=== PATIENT | male | born 1950 | race Caucasian/White ===

== ENCOUNTER 2020-02-23 14:30 | Inpatient (IN) | payer MEDICARE, MEDICAID ==
[~2020-02-23] VITALS: Ht 170.2 cm; Wt 64.9 kg
[2020-02-23] MEDS ORDERED: thiamine 100mg tablet PO ONE (15:25)
[2020-02-23] MEDS ORDERED: folic acid 1mg tablet PO ONE (15:25)
[2020-02-23] MEDS ORDERED: normal saline 1000ML IV soln IVB ONE ×2 (15:25→16:50)
[2020-02-23 15:40] LABS: BASOPHILS % (AUTO) 0.3 % (0-1); EOSINOPHILS % (AUTO) 0.1 % (0-6); HEMATOCRIT 30.7 % (42.0-52.0); HEMOGLOBIN 10.4 g/dl (14.0-17.9); LYMPHOCYTES # (AUTO) 0.4 X10'3 (1.1-4.8); LYMPHOCYTES % (AUTO) 5.2 % (21-51); MEAN CORPUSCULAR HGB CONC 33.9 g/dL (33.0-36.5); MEAN CORPUSCULAR VOLUME 103.4 FL (78-98); MEAN PLATELET VOLUME 7.1 FL (7.4-10.4); MONOCYTES # (AUTO) 1.2 X10'3 (0-0.9); MONOCYTES % (AUTO) 15.9 % (2-12); NEUTROPHILS # (AUTO) 5.9 X10'3 (1.8-7.7); NEUTROPHILS % (AUTO) 78.5 % (42-75); PLATELET COUNT 319 X10'3 (140-440); RED BLOOD COUNT 2.97 X10'6 (4.70-6.10); RED CELL DISTRIBUTION WIDTH 14.1 % (11.5-14.5); WHITE BLOOD COUNT 7.5 X10'3 (4.5-11.0)
[2020-02-23 15:53] LABS: PARTIAL THROMBOPLASTIN TIME 26 SECONDS (22-32)
[2020-02-23 16:00] LABS: ALANINE AMINOTRANSFERASE 47 U/L (12-78); ALBUMIN 3.4 G/DL (3.4-5.0); ALBUMIN/GLOBULIN RATIO 0.9 (1.1-1.5); ALKALINE PHOSPHATASE 72 IU/L (46-116); ANION GAP 18 (8-16); ASPARTATE AMINO TRANSFERASE 75 U/L (10-37); BILIRUBIN,TOTAL 1.1 MG/DL (0.1-1.0); BLOOD UREA NITROGEN 66 MG/DL (7-18); BUN/CREATININE RATIO 24.1 (5.4-32.0); CALCIUM 8.9 MG/DL (8.5-10.1); CHLORIDE 92 MMOL/L (99-107); CREATININE 2.74 MG/DL (0.60-1.10); GLUCOSE 89 MG/DL (70-104); MAGNESIUM 1.5 MG/DL (1.5-2.4); SODIUM 132 MMOL/L (135-145); TOTAL CARBON DIOXIDE 22.4 MMOL/L (24-32); TOTAL PROTEIN 7.1 G/DL (6.4-8.2); eGFR 23 ML/MIN
[2020-02-23 16:03] LABS: POTASSIUM 2.9 MMOL/L (3.5-5.1)
[2020-02-23 16:03] LABS: CLARITY,URINE CLEAR (Clear); COLOR,URINE YELLOW (Yellow); GLUCOSE, URINE NEGATIVE (Neg); KETONES,URINE 15 mg/dl (Neg); LEUKOCYTE ESTERASE ,URINE NEGATIVE (Neg); NITRITES, URINE NEGATIVE (Neg); OCCULT BLOOD,URINE TRACE-INTACT (Neg); PROTEIN,URINE TRACE mg/dl (Neg); UROBILINOGEN,URINE 0.2 E.U/dL (0.2-1.0)
[2020-02-23] MEDS ORDERED: Potassium Cl inj 20 MEQ, magnesium sulf injection 2 GM, folic acid inj. 1 MG, thiamine ... IV ONE ×6 (16:07)
[2020-02-23 16:09] LABS: ETHANOL < 0.010 GM/DL (0.0-0.010); NUCLEATED RED BLOOD CELLS 1 /100WBC (0-0); TOTAL CELLS COUNTED 100
[2020-02-23 16:10] LABS: PLATELET ESTIMATE NORMAL
[2020-02-23 16:11] LABS: UA COLLECTION TYPE URINAL
[2020-02-23 16:15] LABS: BACTERIA,URINE NONE SEEN /HPF (Neg); RBC,URINE NONE SEEN /HPF (0-2); WBC,URINE 0-4 /HPF (0-4)
[2020-02-23 16:16] LABS: HYALINE CASTS 0-3 /LPF (NEGATIVE); MUCUS STRANDS FEW /LPF (Neg); SQUAMOUS EPITHELIAL CELL,UR FEW /LPF (FEW)
[2020-02-23] MEDS ORDERED: Potassium Cl inj 20 MEQ, magnesium sulf injection 2 GM, thiamine inj. 100 MG, MVI, adul... IV ONE ×5 (16:20)
[2020-02-23] MEDS ORDERED: folic acid 1mg/0.2ml inj IV ONE (16:20)
[2020-02-23 16:27] LABS: LIPASE 1614 U/L (73-393)
[2020-02-23] MEDS ORDERED: LEVO137T2 PO (16:52)
[2020-02-23] MEDS ORDERED: ENAL20TA PO (16:52)
[2020-02-23] MEDS ORDERED: HCTZ25T PO (16:52)
[2020-02-23] MEDS ORDERED: ALLO100T25 PO (16:52)
[2020-02-23] MEDS ORDERED: dicyclomine 10 MG capsule PO PRN (16:55)
[2020-02-23] MEDS ORDERED: acetaminophen 325mg tablet PO PRN ×2 (16:55)
[2020-02-23] MEDS ORDERED: dextrose 50%-water 50ml dispensing syringe IV PRN (16:55)
[2020-02-23] MEDS ORDERED: ondansetron/PF 4mg/2ml inj IV PRN (16:55)
[2020-02-23] MEDS ORDERED: HYDROcodone/acetaminophen 10/325mg tab PO PRN (16:55)
[2020-02-23] MEDS ORDERED: haloperidol lactate 5mg/ml inj IM PRN (16:55)
[2020-02-23] MEDS ORDERED: magnesium hydroxide 30ml (MOM) UD suspension PO PRN (16:55)
[2020-02-23] MEDS ORDERED: loperamide 2mg capsule PO PRN ×2 (16:55)
[2020-02-23] MEDS ORDERED: HYDROcodone/acetaminophen 5mg/325mg tablet PO PRN (16:55)
[2020-02-23] MEDS ORDERED: haloperidol 5mg tablet PO PRN (16:55)
[2020-02-23] MEDS ORDERED: morphine 2 MG/ML inj. syringe IV PRN ×2 (16:55)
[2020-02-23] MEDS ORDERED: LORazepam 2 mg/ml vial IV PRN (16:55)
[2020-02-23] MEDS ORDERED: thiamine 100mg/ml 2ml inj. IV ONE (16:55)
[2020-02-23] MEDS ORDERED: mag hydrox/Alum hydrox/simeth 30ml oral suspension PO PRN (16:55)
[2020-02-23] MEDS ORDERED: metoclopramide 5 mg/ml inj IV PRN (16:55)
--- NOTE | 2020-02-23 18:41 | NUR ---
received report from Liban DISA RN, nurse just received report themself so not much known, pt appears alert, pt needs K replacement ordered, pt is ETOH but last drink unknown, pancreatitis, VS stable, pt on RA, awaiting arrival to unit.
--- NOTE | 2020-02-23 18:51 | NUR ---
NOTIFIED PAGER ID: [phone] MESSAGE: Romeo Anne, [id number]- pt K is 2.9, Mg 1.5, no replacement orders in, may you add K replacement. thank you
--- NOTE | 2020-02-23 18:55 | NUR ---
pt arrived to unit with all belongings, tele monitor attached, pt oriented to room, pt transferred from rranchita to bed, VS stable.
[2020-02-23 19:17] VITALS: BP 117/78
[2020-02-23] MEDS ORDERED: potassium CL 10mEq/100ml bag 100 ML IV PRN (19:50)
[2020-02-23] MEDS ORDERED: magnesium Cl slow-release 64mg tablet PO PRN (19:50)
[2020-02-23] MEDS ORDERED: magnesium 4gm in 100ml NS 100 ML IV PRN (19:50)
[2020-02-23] MEDS: potassium Cl 20 mEq SR tablet PO PRN (21:57)
[2020-02-23] MEDS: normal saline 1000ml 1,000 ML IV SCH (21:58)
[2020-02-23 22:00] VITALS: BP 126/83
[2020-02-24 02:00] VITALS: BP 119/86
[2020-02-24 04:33] LABS: BASOPHILS % (AUTO) 0.4 % (0-1); EOSINOPHILS # (AUTO) 0.1 X10'3 (0-0.9); EOSINOPHILS % (AUTO) 1.5 % (0-6); HEMATOCRIT 30.5 % (42.0-52.0); HEMOGLOBIN 10.5 g/dl (14.0-17.9); LYMPHOCYTES # (AUTO) 0.7 X10'3 (1.1-4.8); LYMPHOCYTES % (AUTO) 12.3 % (21-51); MEAN CORPUSCULAR HEMOGLOBIN 35.5 PG (27.0-31.0); MEAN CORPUSCULAR HGB CONC 34.3 g/dL (33.0-36.5); MEAN CORPUSCULAR VOLUME 103.6 FL (78-98); MEAN PLATELET VOLUME 6.8 FL (7.4-10.4); MONOCYTES # (AUTO) 0.9 X10'3 (0-0.9); MONOCYTES % (AUTO) 16.3 % (2-12); NEUTROPHILS # (AUTO) 3.8 X10'3 (1.8-7.7); NEUTROPHILS % (AUTO) 69.5 % (42-75); PLATELET COUNT 296 X10'3 (140-440); RED BLOOD COUNT 2.95 X10'6 (4.70-6.10); RED CELL DISTRIBUTION WIDTH 14.2 % (11.5-14.5); WHITE BLOOD COUNT 5.5 X10'3 (4.5-11.0)
--- NOTE | 2020-02-24 04:33 | NUR ---
pt refused to answer DART questions, states "i have had enough". have attempted many times throughout the night, hopefully pt will be more receptive during the day.
[2020-02-24 04:50] LABS: ALBUMIN 3.1 G/DL (3.4-5.0); ANION GAP 14 (8-16); BLOOD UREA NITROGEN 55 MG/DL (7-18); BUN/CREATININE RATIO 26.6 (5.4-32.0); CALCIUM 8.3 MG/DL (8.5-10.1); CHLORIDE 99 MMOL/L (99-107); CREATININE 2.07 MG/DL (0.60-1.10); GLUCOSE 82 MG/DL (70-104); POTASSIUM 3.2 MMOL/L (3.5-5.1); SODIUM 135 MMOL/L (135-145); TOTAL CARBON DIOXIDE 21.7 MMOL/L (24-32); eGFR 32 ML/MIN
[2020-02-24 06:00] VITALS: BP 122/81
--- NOTE | 2020-02-24 06:00 | NUR ---
Patient in room PCU 3023. I have received report from Travis RN and had the opportunity to ask questions and assume patient care.
--- NOTE | 2020-02-24 06:42 | NUR ---
Problems reprioritized. Patient report given, questions answered & plan of care reviewed with Chloe EVANS.
[2020-02-24] MEDS: K and/or MAG REPLACEMENT MC SCH ×2 (08:00→20:00)
[2020-02-24] MEDS ORDERED: enoxaparin 40mg/0.4ml syringe SQ SCH (08:00)
[2020-02-24] MEDS: folic acid 1mg tablet PO SCH (09:11)
[2020-02-24] MEDS: thiamine 100mg tablet PO SCH (09:11)
[2020-02-24] MEDS: potassium Cl 20 mEq SR tablet PO PRN ×2 (09:12→14:40)
[2020-02-24] MEDS: enoxaparin 40mg/0.4ml syringe SUBCUT SCH (09:12)
[2020-02-24] MEDS: multivitamins, therapeutics tablet PO SCH (09:12)
[2020-02-24] MEDS: normal saline 1000ml 1,000 ML IV SCH ×3 (09:17→22:52)
[2020-02-24 11:00] VITALS: BP 100/63
[2020-02-24 11:13] LABS: LIPASE 1505 U/L (73-393)
[2020-02-24 15:00] VITALS: BP 81/54
--- NOTE | 2020-02-24 18:15 | NUR ---
Problems reprioritized. Patient report given, questions answered & plan of care reviewed with Travis RN.
--- NOTE | 2020-02-24 18:30 | NUR ---
Patient in room PCU 3023. I have received report from Chloe EVANS and had the opportunity to ask questions and assume patient care.
[2020-02-24 19:00] VITALS: BP 111/80
[2020-02-24] MEDS: allopurinol 100mg tablet PO SCH (19:56)
[2020-02-24 23:00] VITALS: BP 135/86
[2020-02-25] MEDS: potassium Cl 20 mEq SR tablet PO PRN (00:38)
[2020-02-25 03:00] VITALS: BP 146/102
--- NOTE | 2020-02-25 03:58 | NUR ---
pt REFUSING CARE pt refuses to allow staff to clean his bottom of fecal matter and urine. pt yelling at staff "leave me the fuck alone". pt has excoriated/macerated back side from elimination waste. pt also threw soiled chucks at staff earlier in shift. offered a rectal tube to prevent further skin break down but this was refused. pt states "let me sit it in i dont care, my skin is fine", attempted to educate pt on importance of keeping clean (elimination waste) from contact with skin. pt repeated previous statement by yelling "leave me the fuck alone". will attempt to clean pt again at a later time.
[2020-02-25 05:52] LABS: BASOPHILS % (AUTO) 0.5 % (0-1); EOSINOPHILS # (AUTO) 0.1 X10'3 (0-0.9); EOSINOPHILS % (AUTO) 1.8 % (0-6); HEMATOCRIT 26.2 % (42.0-52.0); LYMPHOCYTES # (AUTO) 0.5 X10'3 (1.1-4.8); LYMPHOCYTES % (AUTO) 11.1 % (21-51); MEAN CORPUSCULAR HEMOGLOBIN 35.2 PG (27.0-31.0); MEAN CORPUSCULAR HGB CONC 34.3 g/dL (33.0-36.5); MEAN CORPUSCULAR VOLUME 102.5 FL (78-98); MEAN PLATELET VOLUME 6.8 FL (7.4-10.4); MONOCYTES # (AUTO) 0.6 X10'3 (0-0.9); MONOCYTES % (AUTO) 15.6 % (2-12); NEUTROPHILS # (AUTO) 2.9 X10'3 (1.8-7.7); PLATELET COUNT 280 X10'3 (140-440); RED BLOOD COUNT 2.56 X10'6 (4.70-6.10); RED CELL DISTRIBUTION WIDTH 13.9 % (11.5-14.5); WHITE BLOOD COUNT 4.1 X10'3 (4.5-11.0)
[2020-02-25 05:53] LABS: ALBUMIN 2.6 G/DL (3.4-5.0); ANION GAP 10 (8-16); BLOOD UREA NITROGEN 33 MG/DL (7-18); CALCIUM 8.1 MG/DL (8.5-10.1); CHLORIDE 102 MMOL/L (99-107); CREATININE 1.27 MG/DL (0.60-1.10); GLUCOSE 104 MG/DL (70-104); MAGNESIUM 1.4 MG/DL (1.5-2.4); POTASSIUM 3.6 MMOL/L (3.5-5.1); SODIUM 134 MMOL/L (135-145); TOTAL CARBON DIOXIDE 22.4 MMOL/L (24-32); eGFR 56 ML/MIN
--- NOTE | 2020-02-25 06:20 | NUR ---
Patient in room PCU 3023. I have received report from Travis RN and had the opportunity to ask questions and assume patient care.
--- NOTE | 2020-02-25 06:22 | NUR ---
Problems reprioritized. Patient report given, questions answered & plan of care reviewed with Chloe EVANS.
[2020-02-25] MEDS: enoxaparin 40mg/0.4ml syringe SUBCUT SCH (07:13)
[2020-02-25 07:18] LABS: ALANINE AMINOTRANSFERASE 29 U/L (12-78); ALBUMIN/GLOBULIN RATIO 0.9 (1.1-1.5); ALKALINE PHOSPHATASE 50 IU/L (46-116); ASPARTATE AMINO TRANSFERASE 39 U/L (10-37); BILIRUBIN,DIRECT 0.2 MG/DL (0-0.3); BILIRUBIN,TOTAL 0.5 MG/DL (0.1-1.0); LIPASE 962 U/L (73-393); TOTAL PROTEIN 5.4 G/DL (6.4-8.2)
[2020-02-25] MEDS: levoTHYROXINE 25mcg tablet PO SCH (07:30)
[2020-02-25] MEDS: levoTHYROXINE 112mcg tablet PO SCH (07:30)
--- NOTE | 2020-02-25 07:45 | NUR ---
Upon checking on the patient, I found he pulled his IV out and took his Tele monitor off. I educated him on the importance of these things, and he is not agreeable to. I am notifying Dr. Newell. Patient is uncompliant and refusing care at this time. Will continue to encourage complying with care.
[2020-02-25] MEDS: K and/or MAG REPLACEMENT MC SCH ×2 (08:00→20:00)
[2020-02-25] MEDS: allopurinol 100mg tablet PO SCH ×2 (08:00→20:00)
[2020-02-25] MEDS: folic acid 1mg tablet PO SCH (08:00)
[2020-02-25] MEDS: multivitamins, therapeutics tablet PO SCH (08:00)
[2020-02-25] MEDS: thiamine 100mg tablet PO SCH (08:00)
[2020-02-25] MEDS: normal saline 1000ml 1,000 ML IV SCH ×2 (08:52→17:29)
[2020-02-25 11:00] VITALS: BP 115/76
[2020-02-25 15:00] VITALS: BP 127/92
--- NOTE | 2020-02-25 16:17 | NUR ---
Patient in room PCU 3023. I have received report from Chloe EVANS and had the opportunity to ask questions , awaiting patient arrival from PCU
[2020-02-25 16:53] VITALS: BP 136/80
[2020-02-25] MEDS ORDERED: LORazepam 1 MG tablet PO PRN (16:55)
[2020-02-25 18:00] VITALS: BP 99/69
--- NOTE | 2020-02-25 19:25 | NUR ---
Problems reprioritized. Patient report given, questions answered & plan of care reviewed with NATHAN Davis.
--- NOTE | 2020-02-25 20:00 | NUR ---
pt refusing orthostatic vitals
--- NOTE | 2020-02-25 21:00 | NUR ---
patient refusing meds and PO Ativan. becoming increasingly agitated despite attempts to calm
[2020-02-25] MEDS: LORazepam 2 mg/ml vial IV PRN ×3 (21:17→23:45)
--- NOTE | 2020-02-25 21:40 | NUR ---
per pt, okay to talk to step daughter Sera if calls back
--- NOTE | 2020-02-25 22:35 | NUR ---
pt still attempting to get out of bed on own despite unsteadiness and attempts at reorientation
[2020-02-26] VITALS: BP 139/87
[2020-02-26] MEDS ORDERED: haloperidol lactate 5mg/ml inj IM PRN (00:10)
[2020-02-26] MEDS ORDERED: LORazepam 2 mg/ml vial IV PRN ×2 (00:10)
[2020-02-26] MEDS: normal saline 1000ml 1,000 ML IV SCH ×2 (04:52→14:52)
[2020-02-26 05:49] LABS: BASOPHILS % (AUTO) 0.6 % (0-1); EOSINOPHILS % (AUTO) 1.5 % (0-6); HEMATOCRIT 25.5 % (42.0-52.0); HEMOGLOBIN 8.6 g/dl (14.0-17.9); LYMPHOCYTES # (AUTO) 0.5 X10'3 (1.1-4.8); LYMPHOCYTES % (AUTO) 14.5 % (21-51); MEAN CORPUSCULAR HEMOGLOBIN 35.1 PG (27.0-31.0); MEAN CORPUSCULAR HGB CONC 33.9 g/dL (33.0-36.5); MEAN CORPUSCULAR VOLUME 103.6 FL (78-98); MEAN PLATELET VOLUME 6.9 FL (7.4-10.4); MONOCYTES # (AUTO) 0.6 X10'3 (0-0.9); MONOCYTES % (AUTO) 19.3 % (2-12); NEUTROPHILS # (AUTO) 2.2 X10'3 (1.8-7.7); NEUTROPHILS % (AUTO) 64.1 % (42-75); PLATELET COUNT 285 X10'3 (140-440); RED BLOOD COUNT 2.46 X10'6 (4.70-6.10); RED CELL DISTRIBUTION WIDTH 13.9 % (11.5-14.5); WHITE BLOOD COUNT 3.4 X10'3 (4.5-11.0)
[2020-02-26 06:03] LABS: ALBUMIN 2.7 G/DL (3.4-5.0); ANION GAP 10 (8-16); BLOOD UREA NITROGEN 18 MG/DL (7-18); CALCIUM 8.2 MG/DL (8.5-10.1); CHLORIDE 103 MMOL/L (99-107); CREATININE 1.06 MG/DL (0.60-1.10); GLUCOSE 95 MG/DL (70-104); MAGNESIUM 1.4 MG/DL (1.5-2.4); SODIUM 135 MMOL/L (135-145); TOTAL CARBON DIOXIDE 21.8 MMOL/L (24-32); eGFR 69 ML/MIN
--- NOTE | 2020-02-26 06:24 | NUR ---
Patient in room BAO 358. I have received report from NATHAN Davis and had the opportunity to ask questions and assume patient care.
[2020-02-26 06:29] LABS: ANISOCYTOSIS 1+; PLATELET ESTIMATE NORMAL; TOTAL CELLS COUNTED 100
[2020-02-26 07:00] VITALS: BP 114/87
[2020-02-26] MEDS: potassium Cl 20 mEq SR tablet PO PRN ×3 (07:22→17:57)
[2020-02-26] MEDS: allopurinol 100mg tablet PO SCH ×2 (07:23→21:50)
[2020-02-26] MEDS: levoTHYROXINE 25mcg tablet PO SCH (07:23)
[2020-02-26] MEDS: levoTHYROXINE 112mcg tablet PO SCH (07:23)
[2020-02-26] MEDS: folic acid 1mg tablet PO SCH (07:24)
[2020-02-26] MEDS: multivitamins, therapeutics tablet PO SCH (07:24)
[2020-02-26] MEDS: thiamine 100mg tablet PO SCH (07:24)
[2020-02-26] MEDS: enoxaparin 40mg/0.4ml syringe SUBCUT SCH (07:29)
[2020-02-26] MEDS: K and/or MAG REPLACEMENT MC SCH ×2 (08:00→20:00)
--- NOTE | 2020-02-26 10:49 | NUR ---
Pt sedated this morning. unable to have a conversation and difficult to arouse. Received order per Dr. Newell to hold all Ativan until pt comes back to his normal.
[2020-02-26 11:00] VITALS: BP 153/93
--- NOTE | 2020-02-26 15:05 | NUR ---
Pt climbed out of bed. was found kneeling holding to bedside rail. after assessment assisted pt back to bed. No s/s of injuries noted. V/S 97.7, 74, 14, 96% 130/82. Bed alarm on at this time. will cont. close monitoring.
--- NOTE | 2020-02-26 17:18 | NUR ---
Patient bed alarm went off, went to assess patient and patient was extremely weak and attempting to get up. Instructed patient that his nurse stated he's too weak to walk at this time only to start punching staff. Security was called and patient primary nurse was consulted to see if she would like me to administer any prn's and she asked me to administer the PRN halodol for agitation/aggression. Halodol administered in the right deltoid.
--- NOTE | 2020-02-26 18:37 | NUR ---
Problems reprioritized. Patient report given, questions answered & plan of care reviewed with NATHAN Davis. Pt resting quietly, last dose of PO K+ replacement given.
[2020-02-27] VITALS (11 sets, daily range): BP systolic 84–151; BP diastolic 41–94
[2020-02-27] MEDS: normal saline 1000ml 1,000 ML IV SCH ×3 (00:52→20:52)
--- NOTE | 2020-02-27 01:13 | NUR ---
pt changed after multiple refusals pt agreed to have bed changed due to incontinence. repeatedly shouted explicative. barrier cream applied to bottom. pt returned to resting comfortably after
[2020-02-27 05:11] LABS: BASOPHILS % (AUTO) 0.7 % (0-1); EOSINOPHILS # (AUTO) 0.1 X10'3 (0-0.9); EOSINOPHILS % (AUTO) 2.2 % (0-6); HEMATOCRIT 25.2 % (42.0-52.0); HEMOGLOBIN 8.6 g/dl (14.0-17.9); LYMPHOCYTES # (AUTO) 0.4 X10'3 (1.1-4.8); LYMPHOCYTES % (AUTO) 12.7 % (21-51); MEAN CORPUSCULAR HGB CONC 34.1 g/dL (33.0-36.5); MEAN CORPUSCULAR VOLUME 102.7 FL (78-98); MEAN PLATELET VOLUME 6.9 FL (7.4-10.4); MONOCYTES # (AUTO) 0.5 X10'3 (0-0.9); MONOCYTES % (AUTO) 13.9 % (2-12); NEUTROPHILS # (AUTO) 2.3 X10'3 (1.8-7.7); NEUTROPHILS % (AUTO) 70.5 % (42-75); PLATELET COUNT 327 X10'3 (140-440); RED BLOOD COUNT 2.45 X10'6 (4.70-6.10); RED CELL DISTRIBUTION WIDTH 14.2 % (11.5-14.5); WHITE BLOOD COUNT 3.3 X10'3 (4.5-11.0)
[2020-02-27 05:19] LABS: ALBUMIN 2.5 G/DL (3.4-5.0); ANION GAP 8 (8-16); BLOOD UREA NITROGEN 14 MG/DL (7-18); BUN/CREATININE RATIO 13.5 (5.4-32.0); CALCIUM 8.4 MG/DL (8.5-10.1); CHLORIDE 107 MMOL/L (99-107); CREATININE 1.04 MG/DL (0.60-1.10); GLUCOSE 103 MG/DL (70-104); MAGNESIUM 2.3 MG/DL (1.5-2.4); POTASSIUM 4.3 MMOL/L (3.5-5.1); SODIUM 136 MMOL/L (135-145); TOTAL CARBON DIOXIDE 21.5 MMOL/L (24-32); eGFR 70 ML/MIN
[2020-02-27] MEDS: folic acid 1mg tablet PO SCH (07:56)
[2020-02-27] MEDS: allopurinol 100mg tablet PO SCH ×2 (07:56→20:00)
[2020-02-27] MEDS: levoTHYROXINE 112mcg tablet PO SCH (07:56)
[2020-02-27] MEDS: levoTHYROXINE 25mcg tablet PO SCH (07:56)
[2020-02-27] MEDS: multivitamins, therapeutics tablet PO SCH (07:56)
[2020-02-27] MEDS: thiamine 100mg tablet PO SCH (07:56)
[2020-02-27] MEDS: enoxaparin 40mg/0.4ml syringe SUBCUT SCH (07:57)
[2020-02-27] MEDS: K and/or MAG REPLACEMENT MC SCH ×2 (08:00→20:00)
[2020-02-27] MEDS ORDERED: LORazepam 2 mg/ml vial IV PRN (16:55)
[2020-02-27] MEDS ORDERED: LORazepam 1 MG tablet PO PRN (16:55)
--- NOTE | 2020-02-27 17:55 | NUR ---
Patient leaving for GI Lab for MRCP procedure.
[2020-02-27] MEDS ORDERED: fentaNYL/PF 50MCG/1 ML 2ML syringe ONE (18:12)
[2020-02-27] MEDS ORDERED: iohexol 300 MG/1 ML 50ml polymer ONE (18:13)
[2020-02-27] MEDS ORDERED: LIDOcaine Viscous 15ml cup ONE (18:13)
[2020-02-27] MEDS ORDERED: MIDAZolam 5mg/5ml vial ONE (18:13)
[2020-02-27] MEDS ORDERED: glucagon, human recombinant 1mg kit ONE ×2 (18:13)
--- NOTE | 2020-02-27 18:40 | NUR ---
Problems reprioritized. Patient report given, questions answered & plan of care reviewed with NATHAN Davis.
[2020-02-27] MEDS ORDERED: levoFLOXACIN-Levaquin 500mg/D5 100 ML IV ONE (19:17)
--- NOTE | 2020-02-27 21:00 | NUR ---
RECEIVED REPORT FROM ALEXIS EVANS AND ASSUMED PATIENT CARE
[2020-02-28] VITALS: BP 130/83
--- NOTE | 2020-02-28 06:06 | NUR ---
REPORT GIVEN TO TIERNEY EVANS
--- NOTE | 2020-02-28 06:10 | NUR ---
Patient in room BAO 359. I have received report from NATHAN Berger and had the opportunity to ask questions and assume patient care.
[2020-02-28 06:15] LABS: BASOPHILS % (AUTO) 0.4 % (0-1); EOSINOPHILS # (AUTO) 0.1 X10'3 (0-0.9); EOSINOPHILS % (AUTO) 1.5 % (0-6); HEMATOCRIT 26.8 % (42.0-52.0); HEMOGLOBIN 8.9 g/dl (14.0-17.9); LYMPHOCYTES # (AUTO) 0.4 X10'3 (1.1-4.8); LYMPHOCYTES % (AUTO) 8.3 % (21-51); MEAN CORPUSCULAR HEMOGLOBIN 34.5 PG (27.0-31.0); MEAN CORPUSCULAR HGB CONC 33.3 g/dL (33.0-36.5); MEAN CORPUSCULAR VOLUME 103.6 FL (78-98); MEAN PLATELET VOLUME 6.5 FL (7.4-10.4); MONOCYTES # (AUTO) 0.6 X10'3 (0-0.9); MONOCYTES % (AUTO) 11.3 % (2-12); NEUTROPHILS # (AUTO) 3.9 X10'3 (1.8-7.7); NEUTROPHILS % (AUTO) 78.5 % (42-75); PLATELET COUNT 335 X10'3 (140-440); RED BLOOD COUNT 2.59 X10'6 (4.70-6.10); RED CELL DISTRIBUTION WIDTH 14.3 % (11.5-14.5); WHITE BLOOD COUNT 4.9 X10'3 (4.5-11.0)
[2020-02-28 06:23] LABS: ALBUMIN 2.6 G/DL (3.4-5.0); ANION GAP 9 (8-16); BLOOD UREA NITROGEN 8 MG/DL (7-18); BUN/CREATININE RATIO 7.1 (5.4-32.0); CALCIUM 8.4 MG/DL (8.5-10.1); CHLORIDE 106 MMOL/L (99-107); CREATININE 1.13 MG/DL (0.60-1.10); GLUCOSE 123 MG/DL (70-104); POTASSIUM 3.9 MMOL/L (3.5-5.1); SODIUM 135 MMOL/L (135-145); TOTAL CARBON DIOXIDE 20.2 MMOL/L (24-32); eGFR 64 ML/MIN
[2020-02-28 08:00] VITALS: BP_SYST 105; BP_SYST 122; BP_SYST 123; BP_SYST 124; BP_SYST 135; BP_SYST 140; BP_SYST 145; BP_DIAS 57; BP_DIAS 62; BP_DIAS 65; BP_DIAS 71; BP_DIAS 74; BP_DIAS 85; BP_DIAS 93
[2020-02-28] MEDS: K and/or MAG REPLACEMENT MC SCH ×2 (08:00→20:00)
[2020-02-28] MEDS: folic acid 1mg tablet PO SCH (08:55)
[2020-02-28] MEDS: levoTHYROXINE 112mcg tablet PO SCH (08:55)
[2020-02-28] MEDS: allopurinol 100mg tablet PO SCH ×2 (08:56→19:17)
[2020-02-28] MEDS: thiamine 100mg tablet PO SCH (08:56)
[2020-02-28] MEDS: multivitamins, therapeutics tablet PO SCH (08:56)
[2020-02-28] MEDS: levoTHYROXINE 25mcg tablet PO SCH (09:00)
[2020-02-28] MEDS: normal saline 1000ml 1,000 ML IV SCH ×2 (09:04→22:40)
--- NOTE | 2020-02-28 10:23 | NUR ---
Initial: Pt admit with hypotension and NEISHA possibly r/t dehydration and acute versus acute on chronic pancreatitis. Pt s/p CT and ERCP which shows choledocholithiasis per MD notes. Pt currently receiving routine Thiamine, Folic acid, and MVI for EtOH hx. Pt previously on a full liquid diet documented with 75-100% PO intake however now on a clear liquid diet s/p ERCP, pending PO intake. LBM 02/26 documented as diarrhea. Pt reports diarrhea over the past couple of weeks per H&P, PRN Imodium available on med list. Pt documented as A/O x 3 and confused per physical assessment, pancreatitis education not appropriate at this time. Will continue to follow and monitor need for nutrition intervention. Recommendations: 1) Advance to low fat diet as medically indicated 2) Continue routine Thiamine, Folic acid, and MVI given EtOH hx and elevated MCV 3) Anti-diarrheal PRN 4) Scaled weights per rx 5) Pancreatitis nutrition therapy education once fully alert and oriented Addendum: 02/28/20 at [address] Amended: Links added.
[2020-02-28 12:04] VITALS: BP 159/95
[2020-02-28 18:00] VITALS: BP 149/83
--- NOTE | 2020-02-28 18:10 | NUR ---
Problems reprioritized. Patient report given, questions answered & plan of care reviewed with NATHAN Duval.
--- NOTE | 2020-02-28 18:35 | NUR ---
Patient in room BAO 359. I have received report from NATHAN Islas and had the opportunity to ask questions and assume patient care.
[2020-02-28] MEDS: mag hydrox/Alum hydrox/simeth 30ml oral suspension PO PRN (22:38)
--- NOTE | 2020-02-28 22:49 | NUR ---
patient refused Orthostatic vitals this shift. Addendum: 02/28/20 at 2249 by Mukund Novoa RN Amended: Links added.
[2020-02-29] MEDS: normal saline 1000ml 1,000 ML IV SCH (02:52)
--- NOTE | 2020-02-29 06:36 | NUR ---
Problems reprioritized. Patient report given, questions answered & plan of care reviewed with NATHAN Miranda.
[2020-02-29 07:00] VITALS: BP 155/100
--- NOTE | 2020-02-29 07:11 | NUR ---
Patient in room BAO 359. I have received report from NATHAN Duval and had the opportunity to ask questions and assume patient care.
[2020-02-29] MEDS: multivitamins, therapeutics tablet PO SCH (07:24)
[2020-02-29] MEDS: allopurinol 100mg tablet PO SCH (07:24)
[2020-02-29] MEDS: levoTHYROXINE 25mcg tablet PO SCH (07:24)
[2020-02-29] MEDS: levoTHYROXINE 112mcg tablet PO SCH (07:24)
[2020-02-29] MEDS: thiamine 100mg tablet PO SCH (07:24)
[2020-02-29] MEDS: folic acid 1mg tablet PO SCH (07:24)
[2020-02-29 08:00] VITALS: BP_SYST 137; BP_SYST 155; BP_SYST 160; BP_DIAS 100; BP_DIAS 104; BP_DIAS 92
[2020-02-29] MEDS: enoxaparin 40mg/0.4ml syringe SUBCUT SCH (10:55)
[2020-02-29] MEDS: mag hydrox/Alum hydrox/simeth 30ml oral suspension PO PRN (11:59)
--- NOTE | 2020-02-29 14:10 | NUR ---
Pt D/C'd home in stable condition. Medication and discharge instructions given to pt. IV removed with cannula intact. pt escorted to main lobby on w/c. left the hospital via [employer] with [employer] carp[employer].
--- NOTE | 2020-02-29 14:16 | NUR ---
F/u: Pt discharged prior to RD being available for bedside visit. Written pancreatitis nutrition therapy education and RD contact information mailed to home address found in EMR. Will remain available. Addendum: 02/29/20 at [address] Amended: Links added.
--- NOTE | 2020-03-02 12:00 | NUR ---
Case Management DC follow up: Unable to contact at this time. Continuous BZ signal. Will try again at later time. pt set up for [facility] [employer], has nancy & RANDALL . APS report has been filed. PCP Trevor Lauren, [facility].
== END 2020-02-29 12:54 | disposition home health service (06) | DRG 314 ==
LOC: ER 14:31 → ED HOLD 16:52 → PCU 3S 18:55 → SUR 3N 02-25 16:30
PROVIDERS: ADMIT Internal Medicine; ATTEND Internal Medicine
PROC: 0FJB8ZZ Inspection of Hepatobiliary Duct, Via Natural or Artificial Opening Endoscopic (ICD-10-PCS; principal; 2020-02-27)
PROC: BF131ZZ Fluoroscopy of Gallbladder and Bile Ducts using Low Osmolar Contrast (ICD-10-PCS; 2020-02-27)
DX: I95.9 Hypotension, unspecified (principal); K85.90 Acute pancreatitis without necrosis or infection, unspecified; G92 Toxic encephalopathy; N17.9 Acute kidney failure, unspecified; K86.1 Other chronic pancreatitis; I10 Essential (primary) hypertension; E87.6 Hypokalemia; K80.70 Calculus of gallbladder and bile duct without cholecystitis without obstruction; D53.9 Nutritional anemia, unspecified; M10.9 Gout, unspecified; G89.29 Other chronic pain; D50.9 Iron deficiency anemia, unspecified; E03.9 Hypothyroidism, unspecified; Z85.048 Personal history of other malignant neoplasm of rectum, rectosigmoid junction, and anus; W18.39XA Other fall on same level, initial encounter; Y93.89 Activity, other specified; Y92.89 Other specified places as the place of occurrence of the external cause; Y99.8 Other external cause status
CPT/HCPCS: 36415; 43262; 43264; 70450; 74176; 74181; 80048; 80053; 80076; 80320; 81001; 82948; 83690; 83735; 83880; 84132; 84443; 84484; 85025; 85610; 85730; 87081; 93005; 96360; 97110; 97116; 97162; 97530; 97535; 99152; 99153; 99285; A4620; C1769; G0378; J1610; J1630; J1650; J1956; J2060; J2250; J3010; J3411; J3475; J3480; J3490; J7030; J7040; Q9967

== ENCOUNTER 2020-11-05 17:37 | Inpatient (IN) | payer MEDICARE, MEDICAID ==
[~2020-11-05] VITALS: Ht 170.2 cm; Wt 73.0 kg
[~2020-11-05 17:37] MED LIST: ALLO100T25 PO; ENAL-79 PO; HYDR25TA5 PO; LEVO137T2 PO
[2020-11-05] MEDS ORDERED: thiamine 100mg/ml 2ml inj. IV ONE (17:50)
[2020-11-05] MEDS ORDERED: normal saline 1000ML IV soln IV ONE (17:50)
[2020-11-05] MEDS ORDERED: folic acid 1mg/0.2ml inj IV ONE (17:50)
[2020-11-05] MEDS ORDERED: dextrose 50%-water 50ml dispensing syringe IV ONE (18:05)
[2020-11-05 18:12] LABS: BASOPHILS % (AUTO) 0.2 % (0-1); EOSINOPHILS % (AUTO) 0 % (0-6); HEMATOCRIT 36.1 % (42.0-52.0); HEMOGLOBIN 12.1 g/dl (14.0-17.9); LYMPHOCYTES # (AUTO) 0.5 X10'3 (1.1-4.8); LYMPHOCYTES % (AUTO) 3.4 % (21-51); MEAN CORPUSCULAR HEMOGLOBIN 34.7 PG (27.0-31.0); MEAN CORPUSCULAR HGB CONC 33.5 g/dL (33.0-36.5); MEAN CORPUSCULAR VOLUME 103.4 FL (78-98); MEAN PLATELET VOLUME 7.4 FL (7.4-10.4); MONOCYTES # (AUTO) 0.8 X10'3 (0-0.9); MONOCYTES % (AUTO) 5.3 % (2-12); NEUTROPHILS # (AUTO) 13.5 X10'3 (1.8-7.7); NEUTROPHILS % (AUTO) 91.1 % (42-75); PLATELET COUNT 166 X10'3 (140-440); RED BLOOD COUNT 3.49 X10'6 (4.70-6.10); WHITE BLOOD COUNT 14.8 X10'3 (4.5-11.0)
[2020-11-05 18:29] LABS: ALANINE AMINOTRANSFERASE 138 U/L (12-78); ALBUMIN 2.9 G/DL (3.4-5.0); ALBUMIN/GLOBULIN RATIO 0.7 (1.1-1.5); ALKALINE PHOSPHATASE 53 IU/L (46-116); ANION GAP 21 (8-16); ASPARTATE AMINO TRANSFERASE 529 U/L (10-37); BILIRUBIN,TOTAL 1.4 MG/DL (0.1-1.0); BLOOD UREA NITROGEN 39 MG/DL (7-18); BUN/CREATININE RATIO 17.2 (5.4-32.0); CALCIUM 8.2 MG/DL (8.5-10.1); CHLORIDE 103 MMOL/L (99-107); CREATININE 2.27 MG/DL (0.60-1.10); ETHANOL < 0.010 GM/DL (0.0-0.010); GLUCOSE 74 MG/DL (70-104); POTASSIUM 4.1 MMOL/L (3.5-5.1); SODIUM 142 MMOL/L (135-145); TOTAL CARBON DIOXIDE 18.2 MMOL/L (24-32); TOTAL PROTEIN 7.3 G/DL (6.4-8.2); eGFR 29 ML/MIN
[2020-11-05] MEDS ORDERED: CefTRIAXone 2gm/D5W 50ml BAG 50 ML IV ONE (18:40)
[2020-11-05] MEDS ORDERED: azithromycin/NS 500mg/250ml 250 ML IV ONE ×2 (18:45→21:55)
[2020-11-05] MEDS ORDERED: ipratropium/albuterol 3ml nebule NEB ONE (18:55)
[2020-11-05] MEDS ORDERED: methylPREDNISolone sod succ 125mg/2ml vial IV ONE (18:55)
[2020-11-05 19:31] LABS: ABG BASE EXCESS -8.2 mmol/L (-2.0-2.0); ABG HCO3 15.7 mmol/L (22.0-26.0); ABG OXYGEN SATURATION 83.5 % (94-97); ABG PCO2 (T) 27.6 mmHg (35.0-48.0); ABG PO2 (T) 51.4 mmHg (75.0-100.0); FCOHb 0.5 % (0.0-3.9); FMetHb 0.1 % (0.0-1.5); TOTAL HEMOGLOBIN 11.7 G/dl (14.0-18.0)
[2020-11-05 19:50] LABS: CLARITY,URINE CLOUDY (Clear); GLUCOSE, URINE NEGATIVE (Neg); KETONES,URINE TRACE mg/dl (Neg); LEUKOCYTE ESTERASE ,URINE NEGATIVE (Neg); NITRITES, URINE NEGATIVE (Neg); OCCULT BLOOD,URINE LARGE (Neg); PROTEIN,URINE >=300 mg/dl (Neg)
[2020-11-05 20:00] LABS: COLOR,URINE DARK YELLOW (Yellow); UA COLLECTION TYPE FOLEY CATH
[2020-11-05 20:06] LABS: AMORPHOUS URATES 2+; BACTERIA,URINE FEW /HPF (Neg); CAL OXALATE CRYSTALS FEW /HPF (NEGATIVE); MUCUS STRANDS MODERATE /LPF (Neg); URINE AMPHETAMINE SCREEN NEGATIVE (Neg); URINE BARBITUATE SCREEN NEGATIVE (Neg); URINE BENZODIAZEPINES SCREEN NEGATIVE (Neg); URINE CANNABINOID SCREEN NEGATIVE (Neg); URINE COCAINE SCREEN NEGATIVE (Neg); URINE METHADONE SCREEN NEGATIVE (Neg); URINE OPIATE SCREEN NEGATIVE (Neg); URINE PHENCYCLIDINE SCREEN NEGATIVE (Neg); WBC,URINE 0-4 /HPF (0-4)
[2020-11-05 20:07] LABS: COARSE GRANULAR CAST 0-3 /LPF (NEGATIVE); SQUAMOUS EPITHELIAL CELL,UR FEW /LPF (FEW); TRANSITIONAL EPI CELLS,URINE MODERATE /HPF
[2020-11-05] MEDS ORDERED: heparin 10,000 units/1 ML INJ IV ONE (20:30)
[2020-11-05] MEDS: heparin 25,000 UNIT/250ml bag 250 ML IV SCH (20:30)
[2020-11-05] MEDS ORDERED: thiamine inj. 100 MG in normal saline 100ml IV soln 99 ML IV ONE (20:45)
[2020-11-05] MEDS ORDERED: magnesium 2GM in 50ml NS 50 ML IV ONE (20:45)
[2020-11-05] MEDS ORDERED: phenobarbital inj 260 MG in normal saline 100ml IV soln 100 ML IV ONE (20:45)
[2020-11-05] MEDS ORDERED: phenobarbital sod 130mg/ml inj. IV ONE (20:55)
[2020-11-05 20:56] LABS: D-DIMER 5.58 MG/L FEU (0-0.50)
[2020-11-05 21:22] LABS: TOTAL CELLS COUNTED 100
[2020-11-05 21:23] LABS: ANISOCYTOSIS FEW; PLATELET ESTIMATE NORMAL
[2020-11-05] MEDS ORDERED: LIDOcaine 2% 10ml TOPICAL JELLY (Urojet) TP ONE (21:30)
[2020-11-05] MEDS ORDERED: LORazepam 2 mg/ml vial IV PRN (21:30)
[2020-11-05] MEDS ORDERED: dextrose 5%-normal saline 1,000 ML IV SCH (21:45)
[2020-11-05] MEDS ORDERED: albumin (Human) 5% 250ml 250 ML IV ONE (21:45)
[2020-11-06] VITALS (8 sets, daily range): BP systolic 122–134; BP diastolic 78–92
[2020-11-06 02:56] LABS: BASOPHILS % (AUTO) 0.1 % (0-1); EOSINOPHILS % (AUTO) 0 % (0-6); HEMATOCRIT 33.1 % (42.0-52.0); HEMOGLOBIN 10.9 g/dl (14.0-17.9); LYMPHOCYTES # (AUTO) 0.5 X10'3 (1.1-4.8); LYMPHOCYTES % (AUTO) 3.4 % (21-51); MEAN CORPUSCULAR HEMOGLOBIN 34.8 PG (27.0-31.0); MEAN CORPUSCULAR VOLUME 105.4 FL (78-98); MEAN PLATELET VOLUME 7.7 FL (7.4-10.4); MONOCYTES # (AUTO) 0.9 X10'3 (0-0.9); MONOCYTES % (AUTO) 5.7 % (2-12); NEUTROPHILS # (AUTO) 13.7 X10'3 (1.8-7.7); NEUTROPHILS % (AUTO) 90.8 % (42-75); PLATELET COUNT 175 X10'3 (140-440); RED BLOOD COUNT 3.14 X10'6 (4.70-6.10)
[2020-11-06 03:03] LABS: ALANINE AMINOTRANSFERASE 129 U/L (12-78); ALBUMIN 2.8 G/DL (3.4-5.0); ALBUMIN/GLOBULIN RATIO 0.7 (1.1-1.5); ALKALINE PHOSPHATASE 43 IU/L (46-116); ANION GAP 23 (8-16); ASPARTATE AMINO TRANSFERASE 457 U/L (10-37); BILIRUBIN,TOTAL 0.9 MG/DL (0.1-1.0); BLOOD UREA NITROGEN 44 MG/DL (7-18); BUN/CREATININE RATIO 16.2 (5.4-32.0); CALCIUM 7.7 MG/DL (8.5-10.1); CHLORIDE 105 MMOL/L (99-107); CREATININE 2.71 MG/DL (0.60-1.10); GLUCOSE 126 MG/DL (70-104); SODIUM 143 MMOL/L (135-145); eGFR 23 ML/MIN
[2020-11-06 03:06] LABS: TOTAL CARBON DIOXIDE 14.7 MMOL/L (24-32)
[2020-11-06 04:07] LABS: PLATELET ESTIMATE NORMAL; TOTAL CELLS COUNTED 100; TOXIC GRANULATION 3+; TOXIC VACUOLATION 3+
[2020-11-06 04:08] LABS: ANISOCYTOSIS FEW
--- NOTE | 2020-11-06 04:29 | NUR ---
Communicated critical value co2 of 14.[address] Garcia and troponin of .10, no orders recieved at this time.
[2020-11-06] MEDS ORDERED: ringers solution, lacted 1,000 ML IV ONE (05:15)
[2020-11-06 06:15] LABS: CREATINE KINASE 13320 U/L (39-308)
[2020-11-06] MEDS: sodium bicarbonate (8.4%) inj. 75 MEQ in dextrose 5% water 500ml 500 ML IV SCH ×5 (06:31→22:38)
--- NOTE | 2020-11-06 07:00 | NUR ---
Pt able to state his name but unable to report time place or event. Pt reorientated and pt proceeds to reports, "they got it all wrong, I was laying on the ground because it was comfortable".
[2020-11-06] MEDS: chlordiazePOXIDE 5mg capsule PO SCH ×3 (08:00→19:33)
[2020-11-06] MEDS: famotidine/PF 10 mg/ml inj IV SCH (10:32)
--- NOTE | 2020-11-06 11:00 | NUR ---
Pt PTT 68, no change to heparin gtt
[2020-11-06] MEDS ORDERED: thiamine inj. 100 MG, MVI, adult No.4 with vit. K 10 ML in dextrose 5% water 500ml 489 ML IV SCH ×3 (11:25)
[2020-11-06] MEDS ORDERED: thiamine inj. 100 MG in normal saline 100ml IV soln 99 ML IV ONE (11:30)
--- NOTE | 2020-11-06 11:40 | NUR ---
Pt was incont of stool. Pt cleaned, placed in clean gown and linens were changed and pt repositioned.
[2020-11-06] MEDS: folic acid 1mg/0.2ml inj IV SCH (12:28)
--- NOTE | 2020-11-06 13:29 | NUR ---
Pts caregiver called checking on pt and wanted to let pt know she is taking careof his pets at his house. Caregiver left contact #s for any questions or updates Kasandra Pace: [phone]
[2020-11-06] MEDS ORDERED: glucagon, human recombinant 1mg kit SUBCUT PRN (13:55)
[2020-11-06] MEDS ORDERED: dextrose 50%-water 50ml dispensing syringe IV PRN ×2 (13:55)
[2020-11-06] MEDS ORDERED: dextrose ORAL solution 15 GM/59 ML bottle PO PRN ×2 (13:55)
[2020-11-06] MEDS ORDERED: MESSAGE TO PHARMACY PO ONE (13:55)
[2020-11-06 14:21] LABS: HEMOGLOBIN A1C 5.6 % (4.5-6.2)
[2020-11-06] MEDS ORDERED: etomidate 2mg/ml inj. ONE (15:00)
[2020-11-06] MEDS ORDERED: ASPI-611 PO (16:04)
[2020-11-06] MEDS ORDERED: GABA300C PO (16:10)
--- NOTE | 2020-11-06 18:30 | NUR ---
Patient in room ICU 2042. I have received report from NATHAN Arellano and had the opportunity to ask questions and assume patient care.
[2020-11-06] MEDS: CefTRIAXone/D5W-Rocephin 1gm 50 ML IV SCH (19:40)
[2020-11-06] MEDS: heparin 25,000 UNIT/250ml bag 250 ML IV SCH (19:40)
[2020-11-06] MEDS: insulin Lispro (HumaLOG) vial - multi-dose SQ SCH (20:52)
[2020-11-06] MEDS: insulin glargine (Lantus) pen - multi-dose SQ SCH (20:54)
[2020-11-06] MEDS ORDERED: ipratropium/albuterol 3ml nebule ONE (21:14)
[2020-11-06] MEDS: ipratropium/albuterol 3ml nebule NEB SCH (21:18)
[2020-11-07] VITALS (24 sets, daily range): BP systolic 87–127; BP diastolic 51–97
[2020-11-07] MEDS: chlordiazePOXIDE 5mg capsule PO SCH ×3 (00:29→16:36)
[2020-11-07] MEDS: ipratropium/albuterol 3ml nebule NEB SCH ×7 (01:13→22:56)
[2020-11-07] MEDS: sodium bicarbonate (8.4%) inj. 75 MEQ in dextrose 5% water 500ml 500 ML IV SCH ×3 (01:34→09:57)
[2020-11-07] MEDS: insulin Lispro (HumaLOG) vial - multi-dose SQ SCH ×4 (02:07→19:00)
--- NOTE | 2020-11-07 03:48 | NUR ---
midline dressing continued to ooze after dressing change done earlier in the shift. reinforced with opti lock and abd pad since it will continue to bleed. TPA still going fibrinogen 154, last drawn at 0200. Patient to go to IR today for reassessment of clot on right lower extremity. Sheath site was also oozing, reinforced with gauze, mainly on inner leg as blood was oozing out from that side and getting on gown, dry flow. Patient cleaned up, complete linen change done. Addendum: 11/07/20 at 0355 by Sonya Campbell RN disregard, wrong patient.
--- NOTE | 2020-11-07 06:30 | NUR ---
Patient in room ICU 2042. I have received report from rn and had the opportunity to ask questions and assume patient care.
--- NOTE | 2020-11-07 06:42 | NUR ---
Problems reprioritized. Patient report given, questions answered & plan of care reviewed with NATHAN Arroyo.
[2020-11-07] MEDS: folic acid 1mg/0.2ml inj IV SCH (08:00)
[2020-11-07] MEDS: famotidine/PF 10 mg/ml inj IV SCH (08:09)
[2020-11-07 08:13] LABS: BASOPHILS % (AUTO) 0.4 % (0-1); EOSINOPHILS % (AUTO) 0 % (0-6); HEMATOCRIT 27.8 % (42.0-52.0); HEMOGLOBIN 9.5 g/dl (14.0-17.9); LYMPHOCYTES # (AUTO) 0.5 X10'3 (1.1-4.8); LYMPHOCYTES % (AUTO) 5.1 % (21-51); MEAN CORPUSCULAR HGB CONC 34.2 g/dL (33.0-36.5); MEAN CORPUSCULAR VOLUME 102.4 FL (78-98); MEAN PLATELET VOLUME 7.5 FL (7.4-10.4); MONOCYTES # (AUTO) 0.6 X10'3 (0-0.9); MONOCYTES % (AUTO) 5.3 % (2-12); NEUTROPHILS # (AUTO) 9.6 X10'3 (1.8-7.7); NEUTROPHILS % (AUTO) 89.2 % (42-75); PLATELET COUNT 145 X10'3 (140-440); RED BLOOD COUNT 2.71 X10'6 (4.70-6.10); RED CELL DISTRIBUTION WIDTH 16.1 % (11.5-14.5); WHITE BLOOD COUNT 10.8 X10'3 (4.5-11.0)
[2020-11-07 08:53] LABS: ALANINE AMINOTRANSFERASE 106 U/L (12-78); ALBUMIN 2.1 G/DL (3.4-5.0); ALBUMIN/GLOBULIN RATIO 0.5 (1.1-1.5); ALKALINE PHOSPHATASE 56 IU/L (46-116); ANION GAP 10 (8-16); ASPARTATE AMINO TRANSFERASE 233 U/L (10-37); BILIRUBIN,TOTAL 0.4 MG/DL (0.1-1.0); BLOOD UREA NITROGEN 53 MG/DL (7-18); BUN/CREATININE RATIO 20.8 (5.4-32.0); CALCIUM 7.1 MG/DL (8.5-10.1); CHLORIDE 105 MMOL/L (99-107); CREATININE 2.55 MG/DL (0.60-1.10); GLUCOSE 152 MG/DL (70-104); SODIUM 147 MMOL/L (135-145); TOTAL CARBON DIOXIDE 31.9 MMOL/L (24-32); TOTAL PROTEIN 6.2 G/DL (6.4-8.2); eGFR 25 ML/MIN
[2020-11-07 08:54] LABS: CREATINE KINASE 5987 U/L (39-308)
[2020-11-07 08:59] LABS: POTASSIUM 2.8 MMOL/L (3.5-5.1)
[2020-11-07 09:07] LABS: ANISOCYTOSIS 1+; PLATELET ESTIMATE NORMAL; TOTAL CELLS COUNTED 100
[2020-11-07 09:10] LABS: TOXIC GRANULATION 2+
[2020-11-07] MEDS ORDERED: potassium cl 20mEq in 1/2 NS 1,000 ML IV SCH (11:20)
[2020-11-07] MEDS ORDERED: thiamine 100mg tablet PO SCH (11:22)
[2020-11-07] MEDS ORDERED: MULTIVIT-MIN/FERROUS GLUCONATE 9 MG/15 ML LIQUID PO SCH (11:23)
[2020-11-07] MEDS ORDERED: folic acid 1mg tablet PO SCH (11:25)
[2020-11-07] MEDS ORDERED: Neutra Phos packet PO PRN (11:30)
[2020-11-07] MEDS ORDERED: potassium Cl 40MEQ/1/2NS 520ml 520 ML IV PRN (11:30)
[2020-11-07] MEDS ORDERED: sodium phosphate inj. 15 MMOL in dextrose 5%-water 250 ML IV PRN (11:30)
[2020-11-07] MEDS ORDERED: magnesium 4gm in 100ml NS 100 ML IV PRN (11:30)
[2020-11-07] MEDS ORDERED: potassium Cl 20 mEq SR tablet PO PRN (11:30)
[2020-11-07] MEDS ORDERED: sodium phosphate inj. 30 MMOL in dextrose 5%-water 250 ML IV PRN (11:30)
[2020-11-07] MEDS ORDERED: magnesium Cl slow-release 64mg tablet PO PRN (11:30)
[2020-11-07] MEDS: potassium cl 20mEq in 1/2 NS 1,000 ML IV SCH (12:16)
--- NOTE | 2020-11-07 12:23 | NUR ---
Initial: Pt presented to ER with change in mentation with EtOH hx; admit with sepsis, NEISHA, metabolic acidosis, EtOH dependence, acute rhabdomyolysis, and metabolic encephalopathy per EMR. Pt documented as confused, lethargic, and resistant to care. Pt receiving routine MVM with iron, thiamine, and folic acid given EtOH hx. Pt PO intake not documented, on carb controlled diet. At admit blood sugar was 63, current A1c 5.6%, recommend advancing diet to regular. Last BM 11/07. Will continue to monitor closely. Recommendations: 1) Advance diet to regular given low blood sugar on admit and A1c 5.6% if MD agreeable 2) Continue routine MVM with iron, Thiamine, and folic acid per MD 3) Bowel care per Rx 4) Scaled wt per Rx Addendum: 11/07/20 at [address] Amended: Links added. Addendum: 11/07/20 at [address] I have reviewed and agree with note by Music Composer. Bella Patrick, RADHA
[2020-11-07] MEDS: potassium Cl 20 mEq SR tablet PO PRN ×3 (13:13→21:51)
[2020-11-07] MEDS: MULTIVIT-MIN/FERROUS GLUCONATE 9 MG/15 ML LIQUID PO SCH (15:28)
[2020-11-07] MEDS: folic acid 1mg tablet PO SCH (15:29)
[2020-11-07] MEDS: thiamine 100mg tablet PO SCH (15:29)
[2020-11-07] MEDS ORDERED: acetaminophen 325mg tablet PO PRN (16:45)
[2020-11-07] MEDS: CefTRIAXone/D5W-Rocephin 1gm 50 ML IV SCH (17:04)
[2020-11-07] MEDS ORDERED: heparin 10,000 units/1 ML INJ IV ONE (17:30)
[2020-11-07] MEDS: heparin 25,000 UNIT/250ml bag 250 ML IV SCH ×2 (18:47→20:57)
--- NOTE | 2020-11-07 18:53 | NUR ---
Patient in room ICU 2042. I have received report from NATHAN Arroyo and had the opportunity to ask questions and assume patient care.
[2020-11-07] MEDS: lactobacillus rhamnosus 10,000 MMU CELLS/CAPSULE PO SCH (20:39)
[2020-11-07] MEDS: insulin glargine (Lantus) pen - multi-dose SQ SCH (20:44)
[2020-11-08] VITALS (24 sets, daily range): BP systolic 106–150; BP diastolic 77–104
[2020-11-08] MEDS: chlordiazePOXIDE 5mg capsule PO SCH ×3 (00:34→16:17)
[2020-11-08] MEDS: potassium cl 20mEq in 1/2 NS 1,000 ML IV SCH ×2 (00:40→16:14)
[2020-11-08] MEDS: ipratropium/albuterol 3ml nebule NEB SCH ×6 (02:49→23:27)
--- NOTE | 2020-11-08 06:15 | NUR ---
Patient in room ICU 2042. I have received report from RN and had the opportunity to ask questions and assume patient care.
--- NOTE | 2020-11-08 06:26 | NUR ---
Problems reprioritized. Patient report given, questions answered & plan of care reviewed with NATHAN Arroyo.
[2020-11-08 06:40] LABS: ALBUMIN 1.9 G/DL (3.4-5.0); ANION GAP 10 (8-16); BLOOD UREA NITROGEN 49 MG/DL (7-18); BUN/CREATININE RATIO 25.9 (5.4-32.0); CALCIUM 7.1 MG/DL (8.5-10.1); CHLORIDE 105 MMOL/L (99-107); CREATININE 1.89 MG/DL (0.60-1.10); GLUCOSE 102 MG/DL (70-104); MAGNESIUM 1.8 MG/DL (1.5-2.4); PHOSPHORUS 2.4 MG/DL (2.3-4.5); POTASSIUM 3.7 MMOL/L (3.5-5.1); SODIUM 144 MMOL/L (135-145); TOTAL CARBON DIOXIDE 28.6 MMOL/L (24-32); eGFR 35 ML/MIN
[2020-11-08 06:44] LABS: CREATINE KINASE 3132 U/L (39-308)
[2020-11-08] MEDS: lisinopril 20mg tablet PO SCH (08:00)
[2020-11-08] MEDS: HYDROchlorothiazide 25mg tablet PO SCH (08:00)
[2020-11-08] MEDS: aspirin 81mg tablet.DR PO SCH (08:01)
[2020-11-08] MEDS: MULTIVIT-MIN/FERROUS GLUCONATE 9 MG/15 ML LIQUID PO SCH (08:01)
[2020-11-08] MEDS: levoTHYROXINE 112mcg tablet PO SCH (08:01)
[2020-11-08] MEDS: lactobacillus rhamnosus 10,000 MMU CELLS/CAPSULE PO SCH ×2 (08:01→19:14)
[2020-11-08] MEDS: gabapentin 300mg capsule PO SCH ×2 (08:01→19:14)
[2020-11-08] MEDS: famotidine 20mg tablet PO SCH (08:01)
[2020-11-08] MEDS: folic acid 1mg tablet PO SCH (08:02)
[2020-11-08] MEDS: allopurinol 100mg tablet PO SCH ×2 (08:02→19:14)
[2020-11-08] MEDS: thiamine 100mg tablet PO SCH (08:02)
[2020-11-08] MEDS: levoTHYROXINE 25mcg tablet PO SCH (08:02)
[2020-11-08] MEDS: K and/or MAG REPLACEMENT MC SCH (08:03)
[2020-11-08] MEDS ORDERED: enoxaparin 80mg/0.8ml syringe SUBCUT SCH ×2 (09:34→20:00)
[2020-11-08] MEDS ORDERED: furosemide 20 MG/2 ML vial IV ONE (10:35)
[2020-11-08] MEDS: methylPREDNISolone sod succ/PF 40mg inj. IV SCH ×2 (14:32→19:14)
[2020-11-08] MEDS: CefTRIAXone/D5W-Rocephin 1gm 50 ML IV SCH (18:00)
[2020-11-09] VITALS (18 sets, daily range): BP systolic 98–155; BP diastolic 79–105
[2020-11-09] MEDS: chlordiazePOXIDE 5mg capsule PO SCH ×4 (00:27→16:00)
[2020-11-09] MEDS: ipratropium/albuterol 3ml nebule NEB SCH ×6 (02:58→23:46)
[2020-11-09] MEDS: methylPREDNISolone sod succ/PF 40mg inj. IV SCH ×4 (02:58→19:43)
[2020-11-09] MEDS: potassium cl 20mEq in 1/2 NS 1,000 ML IV SCH (05:09)
--- NOTE | 2020-11-09 05:49 | NUR ---
RN Note -Pt has been somnolent but is arousable and able to state name and birthday. Midnight dose of Librium held. aware.
--- NOTE | 2020-11-09 06:30 | NUR ---
Patient in room ICU 2042. I have received report from [facility] and had the opportunity to ask questions and assume patient care.
[2020-11-09 07:07] LABS: BASOPHILS % (AUTO) 0.2 % (0-1); EOSINOPHILS % (AUTO) 0 % (0-6); HEMATOCRIT 32.3 % (42.0-52.0); HEMOGLOBIN 10.9 g/dl (14.0-17.9); LYMPHOCYTES # (AUTO) 0.4 X10'3 (1.1-4.8); LYMPHOCYTES % (AUTO) 4.3 % (21-51); MEAN CORPUSCULAR HEMOGLOBIN 35.1 PG (27.0-31.0); MEAN CORPUSCULAR HGB CONC 33.6 g/dL (33.0-36.5); MEAN CORPUSCULAR VOLUME 104.4 FL (78-98); MEAN PLATELET VOLUME 7.9 FL (7.4-10.4); MONOCYTES # (AUTO) 0.6 X10'3 (0-0.9); MONOCYTES % (AUTO) 6.3 % (2-12); NEUTROPHILS # (AUTO) 8.4 X10'3 (1.8-7.7); NEUTROPHILS % (AUTO) 89.2 % (42-75); PLATELET COUNT 191 X10'3 (140-440); RED CELL DISTRIBUTION WIDTH 16.3 % (11.5-14.5); WHITE BLOOD COUNT 9.4 X10'3 (4.5-11.0)
[2020-11-09] MEDS: MULTIVIT-MIN/FERROUS GLUCONATE 9 MG/15 ML LIQUID PO SCH (07:44)
[2020-11-09] MEDS: levoTHYROXINE 25mcg tablet PO SCH (07:45)
[2020-11-09] MEDS: lisinopril 20mg tablet PO SCH (07:45)
[2020-11-09] MEDS: aspirin 81mg tablet.DR PO SCH (07:45)
[2020-11-09] MEDS: levoTHYROXINE 112mcg tablet PO SCH (07:45)
[2020-11-09] MEDS: thiamine 100mg tablet PO SCH (07:45)
[2020-11-09] MEDS: folic acid 1mg tablet PO SCH (07:45)
[2020-11-09] MEDS: lactobacillus rhamnosus 10,000 MMU CELLS/CAPSULE PO SCH ×2 (07:45→19:43)
[2020-11-09] MEDS: famotidine 20mg tablet PO SCH (07:45)
[2020-11-09] MEDS: allopurinol 100mg tablet PO SCH ×2 (07:45→19:43)
[2020-11-09] MEDS: gabapentin 300mg capsule PO SCH ×2 (07:45→19:43)
[2020-11-09] MEDS: HYDROchlorothiazide 25mg tablet PO SCH (07:45)
[2020-11-09] MEDS: K and/or MAG REPLACEMENT MC SCH (08:00)
[2020-11-09 08:04] LABS: ALBUMIN 2.1 G/DL (3.4-5.0); ANION GAP 11 (8-16); BLOOD UREA NITROGEN 39 MG/DL (7-18); BUN/CREATININE RATIO 27.5 (5.4-32.0); CHLORIDE 103 MMOL/L (99-107); CREATININE 1.42 MG/DL (0.60-1.10); GLUCOSE 188 MG/DL (70-104); MAGNESIUM 1.8 MG/DL (1.5-2.4); PHOSPHORUS 3.2 MG/DL (2.3-4.5); POTASSIUM 4.4 MMOL/L (3.5-5.1); SODIUM 140 MMOL/L (135-145); TOTAL CARBON DIOXIDE 26.4 MMOL/L (24-32); eGFR 49 ML/MIN
--- NOTE | 2020-11-09 11:36 | NUR ---
Problems reprioritized. Patient report given, questions answered & plan of care reviewed with Hannah Yang
[2020-11-09] MEDS ORDERED: enoxaparin 40mg/0.4ml syringe SUBCUT SCH (12:00)
--- NOTE | 2020-11-09 17:15 | NUR ---
Report to Estefania. PT taken with all belongings to [facility].
--- NOTE | 2020-11-09 17:32 | NUR ---
PT TRANSFERRED TO ROOM 3026A. PT IN AFIB WITH RVR. RATE 120- 140. DR TIRADO PAGED. AWAIT CALL BACK.
--- NOTE | 2020-11-09 18:51 | NUR ---
patient has an order for a cardism drip to run @ 10ml/hr, he has been put on a bedside monitor and he is christina keenly monitored. hi currently in AFIB with RVR; rate 144bpm at the moment. i will continue to observe and monitor him throughout the shift.
[2020-11-09] MEDS: diltiazem-NS 100mg/100ml 100 ML IV SCH (19:42)
[2020-11-09] MEDS: enoxaparin 40mg/0.4ml syringe SUBCUT SCH (19:44)
[2020-11-09] MEDS: CefTRIAXone/D5W-Rocephin 1gm 50 ML IV SCH (20:00)
--- NOTE | 2020-11-09 21:12 | NUR ---
patient has converted to NSR with A rate of 78. he however has occasional PVC's.
[2020-11-10] MEDS: chlordiazePOXIDE 5mg capsule PO SCH ×4 (00:09→23:41)
[2020-11-10 02:00] VITALS: BP 111/74
[2020-11-10] MEDS: methylPREDNISolone sod succ/PF 40mg inj. IV SCH ×2 (02:04→08:57)
[2020-11-10] MEDS: ipratropium/albuterol 3ml nebule NEB SCH ×6 (04:02→23:39)
[2020-11-10] MEDS: diltiazem-NS 100mg/100ml 100 ML IV SCH ×2 (04:24→21:54)
--- NOTE | 2020-11-10 06:07 | NUR ---
report given to NATHAN Mac.
[2020-11-10 07:32] LABS: BASOPHILS % (AUTO) 0 % (0-1); EOSINOPHILS % (AUTO) 0 % (0-6); HEMATOCRIT 31.4 % (42.0-52.0); HEMOGLOBIN 10.6 g/dl (14.0-17.9); LYMPHOCYTES # (AUTO) 0.5 X10'3 (1.1-4.8); LYMPHOCYTES % (AUTO) 4.5 % (21-51); MEAN CORPUSCULAR HEMOGLOBIN 34.7 PG (27.0-31.0); MEAN CORPUSCULAR HGB CONC 33.8 g/dL (33.0-36.5); MEAN CORPUSCULAR VOLUME 102.7 FL (78-98); MONOCYTES # (AUTO) 1.1 X10'3 (0-0.9); MONOCYTES % (AUTO) 9.3 % (2-12); NEUTROPHILS % (AUTO) 86.2 % (42-75); PLATELET COUNT 329 X10'3 (140-440); RED BLOOD COUNT 3.06 X10'6 (4.70-6.10); RED CELL DISTRIBUTION WIDTH 16.4 % (11.5-14.5); WHITE BLOOD COUNT 11.5 X10'3 (4.5-11.0)
[2020-11-10] MEDS: K and/or MAG REPLACEMENT MC SCH (08:00)
[2020-11-10 08:40] LABS: ALBUMIN 2.2 G/DL (3.4-5.0); ANION GAP 10 (8-16); BLOOD UREA NITROGEN 43 MG/DL (7-18); BUN/CREATININE RATIO 31.4 (5.4-32.0); CALCIUM 8.8 MG/DL (8.5-10.1); CHLORIDE 100 MMOL/L (99-107); CREATININE 1.37 MG/DL (0.60-1.10); GLUCOSE 143 MG/DL (70-104); MAGNESIUM 1.9 MG/DL (1.5-2.4); PHOSPHORUS 2.8 MG/DL (2.3-4.5); POTASSIUM 4.5 MMOL/L (3.5-5.1); SODIUM 139 MMOL/L (135-145); TOTAL CARBON DIOXIDE 29.2 MMOL/L (24-32); eGFR 51 ML/MIN
[2020-11-10] MEDS: MULTIVIT-MIN/FERROUS GLUCONATE 9 MG/15 ML LIQUID PO SCH (08:54)
[2020-11-10] MEDS: HYDROchlorothiazide 25mg tablet PO SCH (08:57)
[2020-11-10] MEDS: enoxaparin 40mg/0.4ml syringe SUBCUT SCH ×2 (09:00→21:22)
[2020-11-10] MEDS: thiamine 100mg tablet PO SCH (09:05)
[2020-11-10] MEDS: folic acid 1mg tablet PO SCH (09:05)
[2020-11-10] MEDS: allopurinol 100mg tablet PO SCH ×2 (09:05→21:21)
[2020-11-10] MEDS: lisinopril 20mg tablet PO SCH (09:06)
[2020-11-10] MEDS: famotidine 20mg tablet PO SCH (09:06)
[2020-11-10] MEDS: lactobacillus rhamnosus 10,000 MMU CELLS/CAPSULE PO SCH ×2 (09:07→21:21)
[2020-11-10] MEDS: aspirin 81mg tablet.DR PO SCH (09:07)
[2020-11-10] MEDS: gabapentin 300mg capsule PO SCH ×2 (09:07→21:21)
[2020-11-10] MEDS: CefTRIAXone/D5W-Rocephin 1gm 50 ML IV SCH (09:14)
[2020-11-10] MEDS: levoTHYROXINE 25mcg tablet PO SCH (09:14)
[2020-11-10] MEDS: levoTHYROXINE 112mcg tablet PO SCH (09:16)
[2020-11-10] MEDS ORDERED: methylPREDNISolone sod succ/PF 40mg inj. IV SCH (10:45)
--- NOTE | 2020-11-10 11:24 | NUR ---
Reassessment: Per MD note rhabdomyolysis is better, NEISHA resolving, and metabolic acidosis with respiratory alkalosis resolved. Patient's diet has been advanced to regular and PO intake appears to be improving, initially with average 50% PO intake up to 75-100% PO intake 11/09. Pending documentation of PO intake for today. Noted pt with a low Darryn of 12, no edema or wounds per physical assessment. LBM 11/08, currently not receiving bowel care. D/w dietary to send prune juice with next meal to assist with bowel regularity. Will continue to follow and monitor need for further nutrition intervention. Recommendations: 1) Continue regular diet given low blood sugar on admit and A1c 5.6% 2) Continue routine MVM with iron, Thiamine, and folic acid for EtOH hx 3) Routine bowel care 4) Scaled wt per rx Addendum: 11/10/20 at [address] Amended: Links added.
[2020-11-10 13:59] VITALS: BP 95/68
[2020-11-10 16:37] VITALS: BP 101/73
[2020-11-10 18:00] VITALS: BP 110/80
--- NOTE | 2020-11-10 18:57 | NUR ---
Patient in room PCU 3026. I have received report from Estefania EVANS and had the opportunity to ask questions and assume patient care.
[2020-11-10 20:00] VITALS: BP 114/82
[2020-11-10 22:00] VITALS: BP 119/86
[2020-11-11] VITALS (13 sets, daily range): BP systolic 85–109; BP diastolic 60–85
[2020-11-11] MEDS: ipratropium/albuterol 3ml nebule NEB SCH ×6 (03:07→23:19)
[2020-11-11 06:15] LABS: BASOPHILS % (AUTO) 0.1 % (0-1); EOSINOPHILS % (AUTO) 0 % (0-6); HEMATOCRIT 33.9 % (42.0-52.0); HEMOGLOBIN 11.4 g/dl (14.0-17.9); LYMPHOCYTES # (AUTO) 0.6 X10'3 (1.1-4.8); LYMPHOCYTES % (AUTO) 4.6 % (21-51); MEAN CORPUSCULAR HEMOGLOBIN 34.4 PG (27.0-31.0); MEAN CORPUSCULAR HGB CONC 33.5 g/dL (33.0-36.5); MEAN CORPUSCULAR VOLUME 102.6 FL (78-98); MEAN PLATELET VOLUME 7.6 FL (7.4-10.4); MONOCYTES # (AUTO) 0.6 X10'3 (0-0.9); MONOCYTES % (AUTO) 4.9 % (2-12); NEUTROPHILS # (AUTO) 11.9 X10'3 (1.8-7.7); NEUTROPHILS % (AUTO) 90.4 % (42-75); PLATELET COUNT 489 X10'3 (140-440); RED BLOOD COUNT 3.31 X10'6 (4.70-6.10); RED CELL DISTRIBUTION WIDTH 16.4 % (11.5-14.5); WHITE BLOOD COUNT 13.1 X10'3 (4.5-11.0)
[2020-11-11 06:29] LABS: ALBUMIN 2.3 G/DL (3.4-5.0); ANION GAP 8 (8-16); BLOOD UREA NITROGEN 64 MG/DL (7-18); BUN/CREATININE RATIO 22.9 (5.4-32.0); CALCIUM 9.1 MG/DL (8.5-10.1); CHLORIDE 97 MMOL/L (99-107); CREATININE 2.79 MG/DL (0.60-1.10); GLUCOSE 119 MG/DL (70-104); MAGNESIUM 2.1 MG/DL (1.5-2.4); PHOSPHORUS 4.6 MG/DL (2.3-4.5); POTASSIUM 4.5 MMOL/L (3.5-5.1); SODIUM 138 MMOL/L (135-145); TOTAL CARBON DIOXIDE 32.7 MMOL/L (24-32); eGFR 23 ML/MIN
--- NOTE | 2020-11-11 07:02 | NUR ---
Problems reprioritized. Patient report given, questions answered & plan of care reviewed with Jadyn EVANS.
--- NOTE | 2020-11-11 07:09 | NUR ---
Patient in room PCU 3026. I have received report from Kady EVANS and had the opportunity to ask questions and assume patient care.
[2020-11-11] MEDS ORDERED: levoFLOXACIN-Levaquin 500mg/D5 100 ML IV SCH (08:00)
[2020-11-11] MEDS ORDERED: predniSONE 20 mg tablet PO SCH (08:00)
--- NOTE | 2020-11-11 08:00 | NUR ---
Paged Dr. Koch regarding O2 and Cardizem. PAGER ID: [phone] MESSAGE: [id number] Romeo Anne. On 5L nasal cannula sat at 90. No O2 ordered or parameters. Lethargic. Also on Cardizem drip, in sinus rhythm since Thursday. [facility] Crystal [id number]
[2020-11-11 08:43] LABS: ABG BASE EXCESS 7.2 mmol/L (-2.0-2.0); ABG HCO3 30.6 mmol/L (22.0-26.0); ABG OXYGEN SATURATION 89.2 % (94-97); ABG PCO2 (T) 38.8 mmHg (35.0-48.0); ABG PO2 (T) 53.9 mmHg (75.0-100.0); ALLEN'S TEST POSITIVE; FCOHb 0.7 % (0.0-3.9); FLOW 4 L/min; FMetHb 0.1 % (0.0-1.5); FO2Hb 88.5 % (94-97); TOTAL HEMOGLOBIN 12.6 G/dl (14.0-18.0)
[2020-11-11] MEDS: MULTIVIT-MIN/FERROUS GLUCONATE 9 MG/15 ML LIQUID PO SCH (09:05)
[2020-11-11] MEDS: enoxaparin 40mg/0.4ml syringe SUBCUT SCH (09:05)
[2020-11-11] MEDS: lactobacillus rhamnosus 10,000 MMU CELLS/CAPSULE PO SCH ×2 (09:06→20:01)
[2020-11-11] MEDS: aspirin 81mg tablet.DR PO SCH (09:07)
[2020-11-11] MEDS: folic acid 1mg tablet PO SCH (09:07)
[2020-11-11] MEDS: thiamine 100mg tablet PO SCH (09:07)
[2020-11-11] MEDS: allopurinol 100mg tablet PO SCH ×2 (09:08→20:01)
[2020-11-11] MEDS: famotidine 20mg tablet PO SCH (09:08)
[2020-11-11] MEDS: chlordiazePOXIDE 5mg capsule PO SCH ×4 (09:08→20:01)
[2020-11-11] MEDS: normal saline 1000ml 1,000 ML IV SCH (10:09)
--- NOTE | 2020-11-11 18:10 | NUR ---
Patient in room PCU 3026. I have received report from May EVANS and had the opportunity to ask questions and assume patient care.
--- NOTE | 2020-11-11 18:44 | NUR ---
Problems reprioritized. Patient report given, questions answered & plan of care reviewed with Giuseppe EVANS. Patient stable at transfer of care.
--- NOTE | 2020-11-11 19:10 | NUR ---
Patient in room PCU 3026. I have received report from Jadyn EVANS and had the opportunity to ask questions and assume patient care.
--- NOTE | 2020-11-11 20:22 | NUR ---
Called Dr. Cannon to inform him patient converted back to Afib sustaining in 120's, and that patient had cardizem drip 5mg/hr discontinued this am. He ordered to restart cardizem drip at previous rate.
[2020-11-11] MEDS ORDERED: diltiazem-NS 100mg/100ml 100 ML IV SCH (20:25)
--- NOTE | 2020-11-11 20:26 | NUR ---
Called pharmacy to request cardizem drip that Kassandra just restarted.
--- NOTE | 2020-11-11 23:24 | NUR ---
Dr. Cannon came to RN station. I reported patient still in Afib sustaining in 120's, more wet breath sounds on NS 100 ml/hr. Dr. Cannon examined patient, said to decrease NS to 50ml/hr, ordered digoxin 0.25 Q4 x 2 times only due to low bp and new onset afib. Dr. Cannon also ordered echocardiogram for 4/12 am.
--- NOTE | 2020-11-11 23:25 | NUR ---
Low output Told Dr. Cannon while at bedside that patient has low urine output, no orders given. Will continue to monitor patient.
[2020-11-11] MEDS: digoxin 250mcg/ml 2ml ampule IV SCH (23:39)
[2020-11-12] VITALS (17 sets, daily range): BP systolic 60–126; BP diastolic 34–90
--- NOTE | 2020-11-12 01:42 | NUR ---
Called Dr Cannon to inform him RT performed naso tracheal suctioning and got 600 ml green/brown fluid. Dr. Cannon ordered keep NPO and suction as needed.
[2020-11-12] MEDS ORDERED: bisacodyl 10mg suppository rectal RC STA (01:45)
--- NOTE | 2020-11-12 01:48 | NUR ---
Called Dr. Cannon to request suppository, patient has not had bm since 11/08/20. Dr. Cannon ok'd dulcolax suppository.
[2020-11-12] MEDS: normal saline 1000ml 1,000 ML IV SCH ×2 (02:12→22:25)
[2020-11-12] MEDS: ipratropium/albuterol 3ml nebule NEB SCH ×6 (02:39→23:04)
[2020-11-12] MEDS: digoxin 250mcg/ml 2ml ampule IV SCH (04:01)
--- NOTE | 2020-11-12 05:20 | NUR ---
Dr. Cannon Called and requested NG tube for decompression. Dr. Cannon ok'd NG and ordered chest xray
--- NOTE | 2020-11-12 05:25 | NUR ---
[id number] Romeo Anne. Need chest xray please per Dr. Cannon
--- NOTE | 2020-11-12 06:32 | NUR ---
700 out NG tube, Dr. Cannon saw patient, said he may need to go back to ICU. Chest xray and abdominal series completed.
--- NOTE | 2020-11-12 06:33 | NUR ---
Problems reprioritized. Patient report given, questions answered & plan of care reviewed with Taylor EVANS. Informed Taylor that I paused NS @50 due to possible fluid overload, she stated she would follow up with MD.
--- NOTE | 2020-11-12 06:36 | NUR ---
Orientee documentation: I have reviewed and agree with all medications, interventions, assessments performed and documented by Kira EVANS.
--- NOTE | 2020-11-12 06:36 | NUR ---
Problems reprioritized. Patient report given, questions answered & plan of care reviewed with Taylor EVANS.
--- NOTE | 2020-11-12 06:41 | NUR ---
Patient in room PCU 3026. I have received report from Annie EVANS and had the opportunity to ask questions and assume patient care.
--- NOTE | 2020-11-12 07:08 | NUR ---
PAGER ID: [phone] MESSAGE: Assuming care of pt Romeo Anne [id number]. Dr Fernandez from [facility] called and suspects a bowel obstruction based on KUB and is recommends a CT. Taylor Pate
[2020-11-12] MEDS: levoTHYROXINE 75mcg tablet PO SCH (07:30)
[2020-11-12] MEDS: allopurinol 100mg tablet PO SCH ×2 (08:00→22:25)
[2020-11-12] MEDS: famotidine 20mg tablet PO SCH (08:00)
[2020-11-12] MEDS: chlordiazePOXIDE 5mg capsule PO SCH ×2 (08:00→22:25)
[2020-11-12] MEDS: thiamine 100mg tablet PO SCH (08:00)
[2020-11-12] MEDS: aspirin 81mg tablet.DR PO SCH (08:00)
[2020-11-12] MEDS: lactobacillus rhamnosus 10,000 MMU CELLS/CAPSULE PO SCH ×2 (08:00→22:24)
[2020-11-12] MEDS ORDERED: enoxaparin 30mg/0.3ml syringe SUBCUT SCH (08:00)
[2020-11-12] MEDS: lisinopril 10 MG tablet PO SCH (08:00)
[2020-11-12] MEDS: folic acid 1mg tablet PO SCH (08:00)
[2020-11-12] MEDS: MULTIVIT-MIN/FERROUS GLUCONATE 9 MG/15 ML LIQUID PO SCH (08:00)
--- NOTE | 2020-11-12 08:12 | NUR ---
Problems reprioritized. Patient report given, questions answered & plan of care reviewed with Ryan EVANS.
[2020-11-12 08:30] LABS: ABG BASE EXCESS 6.5 mmol/L (-2.0-2.0); ABG OXYGEN SATURATION 90.2 % (94-97); ABG PCO2 (T) 101.9 mmHg (35.0-48.0); ABG PO2 (T) 71.5 mmHg (75.0-100.0); ALLEN'S TEST Modified; FCOHb 0.3 % (0.0-3.9); FLOW 15 L/min; FMetHb 0.7 % (0.0-1.5); FO2Hb 89.3 % (94-97); TOTAL HEMOGLOBIN 12.6 G/dl (14.0-18.0)
[2020-11-12] MEDS ORDERED: NORepinephrine 8mg/ 250ml NS 250 ML IV ONE (08:44)
[2020-11-12] MEDS ORDERED: propofol 1000mg/100ml bottle 100 ML IV ONE (09:09)
[2020-11-12] MEDS: diatr meglu/diatrizoate 30ml oral sol.-(3 dose) bottle PO SCH ×3 (09:38→16:40)
[2020-11-12 09:40] LABS: ABG BASE EXCESS 2.1 mmol/L (-2.0-2.0); ABG HCO3 28.9 mmol/L (22.0-26.0); ABG OXYGEN SATURATION 98.2 % (94-97); ABG PCO2 (T) 55.4 mmHg (35.0-48.0); ABG PO2 (T) 127.3 mmHg (75.0-100.0); ALLEN'S TEST Modified; FCOHb 0.3 % (0.0-3.9); FMetHb 0.6 % (0.0-1.5); FO2Hb 97.3 % (94-97); PEEP 8 cm H2O; RESPIRATORY RATE 16 b/min; TIDAL VOLUME 500 mL; TOTAL HEMOGLOBIN 12.3 G/dl (14.0-18.0)
[2020-11-12] MEDS: methylPREDNISolone sod succ/PF 40mg inj. IV SCH ×3 (10:01→22:24)
[2020-11-12] MEDS: piperacillin/tazo 3.375gm/50ml 50 ML IV SCH ×2 (10:02→18:41)
[2020-11-12] MEDS: propofol 1000mg/100ml bottle 100 ML IV SCH ×2 (10:10→22:26)
[2020-11-12] MEDS ORDERED: diltiazem-NS 100mg/100ml 100 ML IV SCH (10:10)
[2020-11-12] MEDS: NORepinephrine 8mg/ 250ml NS 250 ML IV SCH (10:10)
[2020-11-12 10:51] LABS: MAGNESIUM 2.1 MG/DL (1.5-2.4); PHOSPHORUS 8.1 MG/DL (2.3-4.5); POTASSIUM 5.5 MMOL/L (3.5-5.1)
--- NOTE | 2020-11-12 11:37 | NUR ---
F/u 11/12: Pt intubated s/p aspiration event w/ decreased renal function r/t third spacing of fluid per teacher selection specialist at rounds. Pt NPO at this time w/ NG to suction -1450ml out since yesterday and 1L suctioned during intubation process per MD. KUB concerning for possible bowel obstruction and pending CT to determine if ischemic bowel per teacher selection specialist. Pt to remain NPO pending further tests; IF ischemic bowel may benefit from PN to meet needs on vent. Will continue to monitor for additional protein/kcal needs on vent. Recommendations: 1) NPO per MD; IF GI intact and no ischemic bowel consider EN; IF GI concerns pending further imaging consider PN to meet needs 2) Continue routine MVM with iron, Thiamine, and folic acid for EtOH hx 3) bowel care per rx 4) weekly wts Addendum: 11/12/20 at [address] Amended: Links added.
--- NOTE | 2020-11-12 17:10 | NUR ---
Back from CT, art line not functioning, discontinued.
--- NOTE | 2020-11-12 18:30 | NUR ---
Patient in room CICU 2013. I have received report from Ryan EVANS and had the opportunity to ask questions and assume patient care.
--- NOTE | 2020-11-12 18:46 | NUR ---
Problems reprioritized. Patient report given, questions answered & plan of care reviewed with NATHAN Olson .
[2020-11-12 21:00] LABS: BASOPHILS % (AUTO) 0.1 % (0-1); EOSINOPHILS % (AUTO) 0 % (0-6)
[2020-11-12 21:01] LABS: HEMATOCRIT 31.8 % (42.0-52.0); HEMOGLOBIN 10.5 g/dl (14.0-17.9); LYMPHOCYTES # (AUTO) 0.7 X10'3 (1.1-4.8); MEAN CORPUSCULAR HEMOGLOBIN 33.8 PG (27.0-31.0); MEAN CORPUSCULAR HGB CONC 32.9 g/dL (33.0-36.5); MEAN CORPUSCULAR VOLUME 102.5 FL (78-98); MEAN PLATELET VOLUME 7.8 FL (7.4-10.4); MONOCYTES # (AUTO) 0.4 X10'3 (0-0.9); MONOCYTES % (AUTO) 1.7 % (2-12); NEUTROPHILS % (AUTO) 95.2 % (42-75); PLATELET COUNT 639 X10'3 (140-440); RED CELL DISTRIBUTION WIDTH 16.1 % (11.5-14.5); WHITE BLOOD COUNT 23.2 X10'3 (4.5-11.0)
[2020-11-12 21:08] LABS: ALANINE AMINOTRANSFERASE 51 U/L (12-78); ALBUMIN 1.8 G/DL (3.4-5.0); ALBUMIN/GLOBULIN RATIO 0.4 (1.1-1.5); ALKALINE PHOSPHATASE 67 IU/L (46-116); ANION GAP 13 (8-16); ASPARTATE AMINO TRANSFERASE 38 U/L (10-37); BILIRUBIN,TOTAL 0.4 MG/DL (0.1-1.0); BLOOD UREA NITROGEN 94 MG/DL (7-18); BUN/CREATININE RATIO 21.8 (5.4-32.0); CALCIUM 7.5 MG/DL (8.5-10.1); CHLORIDE 98 MMOL/L (99-107); CREATININE 4.31 MG/DL (0.60-1.10); GLUCOSE 160 MG/DL (70-104); MAGNESIUM 2.1 MG/DL (1.5-2.4); PHOSPHORUS 6.8 MG/DL (2.3-4.5); SODIUM 138 MMOL/L (135-145); TOTAL CARBON DIOXIDE 27.3 MMOL/L (24-32); TOTAL PROTEIN 6.5 G/DL (6.4-8.2); eGFR 14 ML/MIN
[2020-11-12] MEDS: diltiazem-NS 100mg/100ml 100 ML IV SCH (22:26)
[2020-11-12 23:13] LABS: PLATELET ESTIMATE INCREASED; TOTAL CELLS COUNTED 100
[2020-11-12 23:14] LABS: ANISOCYTOSIS 1+; TOXIC GRANULATION 2+
[2020-11-12 23:15] LABS: STOMATOCYTES 1+
[2020-11-13] VITALS (23 sets, daily range): BP systolic 92–138; BP diastolic 61–90
[2020-11-13] MEDS: piperacillin/tazo 3.375gm/50ml 50 ML IV SCH ×3 (01:15→20:29)
[2020-11-13] MEDS: methylPREDNISolone sod succ/PF 40mg inj. IV SCH ×4 (02:38→20:28)
[2020-11-13] MEDS: ipratropium/albuterol 3ml nebule NEB SCH ×6 (02:57→23:18)
[2020-11-13 03:09] LABS: BASOPHILS % (AUTO) 0 % (0-1); EOSINOPHILS % (AUTO) 0.1 % (0-6); HEMATOCRIT 30.3 % (42.0-52.0); LYMPHOCYTES # (AUTO) 0.6 X10'3 (1.1-4.8); LYMPHOCYTES % (AUTO) 2.9 % (21-51); MEAN CORPUSCULAR HEMOGLOBIN 33.8 PG (27.0-31.0); MEAN CORPUSCULAR HGB CONC 33.1 g/dL (33.0-36.5); MEAN CORPUSCULAR VOLUME 102.3 FL (78-98); MEAN PLATELET VOLUME 7.3 FL (7.4-10.4); MONOCYTES # (AUTO) 0.4 X10'3 (0-0.9); MONOCYTES % (AUTO) 1.7 % (2-12); NEUTROPHILS # (AUTO) 20.1 X10'3 (1.8-7.7); NEUTROPHILS % (AUTO) 95.3 % (42-75); PLATELET COUNT 538 X10'3 (140-440); RED BLOOD COUNT 2.96 X10'6 (4.70-6.10); RED CELL DISTRIBUTION WIDTH 16.4 % (11.5-14.5); WHITE BLOOD COUNT 21.1 X10'3 (4.5-11.0)
[2020-11-13 03:36] LABS: ALBUMIN 1.8 G/DL (3.4-5.0); ANION GAP 14 (8-16); BLOOD UREA NITROGEN 97 MG/DL (7-18); BUN/CREATININE RATIO 24.1 (5.4-32.0); CALCIUM 7.1 MG/DL (8.5-10.1); CHLORIDE 98 MMOL/L (99-107); CREATININE 4.03 MG/DL (0.60-1.10); GLUCOSE 159 MG/DL (70-104); POTASSIUM 4.7 MMOL/L (3.5-5.1); SODIUM 139 MMOL/L (135-145); TOTAL CARBON DIOXIDE 26.7 MMOL/L (24-32); TRIGLYCERIDES 172 MG/DL (20-135); eGFR 15 ML/MIN
[2020-11-13 04:23] LABS: ABG BASE EXCESS 2.1 mmol/L (-2.0-2.0); ABG HCO3 25.6 mmol/L (22.0-26.0); ABG OXYGEN SATURATION 94.4 % (94-97); ABG PCO2 (T) 35.4 mmHg (35.0-48.0); ABG PO2 (T) 71.6 mmHg (75.0-100.0); ALLEN'S TEST Modified; FCOHb 0.3 % (0.0-3.9); FMetHb 0.2 % (0.0-1.5); FO2Hb 93.9 % (94-97); PATIENT TEMPERATURE 36.7; PEEP 8 cm H2O; RESPIRATORY RATE 16 b/min; TIDAL VOLUME 500 mL; TOTAL HEMOGLOBIN 10.7 G/dl (14.0-18.0)
[2020-11-13] MEDS: propofol 1000mg/100ml bottle 100 ML IV SCH ×3 (05:29→21:43)
[2020-11-13] MEDS: NORepinephrine 8mg/ 250ml NS 250 ML IV SCH ×2 (05:30→19:58)
--- NOTE | 2020-11-13 06:15 | NUR ---
Problems reprioritized. Patient report given, questions answered & plan of care reviewed with Ryan EVANS.
[2020-11-13] MEDS ORDERED: midodrine 5mg tablet NG SCH (08:00)
[2020-11-13] MEDS: lisinopril 10 MG tablet PO SCH (08:00)
[2020-11-13] MEDS: levoTHYROXINE 75mcg tablet PO SCH (08:25)
[2020-11-13] MEDS: aspirin 81mg tablet.DR PO SCH (08:25)
[2020-11-13] MEDS: famotidine 20mg tablet PO SCH (08:25)
[2020-11-13] MEDS: MULTIVIT-MIN/FERROUS GLUCONATE 9 MG/15 ML LIQUID PO SCH (08:25)
[2020-11-13] MEDS: chlordiazePOXIDE 5mg capsule PO SCH ×2 (08:25→20:29)
[2020-11-13] MEDS: thiamine 100mg tablet PO SCH (08:25)
[2020-11-13] MEDS: allopurinol 100mg tablet PO SCH ×2 (08:25→20:29)
[2020-11-13] MEDS: folic acid 1mg tablet PO SCH (08:25)
[2020-11-13] MEDS: lactobacillus rhamnosus 10,000 MMU CELLS/CAPSULE PO SCH ×2 (08:25→20:29)
[2020-11-13] MEDS: heparin, porcine 5000 units/ml vial SQ SCH ×2 (08:26→16:36)
--- NOTE | 2020-11-13 12:52 | NUR ---
TPN consult: Per MD, pt CT showing small bowel obstruction mid ileum; NG output 4L in total. To start TPN today without electrolytes per water regulator and valve repairer request, see recs below using initial scaled wt 78.9kg making BMI 27. Pt +8.6kg since admit, likely error given current fluid balance per I&O. Pt receiving propofol at 9.468 ml/hr (227 kcal) per EMR. Last BM 11/08 d/t small bowel obstruction. Will continue to monitor for PN tolerance. Recommendations: 1) Continuous TPN using 2:1 Clinimix Non-E 5/20 1L bag at 85 ml/hr. 2) Separate Intralipid infusions using 90ml 20% Intralipids at 7.5 ml/hr to run for 12 hours daily. In total to provide 2040 ml volume, 102 g AA, 408 g DEX (3.59 mg/kg/min) and 1975 total kcal. Pt receiving propofol at 9.468 ml/hr (227 kcal) 2202 total kcal. Initiate at 30 ml/hr and advance as tolerated q 12 to goal. 3) Prealbumin/TG q Thursday/; daily wts 4) Continue routine MVM with iron, Thiamine, and folic acid for EtOH hx 5) Monitor for TPN tolerance Addendum: 11/13/20 at [address] Amended: Links added. Addendum: 11/13/20 at [address] RADHA knott w/ above psychology intern note.
[2020-11-13] MEDS ORDERED: magnesium Cl slow-release 64mg tablet PO PRN (14:50)
[2020-11-13] MEDS ORDERED: magnesium 4gm in 100ml NS 100 ML IV PRN (14:50)
[2020-11-13] MEDS ORDERED: magnesium 2GM in 50ml NS 50 ML IV PRN (14:50)
[2020-11-13] MEDS: diltiazem-NS 100mg/100ml 100 ML IV SCH (16:05)
[2020-11-13] MEDS: normal saline 1000ml 1,000 ML IV SCH ×2 (20:28→21:00)
[2020-11-13] MEDS: fat emulsion 20% inj. 100 ML IV SCH (20:30)
[2020-11-13] MEDS: diatr meglu/diatrizoate 30ml oral sol.-(3 dose) bottle PO SCH (20:31)
[2020-11-13] MEDS ORDERED: [UNRECOGNIZED DRUG - OTHER] IV SCH (21:00)
[2020-11-13] MEDS ORDERED: MVI, adult No.4 with vit. K 10 ML in dextrose 5% water 500ml 500 ML IV ONE ×2 (21:00)
[2020-11-13] MEDS ORDERED: SELENIUM IV SCH (21:00)
[2020-11-13] MEDS ORDERED: COPPER IV SCH (21:00)
[2020-11-13] MEDS ORDERED: MANGANESE IV SCH (21:00)
[2020-11-13] MEDS ORDERED: ZINC IV SCH (21:00)
[2020-11-13] MEDS ORDERED: Dextrose 10%-water IV solution 1,000 ML IV PRN (21:00)
[2020-11-13] MEDS ORDERED: CHROMIC CHLORIDE IV SCH (21:00)
[2020-11-14] VITALS (22 sets, daily range): BP systolic 101–135; BP diastolic 65–100
[2020-11-14] MEDS: heparin, porcine 5000 units/ml vial SQ SCH ×3 (00:07→16:13)
[2020-11-14] MEDS: methylPREDNISolone sod succ/PF 40mg inj. IV SCH ×4 (02:24→20:17)
[2020-11-14 02:57] LABS: BASOPHILS % (AUTO) 0.1 % (0-1); EOSINOPHILS % (AUTO) 0 % (0-6); HEMOGLOBIN 9.2 g/dl (14.0-17.9); LYMPHOCYTES # (AUTO) 0.4 X10'3 (1.1-4.8); LYMPHOCYTES % (AUTO) 2.3 % (21-51); MEAN CORPUSCULAR HEMOGLOBIN 33.8 PG (27.0-31.0); MEAN CORPUSCULAR HGB CONC 32.9 g/dL (33.0-36.5); MEAN CORPUSCULAR VOLUME 102.7 FL (78-98); MEAN PLATELET VOLUME 7.5 FL (7.4-10.4); MONOCYTES # (AUTO) 0.3 X10'3 (0-0.9); MONOCYTES % (AUTO) 1.9 % (2-12); NEUTROPHILS % (AUTO) 95.7 % (42-75); PLATELET COUNT 412 X10'3 (140-440); RED BLOOD COUNT 2.72 X10'6 (4.70-6.10); RED CELL DISTRIBUTION WIDTH 16.1 % (11.5-14.5); WHITE BLOOD COUNT 15.7 X10'3 (4.5-11.0)
[2020-11-14] MEDS: ipratropium/albuterol 3ml nebule NEB SCH ×6 (03:01→22:56)
[2020-11-14 03:12] LABS: ALBUMIN 1.7 G/DL (3.4-5.0); ANION GAP 11 (8-16); BLOOD UREA NITROGEN 87 MG/DL (7-18); BUN/CREATININE RATIO 28.2 (5.4-32.0); CALCIUM 6.6 MG/DL (8.5-10.1); CHLORIDE 100 MMOL/L (99-107); CREATININE 3.08 MG/DL (0.60-1.10); GLUCOSE 274 MG/DL (70-104); POTASSIUM 3.4 MMOL/L (3.5-5.1); PREALBUMIN 17.4 MG/DL (19-36); SODIUM 137 MMOL/L (135-145); eGFR 20 ML/MIN
[2020-11-14] MEDS: propofol 1000mg/100ml bottle 100 ML IV SCH ×3 (03:17→18:54)
[2020-11-14] MEDS ORDERED: potassium Cl 20mEq/100mL bag 100 ML IV PRN (03:50)
[2020-11-14] MEDS ORDERED: glucagon, human recombinant 1mg kit SUBCUT PRN (04:10)
[2020-11-14] MEDS ORDERED: insulin Lispro (HumaLOG) vial - multi-dose SQ SCH (04:10)
[2020-11-14] MEDS ORDERED: MESSAGE TO PHARMACY PO ONE (04:10)
[2020-11-14] MEDS ORDERED: dextrose 50%-water 50ml dispensing syringe IV PRN ×2 (04:10)
[2020-11-14] MEDS ORDERED: dextrose ORAL solution 15 GM/59 ML bottle PO PRN ×2 (04:10)
[2020-11-14 04:20] LABS: ABG HCO3 23.8 mmol/L (22.0-26.0); ABG OXYGEN SATURATION 95.7 % (94-97); ABG PCO2 (T) 31.3 mmHg (35.0-48.0); ABG PO2 (T) 80.7 mmHg (75.0-100.0); ALLEN'S TEST POSITIVE; FCOHb 0.2 % (0.0-3.9); FMetHb 0.4 % (0.0-1.5); FO2Hb 95.1 % (94-97); PATIENT TEMPERATURE 36.9; PEEP 8 cm H2O; RESPIRATORY RATE 16 b/min; TIDAL VOLUME 500 mL; TOTAL HEMOGLOBIN 10.2 G/dl (14.0-18.0)
[2020-11-14] MEDS: insulin regular, human U-100 3ml vial - multi-dose SQ SCH ×3 (05:21→14:31)
--- NOTE | 2020-11-14 06:46 | NUR ---
Problems reprioritized. Patient report given, questions answered & plan of care reviewed with NATALY EVANS.
[2020-11-14] MEDS: normal saline 1000ml 1,000 ML IV SCH ×2 (07:00→17:00)
[2020-11-14] MEDS: diatr meglu/diatrizoate 30ml oral sol.-(3 dose) bottle PO SCH ×2 (07:59→20:18)
[2020-11-14] MEDS: piperacillin/tazo 3.375gm/50ml 50 ML IV SCH ×2 (08:03→20:17)
[2020-11-14] MEDS: chlordiazePOXIDE 5mg capsule PO SCH ×2 (08:06→20:17)
[2020-11-14] MEDS: thiamine 100mg tablet PO SCH (08:06)
[2020-11-14] MEDS: levoTHYROXINE 75mcg tablet PO SCH (08:06)
[2020-11-14] MEDS: MULTIVIT-MIN/FERROUS GLUCONATE 9 MG/15 ML LIQUID PO SCH (08:06)
[2020-11-14] MEDS: lisinopril 10 MG tablet PO SCH (08:07)
[2020-11-14] MEDS: lactobacillus rhamnosus 10,000 MMU CELLS/CAPSULE PO SCH ×2 (08:07→20:17)
[2020-11-14] MEDS: aspirin 81mg tablet.DR PO SCH (08:07)
[2020-11-14] MEDS: allopurinol 100mg tablet PO SCH ×2 (08:08→20:17)
[2020-11-14] MEDS: famotidine 20mg tablet PO SCH (08:08)
[2020-11-14] MEDS: folic acid 1mg tablet PO SCH (08:08)
[2020-11-14] MEDS: diltiazem-NS 100mg/100ml 100 ML IV SCH (12:05)
[2020-11-14] MEDS: NORepinephrine 8mg/ 250ml NS 250 ML IV SCH (12:52)
[2020-11-14] MEDS ORDERED: [UNRECOGNIZED DRUG - REMARK] IV SCH ×2 (20:00)
[2020-11-14] MEDS: fat emulsion 20% inj. 100 ML IV SCH (20:18)
[2020-11-14] MEDS: insulin glargine (Lantus) pen - multi-dose SQ SCH (21:57)
[2020-11-15] VITALS (24 sets, daily range): BP systolic 93–139; BP diastolic 44–84
[2020-11-15] MEDS: heparin, porcine 5000 units/ml vial SQ SCH ×3 (01:53→16:41)
[2020-11-15] MEDS: methylPREDNISolone sod succ/PF 40mg inj. IV SCH ×4 (01:54→20:31)
[2020-11-15] MEDS: normal saline 1000ml 1,000 ML IV SCH (02:12)
[2020-11-15] MEDS: propofol 1000mg/100ml bottle 100 ML IV SCH ×4 (02:39→23:15)
[2020-11-15 03:38] LABS: BASOPHILS % (AUTO) 0 % (0-1); EOSINOPHILS % (AUTO) 0 % (0-6); HEMATOCRIT 27.7 % (42.0-52.0); HEMOGLOBIN 9.4 g/dl (14.0-17.9); LYMPHOCYTES # (AUTO) 0.3 X10'3 (1.1-4.8); MEAN CORPUSCULAR HEMOGLOBIN 34.6 PG (27.0-31.0); MEAN CORPUSCULAR HGB CONC 33.8 g/dL (33.0-36.5); MEAN CORPUSCULAR VOLUME 102.2 FL (78-98); MEAN PLATELET VOLUME 7.6 FL (7.4-10.4); MONOCYTES # (AUTO) 0.4 X10'3 (0-0.9); MONOCYTES % (AUTO) 2.2 % (2-12); NEUTROPHILS # (AUTO) 15.9 X10'3 (1.8-7.7); NEUTROPHILS % (AUTO) 95.8 % (42-75); PLATELET COUNT 477 X10'3 (140-440); RED BLOOD COUNT 2.71 X10'6 (4.70-6.10); RED CELL DISTRIBUTION WIDTH 16.1 % (11.5-14.5); WHITE BLOOD COUNT 16.6 X10'3 (4.5-11.0)
[2020-11-15 03:46] LABS: ALBUMIN 1.7 G/DL (3.4-5.0); ANION GAP 11 (8-16); BLOOD UREA NITROGEN 68 MG/DL (7-18); BUN/CREATININE RATIO 34.2 (5.4-32.0); CALCIUM 6.6 MG/DL (8.5-10.1); CHLORIDE 105 MMOL/L (99-107); CREATININE 1.99 MG/DL (0.60-1.10); GLUCOSE 149 MG/DL (70-104); MAGNESIUM 1.6 MG/DL (1.5-2.4); PREALBUMIN 23.5 MG/DL (19-36); SODIUM 141 MMOL/L (135-145); TOTAL CARBON DIOXIDE 25.3 MMOL/L (24-32); eGFR 33 ML/MIN
[2020-11-15] MEDS: ipratropium/albuterol 3ml nebule NEB SCH ×6 (03:48→23:24)
[2020-11-15] MEDS ORDERED: magnesium 2GM in 50ml NS 50 ML IV ONE (04:30)
[2020-11-15 04:39] LABS: ABG BASE EXCESS 0.8 mmol/L (-2.0-2.0); ABG OXYGEN SATURATION 94.1 % (94-97); ABG PCO2 (T) 27.2 mmHg (35.0-48.0); ABG PO2 (T) 62.8 mmHg (75.0-100.0); ALLEN'S TEST Modified; FCOHb 0.2 % (0.0-3.9); FMetHb 0.2 % (0.0-1.5); FO2Hb 93.7 % (94-97); PATIENT TEMPERATURE 35.7; PEEP 8 cm H2O; RESPIRATORY RATE 12 b/min; TIDAL VOLUME 500 mL; TOTAL HEMOGLOBIN 10.5 G/dl (14.0-18.0)
[2020-11-15] MEDS: potassium Cl 20mEq/100mL bag 100 ML IV SCH ×4 (05:13→09:49)
[2020-11-15] MEDS: NORepinephrine 8mg/ 250ml NS 250 ML IV SCH ×2 (05:16→22:40)
[2020-11-15] MEDS: diltiazem-NS 100mg/100ml 100 ML IV SCH (08:05)
[2020-11-15] MEDS: levoTHYROXINE 75mcg tablet PO SCH (08:47)
[2020-11-15] MEDS: folic acid 1mg tablet PO SCH (08:48)
[2020-11-15] MEDS: famotidine 20mg tablet PO SCH (08:48)
[2020-11-15] MEDS: aspirin 81mg tablet.DR PO SCH (08:48)
[2020-11-15] MEDS: chlordiazePOXIDE 5mg capsule PO SCH ×2 (08:48→20:28)
[2020-11-15] MEDS: lactobacillus rhamnosus 10,000 MMU CELLS/CAPSULE PO SCH ×2 (08:48→20:26)
[2020-11-15] MEDS: thiamine 100mg tablet PO SCH (08:48)
[2020-11-15] MEDS: piperacillin/tazo 3.375gm/50ml 50 ML IV SCH ×2 (08:48→16:41)
[2020-11-15] MEDS: MULTIVIT-MIN/FERROUS GLUCONATE 9 MG/15 ML LIQUID PO SCH (08:48)
[2020-11-15] MEDS: allopurinol 100mg tablet PO SCH ×2 (08:49→20:29)
[2020-11-15] MEDS: lisinopril 10 MG tablet PO SCH (08:49)
[2020-11-15] MEDS: insulin regular, human U-100 3ml vial - multi-dose SQ SCH ×3 (08:57→20:21)
[2020-11-15] MEDS ORDERED: furosemide 40mg/4ml inj IV ONE (10:45)
[2020-11-15] MEDS: SELENIUM IV SCH (14:31)
[2020-11-15] MEDS: MANGANESE IV SCH (14:31)
[2020-11-15] MEDS: ZINC IV SCH (14:31)
[2020-11-15] MEDS: [UNRECOGNIZED DRUG - OTHER] IV SCH (14:31)
[2020-11-15] MEDS: CHROMIC CHLORIDE IV SCH (14:31)
[2020-11-15] MEDS: COPPER IV SCH (14:31)
--- NOTE | 2020-11-15 16:17 | NUR ---
INTUBATION IN OTHER UNIT PT GETTING PICC LINE Addendum: 11/15/20 at 1618 by Pricila Lauren RT Amended: Links added.
--- NOTE | 2020-11-15 16:58 | NUR ---
[facility] LINE INFORMATION: REF: [id number] LOT: [id number] EXP: 05/02/2021
[2020-11-15] MEDS ORDERED: potassium Cl 20 mEq SR tablet PO PRN (19:55)
[2020-11-15] MEDS: insulin glargine (Lantus) pen - multi-dose SQ SCH (20:24)
[2020-11-15] MEDS: fat emulsion 20% inj. 100 ML IV SCH (20:45)
[2020-11-15] MEDS: potassium Cl 40MEQ/250ML bag 270 ML IV PRN (22:36)
[2020-11-16] VITALS (23 sets, daily range): BP systolic 81–133; BP diastolic 35–86
[2020-11-16] MEDS: piperacillin/tazo 3.375gm/50ml 50 ML IV SCH ×3 (01:47→15:28)
[2020-11-16 01:52] LABS: BASOPHILS % (AUTO) 0.1 % (0-1); EOSINOPHILS % (AUTO) 0 % (0-6); HEMATOCRIT 25.4 % (42.0-52.0); HEMOGLOBIN 8.6 g/dl (14.0-17.9); LYMPHOCYTES # (AUTO) 0.4 X10'3 (1.1-4.8); LYMPHOCYTES % (AUTO) 2.9 % (21-51); MEAN CORPUSCULAR HEMOGLOBIN 34.4 PG (27.0-31.0); MEAN CORPUSCULAR HGB CONC 33.8 g/dL (33.0-36.5); MEAN CORPUSCULAR VOLUME 101.9 FL (78-98); MEAN PLATELET VOLUME 7.4 FL (7.4-10.4); MONOCYTES # (AUTO) 0.6 X10'3 (0-0.9); MONOCYTES % (AUTO) 4.1 % (2-12); NEUTROPHILS # (AUTO) 13.1 X10'3 (1.8-7.7); NEUTROPHILS % (AUTO) 92.9 % (42-75); PLATELET COUNT 464 X10'3 (140-440); RED CELL DISTRIBUTION WIDTH 16.2 % (11.5-14.5); WHITE BLOOD COUNT 14.1 X10'3 (4.5-11.0)
[2020-11-16] MEDS: methylPREDNISolone sod succ/PF 40mg inj. IV SCH ×4 (01:56→21:59)
[2020-11-16 01:57] LABS: ALBUMIN 1.6 G/DL (3.4-5.0); ANION GAP 12 (8-16); BLOOD UREA NITROGEN 64 MG/DL (7-18); BUN/CREATININE RATIO 37.4 (5.4-32.0); CALCIUM 6.7 MG/DL (8.5-10.1); CHLORIDE 105 MMOL/L (99-107); CREATININE 1.71 MG/DL (0.60-1.10); GLUCOSE 190 MG/DL (70-104); MAGNESIUM 1.8 MG/DL (1.5-2.4); POTASSIUM 3.4 MMOL/L (3.5-5.1); SODIUM 141 MMOL/L (135-145); TOTAL CARBON DIOXIDE 24.3 MMOL/L (24-32); eGFR 40 ML/MIN
[2020-11-16 02:01] LABS: PARTIAL THROMBOPLASTIN TIME 29 SECONDS (22-32)
[2020-11-16] MEDS: insulin regular, human U-100 3ml vial - multi-dose SQ SCH ×3 (02:24→13:44)
[2020-11-16] MEDS: [UNRECOGNIZED DRUG - REMARK] IV SCH ×4 (02:25→14:53)
[2020-11-16] MEDS: ZINC IV SCH ×3 (02:49→15:44)
[2020-11-16] MEDS: [UNRECOGNIZED DRUG - OTHER] IV SCH ×2 (02:49→14:38)
[2020-11-16] MEDS: CHROMIC CHLORIDE IV SCH ×3 (02:49→15:44)
[2020-11-16] MEDS: MANGANESE IV SCH ×3 (02:49→15:44)
[2020-11-16] MEDS: COPPER IV SCH ×3 (02:49→15:44)
[2020-11-16] MEDS: SELENIUM IV SCH ×3 (02:49→15:44)
[2020-11-16] MEDS: ipratropium/albuterol 3ml nebule NEB SCH ×6 (03:13→23:23)
[2020-11-16] MEDS: diltiazem-NS 100mg/100ml 100 ML IV SCH (04:05)
[2020-11-16 04:42] LABS: ABG BASE EXCESS -0.4 mmol/L (-2.0-2.0); ABG HCO3 21.3 mmol/L (22.0-26.0); ABG OXYGEN SATURATION 94.6 % (94-97); ABG PCO2 (T) 25.1 mmHg (35.0-48.0); ABG PO2 (T) 71.4 mmHg (75.0-100.0); ALLEN'S TEST POSITIVE; FCOHb 0.2 % (0.0-3.9); FMetHb 0.4 % (0.0-1.5); PEEP 5 cm H2O; RESPIRATORY RATE 12 b/min; TIDAL VOLUME 500 mL; TOTAL HEMOGLOBIN 9.5 G/dl (14.0-18.0)
[2020-11-16] MEDS: propofol 1000mg/100ml bottle 100 ML IV SCH ×2 (05:43→12:19)
[2020-11-16] MEDS: thiamine 100mg tablet PO SCH (07:33)
[2020-11-16] MEDS: folic acid 1mg tablet PO SCH (07:33)
[2020-11-16] MEDS: aspirin 81mg tablet.DR PO SCH (07:33)
[2020-11-16] MEDS: levoTHYROXINE 75mcg tablet PO SCH (07:33)
[2020-11-16] MEDS: lactobacillus rhamnosus 10,000 MMU CELLS/CAPSULE PO SCH ×2 (07:33→22:00)
[2020-11-16] MEDS: allopurinol 100mg tablet PO SCH ×2 (07:33→22:00)
[2020-11-16] MEDS: MULTIVIT-MIN/FERROUS GLUCONATE 9 MG/15 ML LIQUID PO SCH (07:33)
[2020-11-16] MEDS: chlordiazePOXIDE 5mg capsule PO SCH ×2 (07:33→22:00)
[2020-11-16] MEDS: famotidine 20mg tablet PO SCH (07:33)
[2020-11-16] MEDS: potassium Cl 40MEQ/250ML bag 270 ML IV PRN (07:35)
[2020-11-16] MEDS: heparin, porcine 5000 units/ml vial SQ SCH ×3 (07:41→15:29)
[2020-11-16] MEDS: lisinopril 10 MG tablet PO SCH (07:45)
[2020-11-16] MEDS: normal saline 1000ml 1,000 ML IV SCH ×2 (10:35→21:59)
[2020-11-16 11:13] LABS: CREATINE KINASE 75 U/L (39-308)
--- NOTE | 2020-11-16 11:32 | NUR ---
TF consult: Pt remains intubated at this time with an NG tube in place. Per MD notes CT not consistent with a SBO and looks more like ileus. Pt documented to have two small BMs 11/15 and at critical care rounds RN reported a large BM today. Patient's nutrition to be transitioned to TF, see recommendations below. TF to begin at 20 mL/hr and no water flushes at this time as pt to start NS at 120 mL/hr per MD at critical care rounds. Will continue to follow closely and make recommendations as appropriate. Recommendations: 1) Continuous TF via NG tube using Vital AF with goal rate of 80 mL/hr. To begin at 20 mL/hr and advance by 20 mL Q8H as tolerated to goal rate. Once at goal to provide 1920 mL total volume/day, 2304 kcal, 144 g protein, and 1557 mL water 2) No water flushes at this time per MD 3) Wean TPN per protocol as TF increases 4) Prealbumin q Thursday/; daily wts 5) Continue routine MVM with iron, Thiamine, and folic acid for EtOH hx 6) Bowel care per rx Addendum: 11/16/20 at [address] Amended: Links added.
[2020-11-16] MEDS ORDERED: SELENIUM IV ONE (14:00)
[2020-11-16] MEDS ORDERED: [UNRECOGNIZED DRUG - OTHER] IV ONE (14:00)
[2020-11-16] MEDS ORDERED: MANGANESE IV ONE (14:00)
[2020-11-16] MEDS ORDERED: ZINC IV ONE (14:00)
[2020-11-16] MEDS ORDERED: COPPER IV ONE (14:00)
[2020-11-16] MEDS ORDERED: CHROMIC CHLORIDE IV ONE (14:00)
[2020-11-16] MEDS: NORepinephrine 8mg/ 250ml NS 250 ML IV SCH (15:34)
[2020-11-16] MEDS: [UNRECOGNIZED DRUG - OTHER] IV SCH (15:44)
--- NOTE | 2020-11-16 18:29 | NUR ---
Problems reprioritized. Patient report given, questions answered & plan of care reviewed with Calvin.
[2020-11-16] MEDS: insulin glargine (Lantus) pen - multi-dose SQ SCH (21:00)
[2020-11-17] VITALS (23 sets, daily range): BP systolic 88–137; BP diastolic 52–88
[2020-11-17] MEDS: diltiazem-NS 100mg/100ml 100 ML IV SCH (00:05)
[2020-11-17] MEDS: piperacillin/tazo 3.375gm/50ml 50 ML IV SCH ×3 (02:11→15:49)
[2020-11-17] MEDS: methylPREDNISolone sod succ/PF 40mg inj. IV SCH ×4 (02:11→21:18)
[2020-11-17] MEDS: heparin, porcine 5000 units/ml vial SQ SCH ×3 (02:13→15:48)
[2020-11-17] MEDS: ipratropium/albuterol 3ml nebule NEB SCH ×6 (02:52→23:18)
[2020-11-17 03:10] LABS: ABG BASE EXCESS 0.1 mmol/L (-2.0-2.0); ABG HCO3 21.9 mmol/L (22.0-26.0); ABG OXYGEN SATURATION 95.4 % (94-97); ABG PCO2 (T) 25.8 mmHg (35.0-48.0); ABG PO2 (T) 78.2 mmHg (75.0-100.0); ALLEN'S TEST POSITIVE; FCOHb 0.3 % (0.0-3.9); FMetHb 0.5 % (0.0-1.5); FO2Hb 94.6 % (94-97); PATIENT TEMPERATURE 37.3; PEEP 5 cm H2O; RESPIRATORY RATE 12 b/min; TIDAL VOLUME 500 mL; TOTAL HEMOGLOBIN 8.4 G/dl (14.0-18.0)
[2020-11-17 03:11] LABS: ALBUMIN 1.5 G/DL (3.4-5.0); ANION GAP 11 (8-16); BASOPHILS % (AUTO) 0.1 % (0-1); BLOOD UREA NITROGEN 62 MG/DL (7-18); BUN/CREATININE RATIO 42.2 (5.4-32.0); CALCIUM 6.6 MG/DL (8.5-10.1); CHLORIDE 108 MMOL/L (99-107); CREATINE KINASE 70 U/L (39-308); CREATININE 1.47 MG/DL (0.60-1.10); EOSINOPHILS % (AUTO) 0 % (0-6); GLUCOSE 148 MG/DL (70-104); HEMATOCRIT 22.7 % (42.0-52.0); HEMOGLOBIN 7.4 g/dl (14.0-17.9); LYMPHOCYTES # (AUTO) 0.6 X10'3 (1.1-4.8); LYMPHOCYTES % (AUTO) 3.7 % (21-51); MAGNESIUM 1.4 MG/DL (1.5-2.4); MEAN CORPUSCULAR HEMOGLOBIN 33.2 PG (27.0-31.0); MEAN CORPUSCULAR HGB CONC 32.5 g/dL (33.0-36.5); MEAN CORPUSCULAR VOLUME 102.2 FL (78-98); MEAN PLATELET VOLUME 7.6 FL (7.4-10.4); MONOCYTES # (AUTO) 0.5 X10'3 (0-0.9); MONOCYTES % (AUTO) 3.5 % (2-12); NEUTROPHILS # (AUTO) 14.4 X10'3 (1.8-7.7); NEUTROPHILS % (AUTO) 92.7 % (42-75); PLATELET COUNT 413 X10'3 (140-440); POTASSIUM 3.1 MMOL/L (3.5-5.1); RED BLOOD COUNT 2.22 X10'6 (4.70-6.10); RED CELL DISTRIBUTION WIDTH 16.1 % (11.5-14.5); SODIUM 141 MMOL/L (135-145); TOTAL CARBON DIOXIDE 22.3 MMOL/L (24-32); WHITE BLOOD COUNT 15.5 X10'3 (4.5-11.0); eGFR 47 ML/MIN
[2020-11-17] MEDS ORDERED: potassium Cl 20 mEq SR tablet PO PRN ×2 (04:20)
[2020-11-17] MEDS ORDERED: magnesium 2GM in 50ml NS 50 ML IV PRN (04:20)
[2020-11-17] MEDS: potassium Cl 20mEq/100mL bag 100 ML IV SCH ×2 (04:47→05:41)
[2020-11-17] MEDS: propofol 1000mg/100ml bottle 100 ML IV SCH (05:40)
[2020-11-17] MEDS: levoTHYROXINE 75mcg tablet PO SCH (07:14)
[2020-11-17] MEDS: MULTIVIT-MIN/FERROUS GLUCONATE 9 MG/15 ML LIQUID PO SCH (07:14)
[2020-11-17] MEDS: chlordiazePOXIDE 5mg capsule PO SCH ×2 (07:14→21:17)
[2020-11-17] MEDS: folic acid 1mg tablet PO SCH (07:15)
[2020-11-17] MEDS: aspirin 81mg tablet.DR PO SCH (07:15)
[2020-11-17] MEDS: famotidine 20mg tablet PO SCH (07:15)
[2020-11-17] MEDS: allopurinol 100mg tablet PO SCH ×2 (07:15→20:00)
[2020-11-17] MEDS: lactobacillus rhamnosus 10,000 MMU CELLS/CAPSULE PO SCH ×2 (07:15→21:18)
[2020-11-17] MEDS: thiamine 100mg tablet PO SCH (07:15)
[2020-11-17] MEDS: magnesium 2GM in 50ml NS 50 ML IV PRN ×2 (07:16→11:00)
[2020-11-17] MEDS: insulin regular, human U-100 3ml vial - multi-dose SQ SCH (07:55)
[2020-11-17] MEDS: lisinopril 10 MG tablet PO SCH (08:00)
[2020-11-17] MEDS: K and/or MAG REPLACEMENT MC SCH (08:04)
[2020-11-17] MEDS: normal saline 1000ml 1,000 ML IV SCH ×3 (08:17→19:55)
[2020-11-17] MEDS ORDERED: dexmedetomidine/D5W 100mL 100 ML IV SCH (08:25)
[2020-11-17] MEDS: NORepinephrine 8mg/ 250ml NS 250 ML IV SCH ×2 (08:28→10:19)
[2020-11-17 09:01] LABS: ABG BASE EXCESS -2.4 mmol/L (-2.0-2.0); ABG HCO3 19.3 mmol/L (22.0-26.0); ABG OXYGEN SATURATION 93.9 % (94-97); ABG PCO2 (T) 23.1 mmHg (35.0-48.0); ABG PO2 (T) 70.2 mmHg (75.0-100.0); ALLEN'S TEST POSITIVE; FCOHb 0.2 % (0.0-3.9); FMetHb 0.4 % (0.0-1.5); FO2Hb 93.3 % (94-97); PATIENT TEMPERATURE 37.1; PEEP 5 cm H2O; RESPIRATORY RATE 12 b/min; TOTAL HEMOGLOBIN 8.4 G/dl (14.0-18.0)
[2020-11-17] MEDS ORDERED: dexmedetomidine/D5W 100mL 100 ML IV PRN (09:05)
[2020-11-17] MEDS: Dextrose 10%-water IV solution 1,000 ML IV SCH (11:36)
[2020-11-17] MEDS: dexmedetomidine/D5W 100mL 100 ML IV SCH (12:30)
[2020-11-17] MEDS: potassium Cl 40MEQ/250ML bag 270 ML IV PRN (13:10)
[2020-11-17] MEDS: CHROMIC CHLORIDE IV SCH (13:35)
[2020-11-17] MEDS: ZINC IV SCH (13:35)
[2020-11-17] MEDS: [UNRECOGNIZED DRUG - OTHER] IV SCH (13:35)
[2020-11-17] MEDS: COPPER IV SCH (13:35)
[2020-11-17] MEDS: MANGANESE IV SCH (13:35)
[2020-11-17] MEDS: SELENIUM IV SCH (13:35)
[2020-11-17 15:51] LABS: ABG BASE EXCESS -3.5 mmol/L (-2.0-2.0); ABG OXYGEN SATURATION 97.7 % (94-97); ABG PCO2 (T) 25.6 mmHg (35.0-48.0); ABG PO2 (T) 109.6 mmHg (75.0-100.0); ALLEN'S TEST POSITIVE; FCOHb 0.2 % (0.0-3.9); FMetHb 0.4 % (0.0-1.5); FO2Hb 97.1 % (94-97); PEEP 5 cm H2O; RESPIRATORY RATE 12 b/min; TIDAL VOLUME 500 mL; TOTAL HEMOGLOBIN 9.2 G/dl (14.0-18.0)
[2020-11-17 16:33] LABS: MAGNESIUM 2.5 MG/DL (1.5-2.4); POTASSIUM 4.2 MMOL/L (3.5-5.1)
--- NOTE | 2020-11-17 17:51 | NUR ---
Insulin not administered at lunch time because pt was being switched from TPN to tube feed and his blood sugar was running low (80s). D10W started at 50 mL/h, tube feed rate increased to 80mL/h. Blood sugar remained stable throughout the day.
--- NOTE | 2020-11-17 18:17 | NUR ---
Problems reprioritized. Patient report given, questions answered & plan of care reviewed with Calvin.
[2020-11-17] MEDS: insulin glargine (Lantus) pen - multi-dose SQ SCH (21:36)
[2020-11-18] VITALS (26 sets, daily range): BP systolic 82–152; BP diastolic 44–80
[2020-11-18] MEDS: heparin, porcine 5000 units/ml vial SQ SCH ×3 (00:14→15:16)
[2020-11-18] MEDS: piperacillin/tazo 3.375gm/50ml 50 ML IV SCH ×3 (00:14→15:15)
[2020-11-18] MEDS: methylPREDNISolone sod succ/PF 40mg inj. IV SCH ×4 (02:41→21:43)
[2020-11-18] MEDS: ipratropium/albuterol 3ml nebule NEB SCH ×6 (03:06→23:16)
[2020-11-18 03:48] LABS: BASOPHILS % (AUTO) 0 % (0-1); EOSINOPHILS % (AUTO) 0.1 % (0-6); LYMPHOCYTES # (AUTO) 0.5 X10'3 (1.1-4.8); LYMPHOCYTES % (AUTO) 3.3 % (21-51); MEAN CORPUSCULAR HEMOGLOBIN 33.9 PG (27.0-31.0); MEAN CORPUSCULAR VOLUME 102.7 FL (78-98); MEAN PLATELET VOLUME 7.7 FL (7.4-10.4); MONOCYTES # (AUTO) 0.5 X10'3 (0-0.9); MONOCYTES % (AUTO) 3.3 % (2-12); NEUTROPHILS # (AUTO) 13.9 X10'3 (1.8-7.7); NEUTROPHILS % (AUTO) 93.3 % (42-75); PLATELET COUNT 356 X10'3 (140-440); RED BLOOD COUNT 1.94 X10'6 (4.70-6.10); RED CELL DISTRIBUTION WIDTH 16.5 % (11.5-14.5); WHITE BLOOD COUNT 14.9 X10'3 (4.5-11.0)
[2020-11-18 04:10] LABS: ALLEN'S TEST POSITIVE; PEEP 5 cm H2O; RESPIRATORY RATE 12 b/min; TIDAL VOLUME 500 mL
[2020-11-18 04:11] LABS: ABG BASE EXCESS -4.5 mmol/L (-2.0-2.0); ABG HCO3 17.6 mmol/L (22.0-26.0); ABG OXYGEN SATURATION 97.1 % (94-97); ABG PCO2 (T) 22.4 mmHg (35.0-48.0); ABG PO2 (T) 92.3 mmHg (75.0-100.0); FCOHb 0.3 % (0.0-3.9); FMetHb 0.3 % (0.0-1.5); FO2Hb 96.5 % (94-97)
[2020-11-18 04:14] LABS: ALANINE AMINOTRANSFERASE 34 U/L (12-78); ALBUMIN 1.5 G/DL (3.4-5.0); ALBUMIN/GLOBULIN RATIO 0.4 (1.1-1.5); ALKALINE PHOSPHATASE 47 IU/L (46-116); ANION GAP 12 (8-16); ASPARTATE AMINO TRANSFERASE 31 U/L (10-37); BILIRUBIN,TOTAL 0.2 MG/DL (0.1-1.0); BLOOD UREA NITROGEN 52 MG/DL (7-18); BUN/CREATININE RATIO 41.9 (5.4-32.0); CALCIUM 6.6 MG/DL (8.5-10.1); CHLORIDE 109 MMOL/L (99-107); CREATININE 1.24 MG/DL (0.60-1.10); GLUCOSE 148 MG/DL (70-104); PHOSPHORUS 2.1 MG/DL (2.3-4.5); POTASSIUM 3.8 MMOL/L (3.5-5.1); SODIUM 140 MMOL/L (135-145); TOTAL CARBON DIOXIDE 18.9 MMOL/L (24-32); eGFR 57 ML/MIN
[2020-11-18] MEDS: normal saline 1000ml 1,000 ML IV SCH ×4 (04:15→23:55)
[2020-11-18 04:21] LABS: HEMOGLOBIN 6.6 g/dl (14.0-17.9)
--- NOTE | 2020-11-18 07:15 | NUR ---
critical hemoglobin. Dr ordered type and screen. no consent done, will refer to day doctor on whether to do an emergent Transfusion.
[2020-11-18] MEDS: Dextrose 10%-water IV solution 1,000 ML IV SCH (07:24)
[2020-11-18] MEDS: levoTHYROXINE 75mcg tablet PO SCH (07:28)
[2020-11-18] MEDS: thiamine 100mg tablet PO SCH (07:29)
[2020-11-18] MEDS: aspirin 81mg tablet.DR PO SCH (07:29)
[2020-11-18] MEDS: chlordiazePOXIDE 5mg capsule PO SCH ×2 (07:29→21:42)
[2020-11-18] MEDS: famotidine 20mg tablet PO SCH (07:29)
[2020-11-18] MEDS: lactobacillus rhamnosus 10,000 MMU CELLS/CAPSULE PO SCH ×2 (07:29→21:43)
[2020-11-18] MEDS: folic acid 1mg tablet PO SCH (07:29)
[2020-11-18] MEDS: MULTIVIT-MIN/FERROUS GLUCONATE 9 MG/15 ML LIQUID PO SCH (07:29)
[2020-11-18] MEDS: allopurinol 100mg tablet PO SCH ×2 (07:30→21:43)
[2020-11-18] MEDS: lisinopril 10 MG tablet PO SCH (07:30)
[2020-11-18 07:38] LABS: BASOPHILS % (AUTO) 0.1 % (0-1); EOSINOPHILS % (AUTO) 0 % (0-6); LYMPHOCYTES # (AUTO) 0.5 X10'3 (1.1-4.8); LYMPHOCYTES % (AUTO) 2.8 % (21-51); MEAN CORPUSCULAR HEMOGLOBIN 34.4 PG (27.0-31.0); MEAN CORPUSCULAR HGB CONC 33.4 g/dL (33.0-36.5); MEAN CORPUSCULAR VOLUME 102.9 FL (78-98); MEAN PLATELET VOLUME 7.5 FL (7.4-10.4); MONOCYTES # (AUTO) 0.6 X10'3 (0-0.9); MONOCYTES % (AUTO) 3.5 % (2-12); NEUTROPHILS # (AUTO) 15.1 X10'3 (1.8-7.7); NEUTROPHILS % (AUTO) 93.6 % (42-75); PLATELET COUNT 357 X10'3 (140-440); RED BLOOD COUNT 1.99 X10'6 (4.70-6.10); RED CELL DISTRIBUTION WIDTH 16.2 % (11.5-14.5); WHITE BLOOD COUNT 16.1 X10'3 (4.5-11.0)
[2020-11-18 07:54] LABS: HEMATOCRIT 20.5 % (42.0-52.0); HEMOGLOBIN 6.8 g/dl (14.0-17.9)
[2020-11-18] MEDS: K and/or MAG REPLACEMENT MC SCH (08:00)
[2020-11-18] MEDS: dexmedetomidine/D5W 100mL 100 ML IV SCH ×2 (09:59→19:37)
[2020-11-18] MEDS ORDERED: metoclopramide 5 mg/ml inj IV PRN (10:30)
[2020-11-18 10:47] LABS: CREATINE KINASE 268 U/L (39-308)
[2020-11-18] MEDS ORDERED: furosemide 40mg/4ml inj IV ONE (12:15)
[2020-11-18 15:08] LABS: BASOPHILS % (AUTO) 0.1 % (0-1); EOSINOPHILS % (AUTO) 0.1 % (0-6); HEMOGLOBIN 7.1 g/dl (14.0-17.9); LYMPHOCYTES # (AUTO) 0.5 X10'3 (1.1-4.8); LYMPHOCYTES % (AUTO) 4.3 % (21-51); MEAN CORPUSCULAR HEMOGLOBIN 32.4 PG (27.0-31.0); MEAN CORPUSCULAR HGB CONC 32.8 g/dL (33.0-36.5); MEAN CORPUSCULAR VOLUME 98.7 FL (78-98); MEAN PLATELET VOLUME 7.5 FL (7.4-10.4); MONOCYTES # (AUTO) 0.5 X10'3 (0-0.9); MONOCYTES % (AUTO) 4.3 % (2-12); NEUTROPHILS # (AUTO) 10.3 X10'3 (1.8-7.7); NEUTROPHILS % (AUTO) 91.2 % (42-75); PLATELET COUNT 271 X10'3 (140-440); RED BLOOD COUNT 2.21 X10'6 (4.70-6.10); RED CELL DISTRIBUTION WIDTH 19.9 % (11.5-14.5); WHITE BLOOD COUNT 11.3 X10'3 (4.5-11.0)
[2020-11-18 15:10] LABS: HEMATOCRIT 21.8 % (42.0-52.0)
[2020-11-18 15:41] LABS: TOTAL CELLS COUNTED 100
[2020-11-18 15:42] LABS: ANISOCYTOSIS 2+; PLATELET ESTIMATE NORMAL
[2020-11-18 15:43] LABS: BURR CELLS FEW; LARGE PLATELETS FEW
[2020-11-18] MEDS: fentaNYL/PF 50MCG/1 ML 2ML syringe IV PRN (16:08)
[2020-11-18] MEDS: LORazepam 2 mg/ml vial IV PRN (16:22)
[2020-11-18] MEDS: NORepinephrine 8mg/ 250ml NS 250 ML IV SCH (18:16)
--- NOTE | 2020-11-18 18:30 | NUR ---
Patient in room CICU 2013. I have received report from NATHAN Lima and had the opportunity to ask questions and assume patient care.
[2020-11-18] MEDS: insulin glargine (Lantus) pen - multi-dose SQ SCH (21:50)
[2020-11-19] VITALS (24 sets, daily range): BP systolic 97–138; BP diastolic 42–90
[2020-11-19] MEDS: piperacillin/tazo 3.375gm/50ml 50 ML IV SCH ×3 (00:01→15:29)
[2020-11-19] MEDS: heparin, porcine 5000 units/ml vial SQ SCH ×3 (00:01→15:29)
[2020-11-19] MEDS: dexmedetomidine/D5W 100mL 100 ML IV SCH ×4 (01:15→20:59)
[2020-11-19] MEDS: Dextrose 10%-water IV solution 1,000 ML IV SCH ×2 (02:34→23:25)
[2020-11-19] MEDS: methylPREDNISolone sod succ/PF 40mg inj. IV SCH ×4 (02:34→20:43)
[2020-11-19 03:12] LABS: BASOPHILS % (AUTO) 0.1 % (0-1); EOSINOPHILS % (AUTO) 0.1 % (0-6); HEMATOCRIT 23.8 % (42.0-52.0); HEMOGLOBIN 7.9 g/dl (14.0-17.9); LYMPHOCYTES # (AUTO) 0.4 X10'3 (1.1-4.8); LYMPHOCYTES % (AUTO) 3.3 % (21-51); MEAN CORPUSCULAR VOLUME 97.1 FL (78-98); MEAN PLATELET VOLUME 7.8 FL (7.4-10.4); MONOCYTES # (AUTO) 0.4 X10'3 (0-0.9); MONOCYTES % (AUTO) 3.8 % (2-12); NEUTROPHILS # (AUTO) 10.6 X10'3 (1.8-7.7); NEUTROPHILS % (AUTO) 92.7 % (42-75); PLATELET COUNT 278 X10'3 (140-440); RED BLOOD COUNT 2.45 X10'6 (4.70-6.10); WHITE BLOOD COUNT 11.4 X10'3 (4.5-11.0)
[2020-11-19 03:17] LABS: ALANINE AMINOTRANSFERASE 39 U/L (12-78); ALBUMIN 1.6 G/DL (3.4-5.0); ALBUMIN/GLOBULIN RATIO 0.4 (1.1-1.5); ALKALINE PHOSPHATASE 54 IU/L (46-116); ANION GAP 13 (8-16); ASPARTATE AMINO TRANSFERASE 37 U/L (10-37); BILIRUBIN,TOTAL 0.3 MG/DL (0.1-1.0); BLOOD UREA NITROGEN 40 MG/DL (7-18); CALCIUM 7.5 MG/DL (8.5-10.1); CHLORIDE 108 MMOL/L (99-107); CREATINE KINASE 382 U/L (39-308); CREATININE 1.11 MG/DL (0.60-1.10); GLUCOSE 142 MG/DL (70-104); MAGNESIUM 1.7 MG/DL (1.5-2.4); POTASSIUM 3.8 MMOL/L (3.5-5.1); PREALBUMIN 33.8 MG/DL (19-36); SODIUM 138 MMOL/L (135-145); TOTAL CARBON DIOXIDE 17.4 MMOL/L (24-32); TOTAL PROTEIN 5.4 G/DL (6.4-8.2); eGFR 65 ML/MIN
[2020-11-19] MEDS: ipratropium/albuterol 3ml nebule NEB SCH ×6 (03:20→23:12)
[2020-11-19 03:31] LABS: ABG OXYGEN SATURATION 93.4 % (94-97); ABG PCO2 (T) 21.6 mmHg (35.0-48.0); ABG PO2 (T) 61.7 mmHg (75.0-100.0); ALLEN'S TEST POSITIVE; FCOHb 0.3 % (0.0-3.9); FMetHb 0.4 % (0.0-1.5); FO2Hb 92.7 % (94-97); PATIENT TEMPERATURE 36.6; PEEP 5 cm H2O; RESPIRATORY RATE 12 b/min; TIDAL VOLUME 500 mL; TOTAL HEMOGLOBIN 8.4 G/dl (14.0-18.0)
[2020-11-19] MEDS: LORazepam 2 mg/ml vial IV PRN (04:38)
[2020-11-19 05:35] LABS: ABG BASE EXCESS -5.4 mmol/L (-2.0-2.0); ABG HCO3 16.9 mmol/L (22.0-26.0); ABG OXYGEN SATURATION 93.9 % (94-97); ABG PCO2 (T) 22.4 mmHg (35.0-48.0); ABG PO2 (T) 68.3 mmHg (75.0-100.0); ALLEN'S TEST POSITIVE; FCOHb 0.2 % (0.0-3.9); FMetHb 0.6 % (0.0-1.5); FO2Hb 93.1 % (94-97); PATIENT TEMPERATURE 36.6; PEEP 5 cm H2O; RESPIRATORY RATE 12 b/min; TIDAL VOLUME 400 mL; TOTAL HEMOGLOBIN 8.6 G/dl (14.0-18.0)
--- NOTE | 2020-11-19 06:29 | NUR ---
Problems reprioritized. Patient report given, questions answered & plan of care reviewed with NATHAN Smart.
[2020-11-19] MEDS ORDERED: MVI, adult No.4 with vit. K 10 ML in dextrose 5% water 500ml 500 ML IV SCH ×2 (08:00)
[2020-11-19] MEDS: K and/or MAG REPLACEMENT MC SCH (08:00)
[2020-11-19] MEDS: MULTIVIT-MIN/FERROUS GLUCONATE 9 MG/15 ML LIQUID PO SCH (08:16)
[2020-11-19] MEDS: metoclopramide 5 mg/ml inj IV SCH ×3 (08:16→20:43)
[2020-11-19] MEDS: levoTHYROXINE 75mcg tablet PO SCH (08:16)
[2020-11-19] MEDS: aspirin 81mg tablet.DR PO SCH (08:17)
[2020-11-19] MEDS: famotidine 20mg tablet PO SCH (08:17)
[2020-11-19] MEDS: folic acid 1mg tablet PO SCH (08:17)
[2020-11-19] MEDS: allopurinol 100mg tablet PO SCH ×2 (08:17→20:43)
[2020-11-19] MEDS: chlordiazePOXIDE 5mg capsule PO SCH ×2 (08:17→20:43)
[2020-11-19] MEDS: lactobacillus rhamnosus 10,000 MMU CELLS/CAPSULE PO SCH ×2 (08:17→20:43)
[2020-11-19] MEDS: thiamine 100mg tablet PO SCH (08:17)
[2020-11-19] MEDS: lisinopril 10 MG tablet PO SCH (08:19)
[2020-11-19] MEDS ORDERED: furosemide 40mg/4ml inj IV ONE (09:00)
[2020-11-19 11:04] LABS: ANISOCYTOSIS 2+; PLATELET ESTIMATE NORMAL
[2020-11-19 11:05] LABS: LARGE PLATELETS FEW
[2020-11-19 11:25] LABS: TRIGLYCERIDES 151 MG/DL (20-135)
--- NOTE | 2020-11-19 12:26 | NUR ---
Reassessment: Pt remains intubated at this time, TF held 11/18 d/t high GRV of 500ml; TF restarted today at 20 ml/hr and will advance as tolerated per MD. Last BM 11/16, reglan started today to assist with gut motility per RN at critical care rounds. Will continue to monitor closely. Recommendations: 1) Continuous TF via NG tube using Vital AF with goal rate of 80 mL/hr. To begin at 20 mL/hr and advance by 20 mL Q8H as tolerated to goal rate. Once at goal to provide 1920 mL total volume/day, 2304 kcal, 144 g protein, and 1557 mL water 2) No water flushes at this time per MD 3) Prealbumin q Thursday/; daily wts 4) Continue routine MVM with iron, Thiamine, and folic acid for EtOH hx 5) Bowel care per rx, promotility agent per MD Addendum: 11/19/20 at [address] Amended: Links added. Addendum: 11/19/20 at [address] RD agrees w/ above development intern note.
[2020-11-19] MEDS: magnesium 4gm in 100ml NS 100 ML IV PRN (14:19)
[2020-11-19] MEDS: magnesium 2GM in 50ml NS 50 ML IV PRN (17:43)
[2020-11-19] MEDS: fentaNYL/PF 50MCG/1 ML 2ML syringe IV PRN (20:42)
[2020-11-19] MEDS: furosemide 40mg/4ml inj IV SCH (20:42)
[2020-11-19] MEDS: insulin glargine (Lantus) pen - multi-dose SQ SCH (21:00)
[2020-11-20] VITALS (28 sets, daily range): BP systolic 85–159; BP diastolic 52–101
[2020-11-20] MEDS: piperacillin/tazo 3.375gm/50ml 50 ML IV SCH ×4 (00:07→23:58)
[2020-11-20] MEDS: heparin, porcine 5000 units/ml vial SQ SCH ×4 (00:14→23:59)
[2020-11-20] MEDS: fentaNYL/PF 50MCG/1 ML 2ML syringe IV PRN (01:15)
[2020-11-20] MEDS: LORazepam 2 mg/ml vial IV PRN ×2 (02:05→17:41)
[2020-11-20] MEDS: methylPREDNISolone sod succ/PF 40mg inj. IV SCH ×4 (02:05→20:29)
[2020-11-20] MEDS: metoclopramide 5 mg/ml inj IV SCH ×4 (02:05→20:29)
[2020-11-20 02:46] LABS: BASOPHILS % (AUTO) 0 % (0-1); EOSINOPHILS % (AUTO) 0 % (0-6); HEMOGLOBIN 7.3 g/dl (14.0-17.9); LYMPHOCYTES # (AUTO) 0.5 X10'3 (1.1-4.8); LYMPHOCYTES % (AUTO) 3.2 % (21-51); MEAN CORPUSCULAR HEMOGLOBIN 32.5 PG (27.0-31.0); MEAN CORPUSCULAR HGB CONC 33.4 g/dL (33.0-36.5); MEAN CORPUSCULAR VOLUME 97.3 FL (78-98); MEAN PLATELET VOLUME 7.9 FL (7.4-10.4); MONOCYTES # (AUTO) 0.6 X10'3 (0-0.9); MONOCYTES % (AUTO) 3.3 % (2-12); NEUTROPHILS # (AUTO) 15.5 X10'3 (1.8-7.7); NEUTROPHILS % (AUTO) 93.5 % (42-75); PLATELET COUNT 358 X10'3 (140-440); RED BLOOD COUNT 2.25 X10'6 (4.70-6.10); RED CELL DISTRIBUTION WIDTH 19.5 % (11.5-14.5); WHITE BLOOD COUNT 16.6 X10'3 (4.5-11.0)
[2020-11-20 02:50] LABS: HEMATOCRIT 21.9 % (42.0-52.0)
[2020-11-20 03:00] LABS: ALANINE AMINOTRANSFERASE 50 U/L (12-78); ALBUMIN 1.7 G/DL (3.4-5.0); ALBUMIN/GLOBULIN RATIO 0.4 (1.1-1.5); ALKALINE PHOSPHATASE 59 IU/L (46-116); ANION GAP 15 (8-16); ASPARTATE AMINO TRANSFERASE 50 U/L (10-37); BILIRUBIN,TOTAL 0.3 MG/DL (0.1-1.0); BLOOD UREA NITROGEN 36 MG/DL (7-18); CALCIUM 7.6 MG/DL (8.5-10.1); CHLORIDE 104 MMOL/L (99-107); CREATINE KINASE 533 U/L (39-308); GLUCOSE 128 MG/DL (70-104); MAGNESIUM 2.5 MG/DL (1.5-2.4); POTASSIUM 3.5 MMOL/L (3.5-5.1); SODIUM 137 MMOL/L (135-145); TOTAL CARBON DIOXIDE 18.4 MMOL/L (24-32); TOTAL PROTEIN 5.6 G/DL (6.4-8.2); TRIGLYCERIDES 99 MG/DL (20-135); eGFR 60 ML/MIN
[2020-11-20] MEDS: ipratropium/albuterol 3ml nebule NEB SCH ×6 (03:29→23:04)
[2020-11-20 03:41] LABS: ABG BASE EXCESS -3.5 mmol/L (-2.0-2.0); ABG HCO3 18.4 mmol/L (22.0-26.0); ABG OXYGEN SATURATION 91.9 % (94-97); ABG PCO2 (T) 22.9 mmHg (35.0-48.0); ABG PO2 (T) 58.1 mmHg (75.0-100.0); ALLEN'S TEST POSITIVE; FCOHb 0.3 % (0.0-3.9); FMetHb 0.6 % (0.0-1.5); FO2Hb 91.1 % (94-97); PEEP 5 cm H2O; RESPIRATORY RATE 12 b/min; TIDAL VOLUME 400 mL; TOTAL HEMOGLOBIN 8.3 G/dl (14.0-18.0)
[2020-11-20] MEDS: dexmedetomidine/D5W 100mL 100 ML IV SCH ×3 (05:14→22:34)
--- NOTE | 2020-11-20 06:12 | NUR ---
Problems reprioritized. Patient report given, questions answered & plan of care reviewed with NATHAN Smart.
[2020-11-20] MEDS ORDERED: QUEtiapine 25mg tablet PO SCH (08:00)
[2020-11-20 08:01] LABS: ANISOCYTOSIS 2+; HYPOCHROMASIA 1+; PLATELET ESTIMATE NORMAL
[2020-11-20 08:08] LABS: SCHISTOCYTES FEW
[2020-11-20] MEDS: MULTIVIT-MIN/FERROUS GLUCONATE 9 MG/15 ML LIQUID PO SCH (09:08)
[2020-11-20] MEDS: aspirin 81mg tablet.DR PO SCH (09:08)
[2020-11-20] MEDS: furosemide 40mg/4ml inj IV SCH ×2 (09:08→20:28)
[2020-11-20] MEDS: lactobacillus rhamnosus 10,000 MMU CELLS/CAPSULE PO SCH (09:08)
[2020-11-20] MEDS: levoTHYROXINE 75mcg tablet PO SCH (09:08)
[2020-11-20] MEDS: thiamine 100mg tablet PO SCH (09:09)
[2020-11-20] MEDS: chlordiazePOXIDE 5mg capsule PO SCH (09:09)
[2020-11-20] MEDS: folic acid 1mg tablet PO SCH (09:09)
[2020-11-20] MEDS: famotidine 20mg tablet PO SCH (09:09)
[2020-11-20] MEDS: allopurinol 100mg tablet PO SCH (09:09)
[2020-11-20] MEDS: lisinopril 10 MG tablet PO SCH (09:10)
[2020-11-20] MEDS ORDERED: POTASSIUM BICARB 20meq eff tab 20 MEQ TABLET.EFF PO ONE (10:55)
[2020-11-20] MEDS: normal saline 1000ml 1,000 ML IV SCH ×2 (11:01→20:28)
[2020-11-20] MEDS ORDERED: dextrose ORAL solution 15 GM/59 ML bottle NG PRN ×2 (11:11)
[2020-11-20] MEDS ORDERED: Neutra Phos packet NG PRN (11:15)
[2020-11-20] MEDS ORDERED: POTASSIUM BICARB 20meq eff tab 20 MEQ TABLET.EFF NG ONE (11:16)
--- NOTE | 2020-11-20 18:15 | NUR ---
Patient in room CICU 2013. I have received report from NATHAN Garcia and had the opportunity to ask questions and assume patient care.
[2020-11-20] MEDS: lactobacillus rhamnosus 10,000 MMU CELLS/CAPSULE NG SCH (20:30)
[2020-11-20] MEDS: allopurinol 100mg tablet NG SCH (20:30)
[2020-11-20] MEDS: chlordiazePOXIDE 5mg capsule NG SCH (20:30)
[2020-11-20] MEDS: insulin glargine (Lantus) pen - multi-dose SQ SCH (21:00)
[2020-11-21] VITALS (24 sets, daily range): BP systolic 100–144; BP diastolic 67–83
[2020-11-21] MEDS: fentaNYL/PF 50MCG/1 ML 2ML syringe IV PRN ×3 (01:23→22:39)
[2020-11-21] MEDS: methylPREDNISolone sod succ/PF 40mg inj. IV SCH ×4 (02:20→19:34)
[2020-11-21] MEDS: metoclopramide 5 mg/ml inj IV SCH ×4 (02:20→19:34)
[2020-11-21] MEDS: ipratropium/albuterol 3ml nebule NEB SCH ×6 (02:51→23:04)
[2020-11-21 03:04] LABS: ABG BASE EXCESS -4.2 mmol/L (-2.0-2.0); ABG HCO3 18.1 mmol/L (22.0-26.0); ABG OXYGEN SATURATION 96.7 % (94-97); ABG PCO2 (T) 24.1 mmHg (35.0-48.0); ABG PO2 (T) 89.2 mmHg (75.0-100.0); FCOHb 0.2 % (0.0-3.9); FMetHb 0.6 % (0.0-1.5); FO2Hb 95.9 % (94-97); PEEP 5 cm H2O; RESPIRATORY RATE 12 b/min; TIDAL VOLUME 400 mL; TOTAL HEMOGLOBIN 9.2 G/dl (14.0-18.0)
[2020-11-21 03:32] LABS: BASOPHILS % (AUTO) 0.1 % (0-1); EOSINOPHILS % (AUTO) 0 % (0-6); HEMATOCRIT 24.4 % (42.0-52.0); HEMOGLOBIN 8.4 g/dl (14.0-17.9); LYMPHOCYTES # (AUTO) 0.4 X10'3 (1.1-4.8); LYMPHOCYTES % (AUTO) 2.5 % (21-51); MEAN CORPUSCULAR HEMOGLOBIN 32.7 PG (27.0-31.0); MEAN CORPUSCULAR HGB CONC 34.5 g/dL (33.0-36.5); MEAN CORPUSCULAR VOLUME 94.7 FL (78-98); MEAN PLATELET VOLUME 7.9 FL (7.4-10.4); MONOCYTES # (AUTO) 0.6 X10'3 (0-0.9); MONOCYTES % (AUTO) 3.7 % (2-12); NEUTROPHILS # (AUTO) 16.1 X10'3 (1.8-7.7); NEUTROPHILS % (AUTO) 93.7 % (42-75); PLATELET COUNT 338 X10'3 (140-440); RED BLOOD COUNT 2.57 X10'6 (4.70-6.10); RED CELL DISTRIBUTION WIDTH 19.1 % (11.5-14.5); WHITE BLOOD COUNT 17.2 X10'3 (4.5-11.0)
[2020-11-21 03:39] LABS: ALANINE AMINOTRANSFERASE 48 U/L (12-78); ALBUMIN 1.8 G/DL (3.4-5.0); ALBUMIN/GLOBULIN RATIO 0.5 (1.1-1.5); ALKALINE PHOSPHATASE 61 IU/L (46-116); ANION GAP 12 (8-16); ASPARTATE AMINO TRANSFERASE 43 U/L (10-37); BILIRUBIN,TOTAL 0.4 MG/DL (0.1-1.0); BLOOD UREA NITROGEN 35 MG/DL (7-18); BUN/CREATININE RATIO 32.4 (5.4-32.0); CALCIUM 7.6 MG/DL (8.5-10.1); CHLORIDE 105 MMOL/L (99-107); CREATINE KINASE 648 U/L (39-308); CREATININE 1.08 MG/DL (0.60-1.10); GLUCOSE 126 MG/DL (70-104); MAGNESIUM 1.9 MG/DL (1.5-2.4); PHOSPHORUS 3.8 MG/DL (2.3-4.5); POTASSIUM 3.4 MMOL/L (3.5-5.1); SODIUM 137 MMOL/L (135-145); TOTAL CARBON DIOXIDE 20.5 MMOL/L (24-32); TOTAL PROTEIN 5.7 G/DL (6.4-8.2); eGFR 67 ML/MIN
[2020-11-21] MEDS: dexmedetomidine/D5W 100mL 100 ML IV SCH ×4 (05:34→23:04)
[2020-11-21 06:03] LABS: ANISOCYTOSIS 2+; PLATELET ESTIMATE NORMAL
--- NOTE | 2020-11-21 06:24 | NUR ---
Problems reprioritized. Patient report given, questions answered & plan of care reviewed with Bing EVANS and Radha EVANS.
[2020-11-21] MEDS: levoTHYROXINE 75mcg tablet NG SCH (08:50)
[2020-11-21] MEDS: furosemide 40mg/4ml inj IV SCH ×3 (08:50→20:19)
[2020-11-21] MEDS: piperacillin/tazo 3.375gm/50ml 50 ML IV SCH ×3 (08:51→23:51)
[2020-11-21] MEDS: lactobacillus rhamnosus 10,000 MMU CELLS/CAPSULE NG SCH ×2 (08:51→19:34)
[2020-11-21] MEDS: folic acid 1mg tablet NG SCH (08:51)
[2020-11-21] MEDS: MULTIVIT-MIN/FERROUS GLUCONATE 9 MG/15 ML LIQUID NG SCH (08:51)
[2020-11-21] MEDS: chlordiazePOXIDE 5mg capsule NG SCH ×2 (08:51→19:34)
[2020-11-21] MEDS: famotidine 20mg tablet NG SCH (08:51)
[2020-11-21] MEDS: thiamine 100mg tablet NG SCH (08:52)
[2020-11-21] MEDS: QUEtiapine 25mg tablet NG SCH (08:52)
[2020-11-21] MEDS: aspirin 81mg tablet.DR PO SCH (08:52)
[2020-11-21] MEDS: allopurinol 100mg tablet NG SCH ×2 (08:52→19:41)
[2020-11-21] MEDS: lisinopril 10 MG tablet NG SCH (08:52)
[2020-11-21] MEDS: heparin, porcine 5000 units/ml vial SQ SCH ×3 (08:53→23:51)
[2020-11-21] MEDS: potassium Cl 40MEQ/250ML bag 270 ML IV PRN (08:53)
--- NOTE | 2020-11-21 18:20 | NUR ---
Patient in room CICU 2013. I have received report from Bing EVANS and had the opportunity to ask questions and assume patient care.
[2020-11-21] MEDS: acetaminophen 325mg tablet NG PRN (18:29)
[2020-11-21] MEDS: albumin (human) 25% 100 ML IV solution IV SCH (19:34)
[2020-11-21] MEDS: magnesium 4gm in 100ml NS 100 ML IV PRN (20:19)
[2020-11-21] MEDS: insulin glargine (Lantus) pen - multi-dose SQ SCH (21:00)
[2020-11-22] VITALS (24 sets, daily range): BP systolic 105–137; BP diastolic 51–92
[2020-11-22] MEDS: dexmedetomidine/D5W 100mL 100 ML IV SCH ×3 (02:58→14:31)
[2020-11-22] MEDS: methylPREDNISolone sod succ/PF 40mg inj. IV SCH ×4 (02:58→19:37)
[2020-11-22] MEDS: metoclopramide 5 mg/ml inj IV SCH ×4 (02:58→19:38)
[2020-11-22 03:05] LABS: BASOPHILS % (AUTO) 0 % (0-1); EOSINOPHILS % (AUTO) 0 % (0-6); HEMOGLOBIN 7.4 g/dl (14.0-17.9); LYMPHOCYTES # (AUTO) 0.4 X10'3 (1.1-4.8); LYMPHOCYTES % (AUTO) 3.2 % (21-51); MEAN CORPUSCULAR HEMOGLOBIN 32.8 PG (27.0-31.0); MEAN CORPUSCULAR HGB CONC 34.2 g/dL (33.0-36.5); MEAN CORPUSCULAR VOLUME 95.8 FL (78-98); MEAN PLATELET VOLUME 7.7 FL (7.4-10.4); MONOCYTES # (AUTO) 0.3 X10'3 (0-0.9); MONOCYTES % (AUTO) 2.8 % (2-12); NEUTROPHILS # (AUTO) 11.2 X10'3 (1.8-7.7); PLATELET COUNT 273 X10'3 (140-440); RED BLOOD COUNT 2.26 X10'6 (4.70-6.10); RED CELL DISTRIBUTION WIDTH 19.1 % (11.5-14.5); WHITE BLOOD COUNT 11.9 X10'3 (4.5-11.0)
[2020-11-22] MEDS: ipratropium/albuterol 3ml nebule NEB SCH ×6 (03:09→23:05)
[2020-11-22 03:15] LABS: ALANINE AMINOTRANSFERASE 39 U/L (12-78); ALBUMIN 2.2 G/DL (3.4-5.0); ALBUMIN/GLOBULIN RATIO 0.6 (1.1-1.5); ALKALINE PHOSPHATASE 57 IU/L (46-116); ANION GAP 13 (8-16); ASPARTATE AMINO TRANSFERASE 29 U/L (10-37); BILIRUBIN,TOTAL 0.6 MG/DL (0.1-1.0); CALCIUM 7.9 MG/DL (8.5-10.1); CHLORIDE 105 MMOL/L (99-107); CREATINE KINASE 498 U/L (39-308); GLUCOSE 145 MG/DL (70-104); MAGNESIUM 2.7 MG/DL (1.5-2.4); PHOSPHORUS 3.1 MG/DL (2.3-4.5); POTASSIUM 3.3 MMOL/L (3.5-5.1); PREALBUMIN 33.4 MG/DL (19-36); SODIUM 138 MMOL/L (135-145); TOTAL CARBON DIOXIDE 20.4 MMOL/L (24-32); TOTAL PROTEIN 5.7 G/DL (6.4-8.2); eGFR 66 ML/MIN
[2020-11-22 03:23] LABS: BLOOD UREA NITROGEN 38 MG/DL (7-18); BUN/CREATININE RATIO 34.5 (5.4-32.0)
[2020-11-22 03:36] LABS: HEMATOCRIT 21.6 % (42.0-52.0)
[2020-11-22 04:45] LABS: ABG BASE EXCESS -6.1 mmol/L (-2.0-2.0); ABG HCO3 16.1 mmol/L (22.0-26.0); ABG OXYGEN SATURATION 94.5 % (94-97); ABG PCO2 (T) 21.7 mmHg (35.0-48.0); ABG PO2 (T) 73.1 mmHg (75.0-100.0); ALLEN'S TEST POSITIVE; FCOHb 0.3 % (0.0-3.9); FMetHb 0.6 % (0.0-1.5); FO2Hb 93.6 % (94-97); PATIENT TEMPERATURE 37.1; PEEP 5 cm H2O; RESPIRATORY RATE 12 b/min; TIDAL VOLUME 400 mL; TOTAL HEMOGLOBIN 8.2 G/dl (14.0-18.0)
[2020-11-22] MEDS: potassium Cl 40MEQ/250ML bag 270 ML IV PRN (04:52)
[2020-11-22 05:55] LABS: PLATELET ESTIMATE NORMAL
[2020-11-22 05:58] LABS: ANISOCYTOSIS 2+; ELLIPTOCYTES FEW
--- NOTE | 2020-11-22 07:02 | NUR ---
Problems reprioritized. Patient report given, questions answered & plan of care reviewed with Whitney EVANS.
[2020-11-22] MEDS: piperacillin/tazo 3.375gm/50ml 50 ML IV SCH (07:20)
[2020-11-22] MEDS: albumin (human) 25% 100 ML IV solution IV SCH ×3 (07:21→19:57)
[2020-11-22] MEDS: furosemide 40mg/4ml inj IV SCH ×3 (07:34→20:27)
[2020-11-22] MEDS ORDERED: racepinephrine 11.25mg/0.5ml nebule IH PRN (07:40)
--- NOTE | 2020-11-22 07:43 | NUR ---
Dr. Durham at bedside, new order to extubate patient. RT Geronimo at bedside to perform Patient tolertated well, placed on high flow salter at 6lpm. SP02>92% Will continue to monitor.
[2020-11-22] MEDS: MULTIVIT-MIN/FERROUS GLUCONATE 9 MG/15 ML LIQUID NG SCH (09:28)
[2020-11-22] MEDS: QUEtiapine 25mg tablet NG SCH ×2 (09:28→19:37)
[2020-11-22] MEDS: heparin, porcine 5000 units/ml vial SQ SCH ×2 (09:28→16:26)
[2020-11-22] MEDS: allopurinol 100mg tablet NG SCH ×2 (09:28→19:37)
[2020-11-22] MEDS: lisinopril 10 MG tablet NG SCH (09:29)
[2020-11-22] MEDS: folic acid 1mg tablet NG SCH (09:29)
[2020-11-22] MEDS: famotidine 20mg tablet NG SCH (09:29)
[2020-11-22] MEDS: lactobacillus rhamnosus 10,000 MMU CELLS/CAPSULE NG SCH ×2 (09:30→19:37)
[2020-11-22] MEDS: levoTHYROXINE 75mcg tablet NG SCH (09:30)
[2020-11-22] MEDS: thiamine 100mg tablet NG SCH (09:30)
[2020-11-22] MEDS: chlordiazePOXIDE 5mg capsule NG SCH ×2 (09:31→19:37)
[2020-11-22] MEDS: aspirin 81mg tablet.DR PO SCH (09:31)
[2020-11-22] MEDS: fentaNYL/PF 50MCG/1 ML 2ML syringe IV PRN ×2 (09:45→16:26)
--- NOTE | 2020-11-22 11:55 | NUR ---
Reassessment: Pt extubated today, pending BSS with BUS OPERATOR per RN at critical care rounds. Remains on NGTF currently at 40 ml/hr, returning to goal following 450ml GRV until PO tolerance ensured per RN. Pt with DTI on heels per RN; wound care following and documented as stable per EMR. Last BM 11/20 receiving routine reglan, with no routine bowel care. Will continue to follow closely. Recommendations: 1) Diet advancement to heart healthy per BUS OPERATOR/ recs as medically indicated 2) If pt PO remains poor, continue NGTF until PO at least 50-65% average meals 3) Continuous TF via NG tube using Vital AF with goal rate of 80 mL/hr. Once at goal to provide 1920 mL total volume/day, 2304 kcal, 144 g protein, and 1557 mL water 4) Routine bowel care, promotility agent per MD 5) Scaled wt per Rx 6) Continue routine MVM with iron, Thiamine, and folic acid for EtOH hx Addendum: 11/22/20 at [address] Amended: Links added. Addendum: 11/22/20 at [address] agrees w/ above wireless internet installer note. Addendum: 11/23/20 at [address] CORRECTION: Pt not receiving TF. Diet has been advanced to MM5 with thin liquids today per f/u BSS with ST.
[2020-11-22] MEDS: ampicillin inj 1 GM in normal saline 100ml IV soln 100 ML IV SCH ×2 (13:49→19:57)
--- NOTE | 2020-11-22 18:25 | NUR ---
Patient in room CICU 2013. I have received report from Whitney EVANS and had the opportunity to ask questions and assume patient care.
[2020-11-22] MEDS ORDERED: ketorolac tromethamine 15mg/ml inj. IV ONE ×2 (18:55→19:10)
[2020-11-22] MEDS ORDERED: ketorolac tromethamine 15mg/ml inj. IM ONE (18:55)
[2020-11-22] MEDS: gabapentin 300mg capsule PO SCH (19:37)
[2020-11-22] MEDS: insulin glargine (Lantus) pen - multi-dose SQ SCH (21:00)
[2020-11-23] VITALS (28 sets, daily range): BP systolic 94–150; BP diastolic 53–101
[2020-11-23] MEDS: dexmedetomidine/D5W 100mL 100 ML IV SCH (01:54)
[2020-11-23] MEDS: metoclopramide 5 mg/ml inj IV SCH ×4 (02:34→20:51)
[2020-11-23] MEDS: heparin, porcine 5000 units/ml vial SQ SCH ×3 (02:34→17:19)
[2020-11-23] MEDS: methylPREDNISolone sod succ/PF 40mg inj. IV SCH ×4 (02:34→20:51)
[2020-11-23] MEDS: ampicillin inj 1 GM in normal saline 100ml IV soln 100 ML IV SCH ×2 (02:36→08:40)
[2020-11-23] MEDS: ipratropium/albuterol 3ml nebule NEB SCH ×6 (03:45→22:56)
[2020-11-23 03:56] LABS: BASOPHILS % (AUTO) 0 % (0-1); EOSINOPHILS % (AUTO) 0 % (0-6); LYMPHOCYTES # (AUTO) 0.2 X10'3 (1.1-4.8); LYMPHOCYTES % (AUTO) 2.1 % (21-51); MEAN CORPUSCULAR HEMOGLOBIN 32.5 PG (27.0-31.0); MEAN CORPUSCULAR HGB CONC 33.5 g/dL (33.0-36.5); MEAN CORPUSCULAR VOLUME 97.1 FL (78-98); MEAN PLATELET VOLUME 7.7 FL (7.4-10.4); MONOCYTES # (AUTO) 0.3 X10'3 (0-0.9); MONOCYTES % (AUTO) 2.7 % (2-12); NEUTROPHILS % (AUTO) 95.2 % (42-75); PLATELET COUNT 266 X10'3 (140-440); RED BLOOD COUNT 2.01 X10'6 (4.70-6.10); RED CELL DISTRIBUTION WIDTH 19.3 % (11.5-14.5); WHITE BLOOD COUNT 11.5 X10'3 (4.5-11.0)
[2020-11-23 04:09] LABS: ALANINE AMINOTRANSFERASE 37 U/L (12-78); ALBUMIN 2.5 G/DL (3.4-5.0); ALBUMIN/GLOBULIN RATIO 0.8 (1.1-1.5); ALKALINE PHOSPHATASE 49 IU/L (46-116); ANION GAP 12 (8-16); ASPARTATE AMINO TRANSFERASE 32 U/L (10-37); BILIRUBIN,TOTAL 0.5 MG/DL (0.1-1.0); BLOOD UREA NITROGEN 41 MG/DL (7-18); CHLORIDE 109 MMOL/L (99-107); CREATINE KINASE 427 U/L (39-308); GLUCOSE 118 MG/DL (70-104); PHOSPHORUS 3.3 MG/DL (2.3-4.5); POTASSIUM 3.3 MMOL/L (3.5-5.1); SODIUM 143 MMOL/L (135-145); TOTAL CARBON DIOXIDE 21.6 MMOL/L (24-32); TOTAL PROTEIN 5.5 G/DL (6.4-8.2); eGFR 74 ML/MIN
[2020-11-23 04:11] LABS: HEMATOCRIT 19.5 % (42.0-52.0); HEMOGLOBIN 6.6 g/dl (14.0-17.9)
[2020-11-23 05:35] LABS: OCCULT BLOOD STOOL NEGATIVE (Neg)
[2020-11-23] MEDS: potassium Cl 40MEQ/250ML bag 270 ML IV PRN (05:59)
--- NOTE | 2020-11-23 06:45 | NUR ---
Problems reprioritized. Patient report given, questions answered & plan of care reviewed with Tsering EVANS.
[2020-11-23] MEDS: MULTIVIT-MIN/FERROUS GLUCONATE 9 MG/15 ML LIQUID NG SCH (08:38)
[2020-11-23] MEDS: allopurinol 100mg tablet NG SCH ×2 (08:39→20:52)
[2020-11-23] MEDS: chlordiazePOXIDE 5mg capsule NG SCH ×2 (08:39→20:51)
[2020-11-23] MEDS: lactobacillus rhamnosus 10,000 MMU CELLS/CAPSULE NG SCH ×2 (08:39→20:51)
[2020-11-23] MEDS: gabapentin 300mg capsule PO SCH ×2 (08:39→20:51)
[2020-11-23] MEDS: levoTHYROXINE 75mcg tablet NG SCH (08:39)
[2020-11-23] MEDS: thiamine 100mg tablet NG SCH (08:39)
[2020-11-23] MEDS: QUEtiapine 25mg tablet NG SCH ×2 (08:39→20:52)
[2020-11-23] MEDS: aspirin 81mg tablet.DR PO SCH (08:39)
[2020-11-23] MEDS: famotidine 20mg tablet NG SCH (08:40)
[2020-11-23] MEDS: lisinopril 10 MG tablet NG SCH (08:40)
[2020-11-23] MEDS: folic acid 1mg tablet NG SCH (08:40)
[2020-11-23] MEDS: albumin (human) 25% 100 ML IV solution IV SCH ×2 (08:53→20:51)
[2020-11-23] MEDS: furosemide 40mg/4ml inj IV SCH ×2 (10:15→20:51)
[2020-11-23] MEDS: acetaminophen 325mg tablet NG PRN (17:30)
[2020-11-23] MEDS: insulin glargine (Lantus) pen - multi-dose SQ SCH (21:00)
[2020-11-24] VITALS (23 sets, daily range): BP systolic 132–180; BP diastolic 86–109
[2020-11-24] MEDS: heparin, porcine 5000 units/ml vial SQ SCH ×3 (00:56→17:18)
[2020-11-24] MEDS: methylPREDNISolone sod succ/PF 40mg inj. IV SCH ×3 (02:46→20:35)
[2020-11-24] MEDS: metoclopramide 5 mg/ml inj IV SCH ×4 (02:46→20:35)
[2020-11-24] MEDS: ipratropium/albuterol 3ml nebule NEB SCH ×6 (03:11→23:23)
[2020-11-24] MEDS: LORazepam 2 mg/ml vial IV PRN (04:02)
[2020-11-24 04:30] LABS: BASOPHILS % (AUTO) 0.1 % (0-1); EOSINOPHILS % (AUTO) 0 % (0-6); HEMATOCRIT 26.9 % (42.0-52.0); HEMOGLOBIN 9.2 g/dl (14.0-17.9); LYMPHOCYTES # (AUTO) 0.4 X10'3 (1.1-4.8); LYMPHOCYTES % (AUTO) 2.4 % (21-51); MEAN CORPUSCULAR HEMOGLOBIN 32.9 PG (27.0-31.0); MEAN CORPUSCULAR HGB CONC 34.1 g/dL (33.0-36.5); MEAN CORPUSCULAR VOLUME 96.6 FL (78-98); MEAN PLATELET VOLUME 7.5 FL (7.4-10.4); MONOCYTES # (AUTO) 0.3 X10'3 (0-0.9); MONOCYTES % (AUTO) 2.2 % (2-12); NEUTROPHILS # (AUTO) 14.9 X10'3 (1.8-7.7); NEUTROPHILS % (AUTO) 95.3 % (42-75); PLATELET COUNT 284 X10'3 (140-440); RED BLOOD COUNT 2.79 X10'6 (4.70-6.10); WHITE BLOOD COUNT 15.6 X10'3 (4.5-11.0)
[2020-11-24] MEDS ORDERED: LORazepam 2 mg/ml vial IV PRN (04:50)
[2020-11-24] MEDS ORDERED: LORazepam 2 mg/ml vial ONE (04:52)
[2020-11-24] MEDS ORDERED: acetaminophen 325mg tablet PO PRN (04:55)
[2020-11-24 05:00] LABS: ALANINE AMINOTRANSFERASE 46 U/L (12-78); ALBUMIN 3.4 G/DL (3.4-5.0); ALKALINE PHOSPHATASE 57 IU/L (46-116); ANION GAP 14 (8-16); ASPARTATE AMINO TRANSFERASE 33 U/L (10-37); BILIRUBIN,TOTAL 0.8 MG/DL (0.1-1.0); BLOOD UREA NITROGEN 39 MG/DL (7-18); BUN/CREATININE RATIO 42.4 (5.4-32.0); CALCIUM 8.7 MG/DL (8.5-10.1); CHLORIDE 109 MMOL/L (99-107); CREATINE KINASE 353 U/L (39-308); CREATININE 0.92 MG/DL (0.60-1.10); GLUCOSE 98 MG/DL (70-104); PHOSPHORUS 2.9 MG/DL (2.3-4.5); POTASSIUM 3.7 MMOL/L (3.5-5.1); SODIUM 145 MMOL/L (135-145); TOTAL CARBON DIOXIDE 22.1 MMOL/L (24-32); TOTAL PROTEIN 6.8 G/DL (6.4-8.2); eGFR 81 ML/MIN
--- NOTE | 2020-11-24 05:00 | NUR ---
RN Note -Pt exhibiting tremors, confusion and agitation. Went into a-fib, rate in 120s. Gave Ativan as ordered with no effect. Dr. Morales rounding, pt desaturating. Orders received.
[2020-11-24 05:12] LABS: ABG BASE EXCESS -3.2 mmol/L (-2.0-2.0); ABG HCO3 19.3 mmol/L (22.0-26.0); ABG OXYGEN SATURATION 87.1 % (94-97); ABG PCO2 (T) 26.4 mmHg (35.0-48.0); ABG PO2 (T) 49.7 mmHg (75.0-100.0); ALLEN'S TEST POSITIVE; FCOHb 0.3 % (0.0-3.9); FLOW 15 L/min; FMetHb 0.3 % (0.0-1.5); FO2Hb 86.6 % (94-97); PATIENT TEMPERATURE 36.9; TOTAL HEMOGLOBIN 9.9 G/dl (14.0-18.0)
[2020-11-24 08:00] LABS: MAGNESIUM 1.8 MG/DL (1.5-2.4)
[2020-11-24] MEDS ORDERED: chlordiazePOXIDE 5mg capsule PO SCH (08:00)
[2020-11-24] MEDS ORDERED: lisinopril 10 MG tablet PO SCH (08:00)
[2020-11-24] MEDS: magnesium 2GM in 50ml NS 50 ML IV PRN (08:11)
[2020-11-24] MEDS: MULTIVIT-MIN/FERROUS GLUCONATE 9 MG/15 ML LIQUID NG SCH (08:11)
[2020-11-24] MEDS: folic acid 1mg tablet PO SCH (08:12)
[2020-11-24] MEDS: aspirin 81mg tablet.DR PO SCH (08:13)
[2020-11-24] MEDS: famotidine 20mg tablet PO SCH (08:13)
[2020-11-24] MEDS: levoTHYROXINE 75mcg tablet PO SCH (08:13)
[2020-11-24] MEDS: QUEtiapine 25mg tablet NG SCH (08:13)
[2020-11-24] MEDS: allopurinol 100mg tablet PO SCH ×2 (08:14→20:00)
[2020-11-24] MEDS: gabapentin 300mg capsule PO SCH ×2 (08:14→20:00)
[2020-11-24] MEDS: thiamine 100mg tablet PO SCH (08:14)
[2020-11-24] MEDS: lactobacillus rhamnosus 10,000 MMU CELLS/CAPSULE NG SCH ×2 (08:15→20:00)
[2020-11-24] MEDS ORDERED: potassium Cl 40MEQ/1/2NS 520ml 520 ML IV PRN (13:30)
[2020-11-24] MEDS ORDERED: potassium Cl 20mEq/100mL bag 100 ML IV PRN (13:30)
[2020-11-24] MEDS ORDERED: potassium Cl 40MEQ/250ML bag 250 ML IV PRN (13:30)
[2020-11-24] MEDS ORDERED: potassium CL 10mEq/100ml bag 100 ML IV PRN (13:30)
[2020-11-24] MEDS ORDERED: potassium Cl 20 mEq SR tablet PO PRN (13:30)
[2020-11-24] MEDS ORDERED: midazolam 1 mg/ML 2ml injection IV PRN (13:35)
[2020-11-24] MEDS: Potassium Cl inj 40 MEQ in normal saline 250ml IV soln 250 ML IV PRN (14:00)
[2020-11-24 15:31] LABS: C DIFFICILE TOXINS A&B NEGATIVE (Neg)
[2020-11-24 15:32] LABS: C DIFF ANTIGEN NEGATIVE (NEGATIVE); C DIFF SPECIMEN=DIARRHEA? ACCEPTABLE
--- NOTE | 2020-11-24 19:00 | NUR ---
RN Note -MD Communication Called Dr. Durham regarding concern that pt is too obtunded to swallow PO meds. Hold PO meds for now per MD
[2020-11-24] MEDS: insulin glargine (Lantus) pen - multi-dose SQ SCH (19:56)
--- NOTE | 2020-11-24 20:30 | NUR ---
RN Note -Pt is having tremors, is hypertensive, is pulling off oxygen and monitoring equipment. PRN Versed given.
[2020-11-24] MEDS ORDERED: QUEtiapine 25mg tablet PO SCH (21:00)
--- NOTE | 2020-11-24 21:25 | NUR ---
RN Note -MD Communication Pt behavior escalating in spite of versed. Pt is hypertensive, combative, tachycardic and yelling. Received order to restart Precedex.
[2020-11-24] MEDS: dexmedetomidine/D5W 100mL 100 ML IV SCH (22:11)
[2020-11-25] VITALS (24 sets, daily range): BP systolic 95–177; BP diastolic 55–124
[2020-11-25] MEDS: heparin, porcine 5000 units/ml vial SQ SCH ×3 (00:52→17:00)
[2020-11-25] MEDS: metoclopramide 5 mg/ml inj IV SCH ×4 (02:00→20:56)
[2020-11-25 03:02] LABS: BASOPHILS % (AUTO) 0.2 % (0-1); EOSINOPHILS % (AUTO) 0.1 % (0-6); HEMATOCRIT 26.8 % (42.0-52.0); HEMOGLOBIN 9.1 g/dl (14.0-17.9); LYMPHOCYTES # (AUTO) 0.6 X10'3 (1.1-4.8); LYMPHOCYTES % (AUTO) 6.4 % (21-51); MEAN CORPUSCULAR HEMOGLOBIN 33.2 PG (27.0-31.0); MEAN CORPUSCULAR VOLUME 97.6 FL (78-98); MEAN PLATELET VOLUME 7.2 FL (7.4-10.4); MONOCYTES # (AUTO) 0.2 X10'3 (0-0.9); MONOCYTES % (AUTO) 2.2 % (2-12); NEUTROPHILS # (AUTO) 9.2 X10'3 (1.8-7.7); NEUTROPHILS % (AUTO) 91.1 % (42-75); PLATELET COUNT 237 X10'3 (140-440); RED BLOOD COUNT 2.74 X10'6 (4.70-6.10); RED CELL DISTRIBUTION WIDTH 18.6 % (11.5-14.5); WHITE BLOOD COUNT 10.1 X10'3 (4.5-11.0)
[2020-11-25] MEDS: ipratropium/albuterol 3ml nebule NEB SCH ×6 (03:07→23:41)
[2020-11-25 03:14] LABS: ALANINE AMINOTRANSFERASE 44 U/L (12-78); ALBUMIN 2.9 G/DL (3.4-5.0); ALBUMIN/GLOBULIN RATIO 0.9 (1.1-1.5); ALKALINE PHOSPHATASE 60 IU/L (46-116); ANION GAP 12 (8-16); ASPARTATE AMINO TRANSFERASE 30 U/L (10-37); BILIRUBIN,TOTAL 0.8 MG/DL (0.1-1.0); BLOOD UREA NITROGEN 39 MG/DL (7-18); BUN/CREATININE RATIO 50.6 (5.4-32.0); CALCIUM 8.4 MG/DL (8.5-10.1); CHLORIDE 111 MMOL/L (99-107); CREATINE KINASE 231 U/L (39-308); CREATININE 0.77 MG/DL (0.60-1.10); GLUCOSE 84 MG/DL (70-104); PHOSPHORUS 2.3 MG/DL (2.3-4.5); POTASSIUM 3.8 MMOL/L (3.5-5.1); SODIUM 145 MMOL/L (135-145); TOTAL CARBON DIOXIDE 22.2 MMOL/L (24-32); TOTAL PROTEIN 6.3 G/DL (6.4-8.2); eGFR > 90 ML/MIN
--- NOTE | 2020-11-25 06:52 | NUR ---
Patient in room CICU 2013. I have received report from DIMITRIOS EVANS and had the opportunity to ask questions and assume patient care.
--- NOTE | 2020-11-25 06:53 | NUR ---
Patient in room CICU 2013. I have received report from NATHAN Mcgraw and had the opportunity to ask questions and assume patient care.
[2020-11-25] MEDS ORDERED: magnesium 2GM in 50ml NS 50 ML IV ONE (07:45)
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
[2020-11-25] MEDS ORDERED: lisinopril 10 MG tablet PO SCH (08:00)
[2020-11-25] MEDS: methylPREDNISolone sod succ/PF 40mg inj. IV SCH (08:42)
[2020-11-25] MEDS: dexmedetomidine/D5W 100mL 100 ML IV SCH ×2 (09:41→22:45)
--- NOTE | 2020-11-25 09:51 | NUR ---
F/u 11/25: TF held 11/22 w/ NG removed. Pt PO remains poor ~25% avg 3 days MM5 diet per BEADER recs not meeting needs. Remains ALOC AOx1 receiving thiamin, folic, MVI for etoh. Pt currently NPO this AM given increased ALOC threatening RT pulling at lines and oxygen per EMR. Rectal tube in place 450ml output receiving routine reglan. IF unsafe for PO may benefit from alternative nutrition to meet needs. Will continue to monitor for BEADER f/u recs and pt PO capabilities. Recommendations: 1) Continue MM5/thin diet per BEADER/MD recs 2) IF unsafe for PO per BEADER; consider resuming NGTF to meet needs 3) Routine bowel care per rx, promotility agent per MD 4) Scaled wt per Rx 5) Continue routine MVM with iron, Thiamine, and folic acid for EtOH hx Addendum: 11/25/20 at [address] Amended: Links added.
--- NOTE | 2020-11-25 11:17 | NUR ---
TF Consult: Pt pending NG placement w/ NGTF to start today since obtunded per surgical garment inspector pending f/u SECURITY SYSTEMS TECHNICIAN BSS tomorrow. TF recs below; will monitor for tolerance. Recommendations: 1) Continuous TF using Vital AF at 80 mL/hr goal; to provide 1920 mL total volume/day, 2304 kcal, 144 g protein, and 1557 mL water 2) additional water flush 150ml Q4 3) PALB Q /; daily wts 4) Routine bowel care per rx, promotility agent per MD 5) Continue routine MVM with iron, Thiamine, and folic acid for EtOH hx 6) diet advancement as medically indicated to regular per SECURITY SYSTEMS TECHNICIAN/MD recs Addendum: 11/25/20 at [address] Amended: Links added.
[2020-11-25] MEDS: allopurinol 100mg tablet PO SCH (11:44)
[2020-11-25] MEDS: thiamine 100mg tablet PO SCH (11:44)
[2020-11-25] MEDS: famotidine 20mg tablet PO SCH (11:45)
[2020-11-25] MEDS: aspirin 81mg tablet.DR PO SCH (11:45)
[2020-11-25] MEDS: gabapentin 300mg capsule PO SCH (11:45)
[2020-11-25] MEDS: lactobacillus rhamnosus 10,000 MMU CELLS/CAPSULE NG SCH ×2 (11:45→20:56)
[2020-11-25] MEDS: folic acid 1mg tablet PO SCH (11:46)
[2020-11-25] MEDS: MULTIVIT-MIN/FERROUS GLUCONATE 9 MG/15 ML LIQUID NG SCH (11:46)
[2020-11-25] MEDS: levoTHYROXINE 75mcg tablet PO SCH (11:53)
[2020-11-25] MEDS ORDERED: acetaminophen 325mg tablet NG PRN (13:17)
[2020-11-25] MEDS ORDERED: famotidine 20mg tablet NG SCH (13:18)
[2020-11-25] MEDS ORDERED: folic acid 1mg tablet NG SCH (13:19)
[2020-11-25] MEDS ORDERED: insulin regular, human U-100 3ml vial - multi-dose SQ SCH (13:20)
[2020-11-25] MEDS ORDERED: lisinopril 10 MG tablet NG SCH (13:21)
[2020-11-25] MEDS ORDERED: levoTHYROXINE 75mcg tablet NG SCH (13:21)
[2020-11-25] MEDS ORDERED: QUEtiapine 25mg tablet NG SCH ×2 (13:22→21:00)
[2020-11-25] MEDS ORDERED: potassium Cl 20 mEq SR tablet NG PRN (13:22)
[2020-11-25] MEDS ORDERED: thiamine 100mg tablet NG SCH (13:23)
--- NOTE | 2020-11-25 18:18 | NUR ---
Problems reprioritized. Patient report given, questions answered & plan of care reviewed with NATHAN Olson.
[2020-11-25] MEDS: gabapentin 300mg capsule NG SCH (20:55)
[2020-11-25] MEDS: guaiFENesin ER 600mg tablet PO SCH (20:55)
[2020-11-25] MEDS: allopurinol 100mg tablet NG SCH (20:56)
[2020-11-25] MEDS: insulin glargine (Lantus) pen - multi-dose SQ SCH (21:00)
[2020-11-26] VITALS (16 sets, daily range): BP systolic 90–163; BP diastolic 65–106
[2020-11-26] MEDS: heparin, porcine 5000 units/ml vial SQ SCH ×3 (00:44→16:15)
[2020-11-26] MEDS: metoclopramide 5 mg/ml inj IV SCH ×4 (02:00→20:53)
[2020-11-26] MEDS: ipratropium/albuterol 3ml nebule NEB SCH ×6 (02:58→23:36)
[2020-11-26 04:58] LABS: BASOPHILS % (AUTO) 0.1 % (0-1); EOSINOPHILS # (AUTO) 0.1 X10'3 (0-0.9); EOSINOPHILS % (AUTO) 0.9 % (0-6); HEMATOCRIT 27.1 % (42.0-52.0); HEMOGLOBIN 9.1 g/dl (14.0-17.9); LYMPHOCYTES # (AUTO) 0.7 X10'3 (1.1-4.8); LYMPHOCYTES % (AUTO) 9.2 % (21-51); MEAN CORPUSCULAR HEMOGLOBIN 32.9 PG (27.0-31.0); MEAN CORPUSCULAR HGB CONC 33.6 g/dL (33.0-36.5); MEAN CORPUSCULAR VOLUME 98.1 FL (78-98); MEAN PLATELET VOLUME 7.6 FL (7.4-10.4); MONOCYTES # (AUTO) 0.1 X10'3 (0-0.9); NEUTROPHILS # (AUTO) 6.3 X10'3 (1.8-7.7); NEUTROPHILS % (AUTO) 87.8 % (42-75); PLATELET COUNT 213 X10'3 (140-440); RED BLOOD COUNT 2.76 X10'6 (4.70-6.10); RED CELL DISTRIBUTION WIDTH 18.1 % (11.5-14.5); WHITE BLOOD COUNT 7.1 X10'3 (4.5-11.0)
[2020-11-26] MEDS ORDERED: aspirin 81mg tab.chew NG SCH (08:00)
[2020-11-26 08:34] LABS: BASOPHILS % (AUTO) 0.4 % (0-1); EOSINOPHILS # (AUTO) 0.1 X10'3 (0-0.9); EOSINOPHILS % (AUTO) 1.6 % (0-6); HEMATOCRIT 27.2 % (42.0-52.0); HEMOGLOBIN 9.2 g/dl (14.0-17.9); LYMPHOCYTES # (AUTO) 0.7 X10'3 (1.1-4.8); LYMPHOCYTES % (AUTO) 9.9 % (21-51); MEAN CORPUSCULAR HEMOGLOBIN 32.7 PG (27.0-31.0); MEAN CORPUSCULAR HGB CONC 33.8 g/dL (33.0-36.5); MEAN CORPUSCULAR VOLUME 96.8 FL (78-98); MEAN PLATELET VOLUME 6.9 FL (7.4-10.4); MONOCYTES # (AUTO) 0.2 X10'3 (0-0.9); MONOCYTES % (AUTO) 2.4 % (2-12); NEUTROPHILS % (AUTO) 85.7 % (42-75); PLATELET COUNT 216 X10'3 (140-440); RED BLOOD COUNT 2.81 X10'6 (4.70-6.10); RED CELL DISTRIBUTION WIDTH 17.6 % (11.5-14.5)
[2020-11-26] MEDS: dexmedetomidine/D5W 100mL 100 ML IV SCH (08:37)
[2020-11-26 08:57] LABS: ALANINE AMINOTRANSFERASE 40 U/L (12-78); ALBUMIN 2.7 G/DL (3.4-5.0); ALBUMIN/GLOBULIN RATIO 0.8 (1.1-1.5); ALKALINE PHOSPHATASE 62 IU/L (46-116); ANION GAP 8 (8-16); ASPARTATE AMINO TRANSFERASE 28 U/L (10-37); BILIRUBIN,TOTAL 0.9 MG/DL (0.1-1.0); BLOOD UREA NITROGEN 36 MG/DL (7-18); CALCIUM 8.2 MG/DL (8.5-10.1); CHLORIDE 110 MMOL/L (99-107); GLUCOSE 83 MG/DL (70-104); POTASSIUM 3.5 MMOL/L (3.5-5.1); SODIUM 142 MMOL/L (135-145); TOTAL CARBON DIOXIDE 23.7 MMOL/L (24-32); TOTAL PROTEIN 6.1 G/DL (6.4-8.2); eGFR > 90 ML/MIN
[2020-11-26] MEDS: gabapentin 300mg capsule NG SCH (09:19)
[2020-11-26] MEDS: methylPREDNISolone sod succ/PF 40mg inj. IV SCH (09:19)
[2020-11-26] MEDS: MULTIVIT-MIN/FERROUS GLUCONATE 9 MG/15 ML LIQUID NG SCH (09:19)
[2020-11-26] MEDS: allopurinol 100mg tablet NG SCH (09:20)
[2020-11-26] MEDS: quetiapine 100mg tablet PO SCH ×2 (09:20→20:53)
[2020-11-26] MEDS: guaiFENesin ER 600mg tablet PO SCH ×2 (09:20→20:53)
[2020-11-26] MEDS: lactobacillus rhamnosus 10,000 MMU CELLS/CAPSULE NG SCH (09:21)
[2020-11-26 10:03] LABS: TRIGLYCERIDES 183 MG/DL (20-135)
--- NOTE | 2020-11-26 10:57 | NUR ---
F/u: Pt returned to MM5/thin diet per GAS STATION CLERK recs and NG never placed w/ TF not started per EMR. Given ALOC and poor PO hx will recommend ensure enlive TIDWM for additional kcals/protein in hopes of better liquid PO acceptance. Will continue to monitor. Recommendations: 1) Continue MM5/thin diet per GAS STATION CLERK/MD recs; encourage PO 2) ensure enlive TIDWM; pending MD verification in EMR 3) Routine bowel care per rx, promotility agent per MD 4) Continue routine MVM with iron, Thiamine, and folic acid for EtOH hx 5) IF prolonged poor PO persists r/t ALOC consider alternative nutrition to meet needs Addendum: 11/26/20 at [address] Amended: Links added.
[2020-11-26] MEDS ORDERED: dextrose ORAL solution 15 GM/59 ML bottle PO PRN ×2 (11:34→11:35)
[2020-11-26] MEDS ORDERED: MULTIVIT-MIN/FERROUS GLUCONATE 9 MG/15 ML LIQUID PO SCH (11:38)
[2020-11-26] MEDS ORDERED: Neutra Phos packet PO PRN (11:39)
[2020-11-26] MEDS ORDERED: amiodarone 150mg/dext, iso-os 100 ML IV ONE (15:45)
[2020-11-26] MEDS: amiodarone/D5 360MG/200ML BAG 200 ML IV SCH ×2 (16:14→22:05)
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
[2020-11-26] MEDS ORDERED: LORazepam 2 mg/ml vial IV PRN (18:30)
--- NOTE | 2020-11-26 18:35 | NUR ---
Problems reprioritized. Patient report given, questions answered & plan of care reviewed with Annie EVANS.
[2020-11-26] MEDS: gabapentin 300mg capsule PO SCH (20:53)
[2020-11-26] MEDS: lactobacillus rhamnosus 10,000 MMU CELLS/CAPSULE PO SCH (20:53)
[2020-11-26] MEDS: allopurinol 100mg tablet PO SCH (20:54)
[2020-11-26] MEDS: insulin glargine (Lantus) pen - multi-dose SQ SCH (21:00)
[2020-11-26] MEDS: potassium Cl 20 mEq SR tablet PO PRN (22:02)
[2020-11-27] VITALS (8 sets, daily range): BP systolic 108–169; BP diastolic 72–103
[2020-11-27] MEDS: LORazepam 2 mg/ml vial IV PRN ×3 (01:02→19:28)
[2020-11-27] MEDS: metoclopramide 5 mg/ml inj IV SCH ×4 (01:02→19:28)
[2020-11-27] MEDS: heparin, porcine 5000 units/ml vial SQ SCH ×3 (01:03→16:07)
[2020-11-27 02:28] LABS: BASOPHILS % (AUTO) 0.1 % (0-1); EOSINOPHILS % (AUTO) 0.4 % (0-6); HEMATOCRIT 23.1 % (42.0-52.0); HEMOGLOBIN 7.9 g/dl (14.0-17.9); LYMPHOCYTES # (AUTO) 0.5 X10'3 (1.1-4.8); LYMPHOCYTES % (AUTO) 8.7 % (21-51); MEAN CORPUSCULAR HEMOGLOBIN 33.4 PG (27.0-31.0); MEAN CORPUSCULAR HGB CONC 34.3 g/dL (33.0-36.5); MEAN CORPUSCULAR VOLUME 97.4 FL (78-98); MEAN PLATELET VOLUME 6.8 FL (7.4-10.4); MONOCYTES # (AUTO) 0.2 X10'3 (0-0.9); MONOCYTES % (AUTO) 3.4 % (2-12); NEUTROPHILS # (AUTO) 4.7 X10'3 (1.8-7.7); NEUTROPHILS % (AUTO) 87.4 % (42-75); PLATELET COUNT 209 X10'3 (140-440); RED BLOOD COUNT 2.37 X10'6 (4.70-6.10); RED CELL DISTRIBUTION WIDTH 18.3 % (11.5-14.5); WHITE BLOOD COUNT 5.4 X10'3 (4.5-11.0)
--- NOTE | 2020-11-27 02:30 | NUR ---
SINUS RHYTHM Patient converted to sinus rhythm, MD Cannon aware. No new orders. Will continue to monitor.
[2020-11-27 02:39] LABS: ANION GAP 10 (8-16); CHLORIDE 108 MMOL/L (99-107); GLUCOSE 117 MG/DL (70-104); POTASSIUM 4.3 MMOL/L (3.5-5.1); SODIUM 140 MMOL/L (135-145); TOTAL CARBON DIOXIDE 21.6 MMOL/L (24-32)
[2020-11-27 02:40] LABS: ALBUMIN 2.6 G/DL (3.4-5.0); BLOOD UREA NITROGEN 41 MG/DL (7-18); CREATININE 0.82 MG/DL (0.60-1.10); TRIGLYCERIDES 140 MG/DL (20-135); eGFR > 90 ML/MIN
[2020-11-27] MEDS: ipratropium/albuterol 3ml nebule NEB SCH ×6 (02:58→23:00)
[2020-11-27] MEDS: amiodarone/D5 360MG/200ML BAG 200 ML IV SCH ×3 (03:45→15:25)
--- NOTE | 2020-11-27 04:07 | NUR ---
Amiodarone Stopped Heart rate in the low 50s, MD Cannon notified and ordered to stop the Amiodarone drip. Will continue to monitor.
--- NOTE | 2020-11-27 06:15 | NUR ---
Problems reprioritized. Patient report given, questions answered & plan of care reviewed with Silvia EVANS.
[2020-11-27] MEDS: methylPREDNISolone sod succ/PF 40mg inj. IV SCH (08:16)
[2020-11-27] MEDS: aspirin 81mg tab.chew PO SCH (08:17)
[2020-11-27] MEDS: guaiFENesin ER 600mg tablet PO SCH ×2 (08:17→19:27)
[2020-11-27] MEDS: multivitamins, therapeutics tablet PO SCH (08:17)
[2020-11-27] MEDS: quetiapine 100mg tablet PO SCH ×2 (08:17→19:27)
[2020-11-27] MEDS: famotidine 20mg tablet PO SCH (08:17)
[2020-11-27] MEDS: levoTHYROXINE 75mcg tablet PO SCH (08:17)
[2020-11-27] MEDS: gabapentin 300mg capsule PO SCH ×2 (08:18→19:28)
[2020-11-27] MEDS: lactobacillus rhamnosus 10,000 MMU CELLS/CAPSULE PO SCH ×2 (08:18→19:27)
[2020-11-27] MEDS: allopurinol 100mg tablet PO SCH ×2 (08:19→19:27)
[2020-11-27] MEDS: folic acid 1mg tablet PO SCH (08:19)
[2020-11-27] MEDS: lisinopril 10 MG tablet PO SCH (08:19)
[2020-11-27] MEDS: thiamine 100mg tablet PO SCH (08:23)
[2020-11-27] MEDS: insulin glargine (Lantus) pen - multi-dose SQ SCH (21:00)
[2020-11-28] MEDS: heparin, porcine 5000 units/ml vial SQ SCH ×2 (00:37→07:49)
[2020-11-28 02:00] VITALS: BP 130/91
[2020-11-28] MEDS: metoclopramide 5 mg/ml inj IV SCH ×4 (02:22→19:52)
[2020-11-28] MEDS: ipratropium/albuterol 3ml nebule NEB SCH ×6 (02:38→22:53)
[2020-11-28 03:26] LABS: BASOPHILS % (AUTO) 0.1 % (0-1); EOSINOPHILS # (AUTO) 0.1 X10'3 (0-0.9); EOSINOPHILS % (AUTO) 1.6 % (0-6); HEMATOCRIT 26.8 % (42.0-52.0); LYMPHOCYTES # (AUTO) 0.6 X10'3 (1.1-4.8); LYMPHOCYTES % (AUTO) 12.7 % (21-51); MEAN CORPUSCULAR HGB CONC 33.7 g/dL (33.0-36.5); MEAN CORPUSCULAR VOLUME 97.8 FL (78-98); MEAN PLATELET VOLUME 7.3 FL (7.4-10.4); MONOCYTES # (AUTO) 0.2 X10'3 (0-0.9); NEUTROPHILS # (AUTO) 3.6 X10'3 (1.8-7.7); NEUTROPHILS % (AUTO) 81.6 % (42-75); PLATELET COUNT 204 X10'3 (140-440); RED BLOOD COUNT 2.74 X10'6 (4.70-6.10); RED CELL DISTRIBUTION WIDTH 17.9 % (11.5-14.5); WHITE BLOOD COUNT 4.4 X10'3 (4.5-11.0)
[2020-11-28 03:40] LABS: ALANINE AMINOTRANSFERASE 42 U/L (12-78); ALBUMIN 2.9 G/DL (3.4-5.0); ALBUMIN/GLOBULIN RATIO 0.8 (1.1-1.5); ALKALINE PHOSPHATASE 66 IU/L (46-116); ANION GAP 11 (8-16); ASPARTATE AMINO TRANSFERASE 27 U/L (10-37); BILIRUBIN,TOTAL 0.9 MG/DL (0.1-1.0); BLOOD UREA NITROGEN 34 MG/DL (7-18); CALCIUM 8.6 MG/DL (8.5-10.1); CHLORIDE 107 MMOL/L (99-107); CREATININE 0.81 MG/DL (0.60-1.10); GLUCOSE 79 MG/DL (70-104); MAGNESIUM 1.8 MG/DL (1.5-2.4); PHOSPHORUS 3.3 MG/DL (2.3-4.5); POTASSIUM 4.2 MMOL/L (3.5-5.1); SODIUM 140 MMOL/L (135-145); TOTAL CARBON DIOXIDE 22.2 MMOL/L (24-32); TOTAL PROTEIN 6.5 G/DL (6.4-8.2); eGFR > 90 ML/MIN
[2020-11-28] MEDS: LORazepam 2 mg/ml vial IV PRN ×3 (04:13→20:13)
--- NOTE | 2020-11-28 05:24 | NUR ---
Patient in room PCU 3012. I have received report from Silvia EVANS and had the opportunity to ask questions and assume patient care.
--- NOTE | 2020-11-28 06:11 | NUR ---
Problems reprioritized. Patient report given, questions answered & plan of care reviewed with jodee EVANS.
[2020-11-28 06:49] VITALS: BP 164/103
[2020-11-28] MEDS: thiamine 100mg tablet PO SCH (07:48)
[2020-11-28] MEDS: lisinopril 10 MG tablet PO SCH (07:48)
[2020-11-28] MEDS: guaiFENesin ER 600mg tablet PO SCH ×2 (07:49→19:52)
[2020-11-28] MEDS: levoTHYROXINE 75mcg tablet PO SCH (07:49)
[2020-11-28] MEDS: famotidine 20mg tablet PO SCH (07:49)
[2020-11-28] MEDS: allopurinol 100mg tablet PO SCH ×2 (07:50→19:53)
[2020-11-28] MEDS: lactobacillus rhamnosus 10,000 MMU CELLS/CAPSULE PO SCH ×2 (07:50→19:53)
[2020-11-28] MEDS: aspirin 81mg tab.chew PO SCH (07:50)
[2020-11-28] MEDS: quetiapine 100mg tablet PO SCH ×2 (07:50→19:53)
[2020-11-28] MEDS: folic acid 1mg tablet PO SCH (07:50)
[2020-11-28] MEDS: gabapentin 300mg capsule PO SCH ×2 (07:50→19:53)
[2020-11-28] MEDS: multivitamins, therapeutics tablet PO SCH (07:50)
[2020-11-28] MEDS ORDERED: predniSONE 20 mg tablet PO SCH (08:00)
[2020-11-28 12:29] VITALS: BP 139/90
--- NOTE | 2020-11-28 14:33 | NUR ---
Reassessment: Pt A/Ox1. Pt transferred from critical care to PCU as acute renal failure and metabolic acidosis have been resolved, per EMR. Pt PO 75-100% on a MM5 regular diet since being in the PCU. Pt is currently meeting estimated calorie needs and partially meeting estimated protein needs. Ensure Enlive TIDWM previously recommended still pending verification in the EMR. Last BM 11/28. No nutrition concerns at this time. Will continue to monitor. Recommendations: 1) Continue MM5/thin diet per ANNEALING FURNACE TENDER/ recs; encourage PO 2) ensure enlive TIDWM; pending MD verification in EMR 3) Routine bowel care per rx, promotility agent per MD 4) Continue routine MVM with iron, Thiamine, and folic acid for EtOH hx 5) Weekly wts Addendum: 11/28/20 at [address] Amended: Links added. Addendum: 11/28/20 at [address] RADHA agrees w/ above technology development intern note.
[2020-11-28 15:00] VITALS: BP 119/83
[2020-11-28 18:00] VITALS: BP 129/81
--- NOTE | 2020-11-28 18:24 | NUR ---
Patient in room PCU 3012. I have received report from NATHAN Vega and had the opportunity to ask questions and assume patient care.
[2020-11-28] MEDS: insulin glargine (Lantus) pen - multi-dose SQ SCH (20:02)
[2020-11-28 22:00] VITALS: BP 137/90
--- NOTE | 2020-11-29 00:20 | NUR ---
Pt is very anxious, per keeley the pt was yelling "Let me out of here" and "I want my cane." Keeley tried to explain and reassure the pt, but he continously yell.
[2020-11-29] MEDS: metoclopramide 5 mg/ml inj IV SCH ×4 (01:47→19:47)
[2020-11-29 02:23] VITALS: BP 189/116
[2020-11-29 03:10] VITALS: BP 159/94
--- NOTE | 2020-11-29 03:11 | NUR ---
For previous blood pressure of 189/116 a small cuff was used. Retaken with large BP cuff and pressure dropped to 159/94.
[2020-11-29] MEDS: ipratropium/albuterol 3ml nebule NEB SCH ×6 (03:29→23:25)
[2020-11-29 04:19] LABS: BASOPHILS % (AUTO) 0.3 % (0-1); EOSINOPHILS % (AUTO) 0.1 % (0-6); HEMATOCRIT 28.3 % (42.0-52.0); HEMOGLOBIN 9.7 g/dl (14.0-17.9); LYMPHOCYTES # (AUTO) 0.3 X10'3 (1.1-4.8); LYMPHOCYTES % (AUTO) 5.8 % (21-51); MEAN CORPUSCULAR HGB CONC 34.2 g/dL (33.0-36.5); MEAN CORPUSCULAR VOLUME 96.5 FL (78-98); MEAN PLATELET VOLUME 6.8 FL (7.4-10.4); MONOCYTES # (AUTO) 0.2 X10'3 (0-0.9); MONOCYTES % (AUTO) 3.4 % (2-12); NEUTROPHILS # (AUTO) 4.3 X10'3 (1.8-7.7); NEUTROPHILS % (AUTO) 90.4 % (42-75); PLATELET COUNT 199 X10'3 (140-440); RED BLOOD COUNT 2.93 X10'6 (4.70-6.10); RED CELL DISTRIBUTION WIDTH 17.6 % (11.5-14.5); WHITE BLOOD COUNT 4.8 X10'3 (4.5-11.0)
[2020-11-29 04:35] LABS: ALANINE AMINOTRANSFERASE 42 U/L (12-78); ALBUMIN/GLOBULIN RATIO 0.8 (1.1-1.5); ALKALINE PHOSPHATASE 75 IU/L (46-116); ANION GAP 12 (8-16); ASPARTATE AMINO TRANSFERASE 30 U/L (10-37); BILIRUBIN,TOTAL 1.1 MG/DL (0.1-1.0); BLOOD UREA NITROGEN 30 MG/DL (7-18); BUN/CREATININE RATIO 38.5 (5.4-32.0); CALCIUM 8.7 MG/DL (8.5-10.1); CHLORIDE 107 MMOL/L (99-107); CREATININE 0.78 MG/DL (0.60-1.10); GLUCOSE 81 MG/DL (70-104); MAGNESIUM 1.7 MG/DL (1.5-2.4); PHOSPHORUS 3.6 MG/DL (2.3-4.5); POTASSIUM 4.3 MMOL/L (3.5-5.1); PREALBUMIN 30.1 MG/DL (19-36); SODIUM 139 MMOL/L (135-145); TOTAL CARBON DIOXIDE 20.5 MMOL/L (24-32); TOTAL PROTEIN 6.8 G/DL (6.4-8.2); eGFR > 90 ML/MIN
[2020-11-29 06:00] VITALS: BP 132/99
--- NOTE | 2020-11-29 06:29 | NUR ---
Problems reprioritized. Patient report given, questions answered & plan of care reviewed with NATHAN Avalos.
[2020-11-29] MEDS: levoTHYROXINE 100mcg tablet PO SCH (09:01)
[2020-11-29] MEDS: lactobacillus rhamnosus 10,000 MMU CELLS/CAPSULE PO SCH ×2 (09:03→19:48)
[2020-11-29] MEDS: thiamine 100mg tablet PO SCH (09:04)
[2020-11-29] MEDS: gabapentin 300mg capsule PO SCH ×2 (09:04→19:48)
[2020-11-29] MEDS: prednisone 10mg tablet PO SCH (09:05)
[2020-11-29] MEDS: multivitamins, therapeutics tablet PO SCH (09:05)
[2020-11-29] MEDS: famotidine 20mg tablet PO SCH (09:05)
[2020-11-29] MEDS: lisinopril 10 MG tablet PO SCH (09:06)
[2020-11-29] MEDS: folic acid 1mg tablet PO SCH (09:07)
[2020-11-29] MEDS: allopurinol 100mg tablet PO SCH ×2 (09:07→19:48)
[2020-11-29] MEDS: quetiapine 100mg tablet PO SCH ×2 (09:08→19:48)
[2020-11-29] MEDS: guaiFENesin ER 600mg tablet PO SCH (09:08)
[2020-11-29 11:00] VITALS: BP 136/97
[2020-11-29 15:30] VITALS: BP 111/79
[2020-11-29 18:00] VITALS: BP 156/102
--- NOTE | 2020-11-29 18:52 | NUR ---
Report given to Zandra EVANS, Pt being fed in bed by sitter. patient clean and dry, fresh change. No signifigant changes through shift. All questions answered
[2020-11-29] MEDS: guaiFENesin 200 MG/10 ML oral syrup UD cup PO SCH (19:47)
--- NOTE | 2020-11-29 20:09 | NUR ---
Paged Dr. Linares. PAGER ID: [phone] MESSAGE: This is Dori x [phone]. Pt in 3012B Omid Walters 70 M Dx : Acute encephalopathy, ETOH wdrawl, Acute rhamdomyolysis was converted to Afib from SR. VS :125/93 HR 105 O2 sat 93% 2L O2 via NC. Pt denied SOB and chest pain. Thanks!
[2020-11-29] MEDS: insulin glargine (Lantus) pen - multi-dose SQ SCH (21:00)
--- NOTE | 2020-11-29 23:35 | NUR ---
Dr. Linares ordered 12 Lead EKG and bring the result to her.
[2020-11-30] MEDS: LORazepam 2 mg/ml vial IV PRN (00:30)
[2020-11-30] MEDS: metoclopramide 5 mg/ml inj IV SCH ×4 (01:29→19:43)
--- NOTE | 2020-11-30 01:49 | NUR ---
Paged Dr. Linares. PAGER ID: [phone] MESSAGE: This is Erinn x [phone]. Pt in rm 3024B Us, R. 80 M Dx CHF has a HR 47 - 57. VS : 111/45;O2 sat 92 % @ 2 LPM. Pt is asymptomatic. Pt had Lasix and Lisinopril this evening. Thanks! Addendum: 11/30/20 at 0150 by Dori De La Torre RN charted to a wrong pt.
[2020-11-30 02:00] VITALS: BP 134/87
[2020-11-30] MEDS: ipratropium/albuterol 3ml nebule NEB SCH ×6 (03:20→23:14)
[2020-11-30 05:20] LABS: BASOPHILS % (AUTO) 0.2 % (0-1); EOSINOPHILS # (AUTO) 0.1 X10'3 (0-0.9); EOSINOPHILS % (AUTO) 2.1 % (0-6); HEMATOCRIT 25.6 % (42.0-52.0); HEMOGLOBIN 8.6 g/dl (14.0-17.9); LYMPHOCYTES # (AUTO) 0.5 X10'3 (1.1-4.8); LYMPHOCYTES % (AUTO) 11.7 % (21-51); MEAN CORPUSCULAR HEMOGLOBIN 32.7 PG (27.0-31.0); MEAN CORPUSCULAR HGB CONC 33.5 g/dL (33.0-36.5); MEAN CORPUSCULAR VOLUME 97.8 FL (78-98); MEAN PLATELET VOLUME 7.2 FL (7.4-10.4); MONOCYTES # (AUTO) 0.2 X10'3 (0-0.9); NEUTROPHILS # (AUTO) 3.5 X10'3 (1.8-7.7); PLATELET COUNT 189 X10'3 (140-440); RED BLOOD COUNT 2.62 X10'6 (4.70-6.10); RED CELL DISTRIBUTION WIDTH 18.6 % (11.5-14.5); WHITE BLOOD COUNT 4.3 X10'3 (4.5-11.0)
[2020-11-30 05:27] LABS: ALANINE AMINOTRANSFERASE 36 U/L (12-78); ALBUMIN 2.7 G/DL (3.4-5.0); ALBUMIN/GLOBULIN RATIO 0.8 (1.1-1.5); ALKALINE PHOSPHATASE 70 IU/L (46-116); ANION GAP 8 (8-16); ASPARTATE AMINO TRANSFERASE 22 U/L (10-37); BILIRUBIN,TOTAL 0.8 MG/DL (0.1-1.0); BLOOD UREA NITROGEN 34 MG/DL (7-18); BUN/CREATININE RATIO 31.5 (5.4-32.0); CALCIUM 8.7 MG/DL (8.5-10.1); CHLORIDE 108 MMOL/L (99-107); CREATININE 1.08 MG/DL (0.60-1.10); GLUCOSE 90 MG/DL (70-104); MAGNESIUM 1.7 MG/DL (1.5-2.4); PHOSPHORUS 3.2 MG/DL (2.3-4.5); POTASSIUM 4.1 MMOL/L (3.5-5.1); SODIUM 139 MMOL/L (135-145); TOTAL CARBON DIOXIDE 22.9 MMOL/L (24-32); TOTAL PROTEIN 6.2 G/DL (6.4-8.2); eGFR 67 ML/MIN
--- NOTE | 2020-11-30 06:15 | NUR ---
Problems reprioritized. Patient report given, questions answered & plan of care reviewed with Nancy Powell RN.
--- NOTE | 2020-11-30 06:32 | NUR ---
Patient in room PCU 3012. I have received report from Helen EVANS and had the opportunity to ask questions and assume patient care.
--- NOTE | 2020-11-30 06:32 | NUR ---
Patient in room PCU 3012. I have received report from Faviola EVANS and had the opportunity to ask questions and assume patient care.
[2020-11-30] MEDS: levoTHYROXINE 100mcg tablet PO SCH (08:28)
[2020-11-30] MEDS: prednisone 10mg tablet PO SCH (08:28)
[2020-11-30] MEDS: multivitamins, therapeutics tablet PO SCH (08:29)
[2020-11-30] MEDS: folic acid 1mg tablet PO SCH (08:29)
[2020-11-30] MEDS: allopurinol 100mg tablet PO SCH ×2 (08:29→19:43)
[2020-11-30] MEDS: famotidine 20mg tablet PO SCH (08:29)
[2020-11-30] MEDS: quetiapine 100mg tablet PO SCH ×2 (08:30→19:43)
[2020-11-30] MEDS: lisinopril 10 MG tablet PO SCH (08:30)
[2020-11-30] MEDS: gabapentin 300mg capsule PO SCH ×2 (08:31→19:43)
[2020-11-30] MEDS: thiamine 100mg tablet PO SCH (08:31)
[2020-11-30] MEDS: lactobacillus rhamnosus 10,000 MMU CELLS/CAPSULE PO SCH ×2 (08:31→19:43)
[2020-11-30] MEDS: guaiFENesin 200 MG/10 ML oral syrup UD cup PO SCH ×2 (08:32→19:43)
[2020-11-30 11:00] VITALS: BP 105/58
--- NOTE | 2020-11-30 12:28 | NUR ---
Dr. Delgado at bedside with pt and nurse. MD was in contact with Consuelo and discussed code status. It was decided for pt to be DNR due to prognosis. Band was verified and applied to pt. MD is aware of pt biting down on tongue and cheeks, causing bleeding in mouth. Oral care has been completed several times and still has lots of bleeding happening. Will continue to monitor.
[2020-11-30] MEDS: nystatin 15 GM powder TP SCH ×2 (13:05→22:03)
[2020-11-30 15:00] VITALS: BP 142/92
--- NOTE | 2020-11-30 15:48 | NUR ---
Reassessment: Pt continues on MM5 thin liquid diet per ST recs. Pt needs a feeder d/t restraints per ST note. Pt continues eating well with 75-100% PO intake. [facility] 11/29. No nutrition intervention implemented at this time. Will continue to follow. Recommendations: 1) Continue MM5/thin diet per CLEANING CREW MEMBER/ recs; encourage PO 2) Monitor need for ONS 3) Bowel care per rx, promotility agent per MD 4) Continue routine MVI, Thiamine, and folic acid for EtOH hx 5) Weekly scaled wts Addendum: 11/30/20 at [address] Amended: Links added.
[2020-11-30 18:00] VITALS: BP 152/92
--- NOTE | 2020-11-30 18:07 | NUR ---
Problems reprioritized. Patient report given, questions answered & plan of care reviewed with Helen EVANS.
--- NOTE | 2020-11-30 18:08 | NUR ---
Orientee documentation: I have reviewed and agree with all interventions, assessments performed and documented by Jose EVANS.
--- NOTE | 2020-11-30 18:12 | NUR ---
Patient in room PCU 3012. I have received report from Nancy Powell RN and had the opportunity to ask questions and assume patient care.
[2020-11-30] MEDS: insulin glargine (Lantus) pen - multi-dose SQ SCH (21:00)
[2020-12-01 02:00] VITALS: BP 144/93
[2020-12-01] MEDS: metoclopramide 5 mg/ml inj IV SCH ×2 (02:00→07:24)
[2020-12-01] MEDS: ipratropium/albuterol 3ml nebule NEB SCH ×6 (03:04→23:29)
--- NOTE | 2020-12-01 06:19 | NUR ---
Problems reprioritized. Patient report given, questions answered & plan of care reviewed with Nancy Powell RN.
--- NOTE | 2020-12-01 06:33 | NUR ---
Patient in room PCU 3012. I have received report from Helen EVANS and had the opportunity to ask questions and assume patient care.
[2020-12-01 07:00] VITALS: BP 141/99
[2020-12-01] MEDS: allopurinol 100mg tablet PO SCH ×2 (07:24→20:06)
[2020-12-01] MEDS: multivitamins, therapeutics tablet PO SCH (07:24)
[2020-12-01] MEDS: nystatin 15 GM powder TP SCH ×3 (07:24→20:07)
[2020-12-01] MEDS: famotidine 20mg tablet PO SCH (07:24)
[2020-12-01] MEDS: guaiFENesin 200 MG/10 ML oral syrup UD cup PO SCH ×2 (07:24→20:06)
[2020-12-01] MEDS: thiamine 100mg tablet PO SCH (07:24)
[2020-12-01] MEDS: quetiapine 100mg tablet PO SCH ×2 (07:24→20:06)
[2020-12-01] MEDS: levoTHYROXINE 100mcg tablet PO SCH (07:25)
[2020-12-01] MEDS: lisinopril 10 MG tablet PO SCH (07:25)
[2020-12-01] MEDS: lactobacillus rhamnosus 10,000 MMU CELLS/CAPSULE PO SCH ×2 (07:25→20:06)
[2020-12-01] MEDS: gabapentin 300mg capsule PO SCH ×2 (07:25→20:06)
[2020-12-01] MEDS: folic acid 1mg tablet PO SCH (07:25)
--- NOTE | 2020-12-01 10:10 | NUR ---
Problems reprioritized. Patient report given, questions answered & plan of care reviewed with Ca EVANS.
[2020-12-01 11:00] VITALS: BP 116/79
[2020-12-01 12:25] LABS: ALANINE AMINOTRANSFERASE 37 U/L (12-78); ALBUMIN/GLOBULIN RATIO 0.8 (1.1-1.5); ALKALINE PHOSPHATASE 78 IU/L (46-116); ANION GAP 10 (8-16); ASPARTATE AMINO TRANSFERASE 27 U/L (10-37); BILIRUBIN,TOTAL 1.3 MG/DL (0.1-1.0); BLOOD UREA NITROGEN 28 MG/DL (7-18); CALCIUM 8.8 MG/DL (8.5-10.1); CHLORIDE 107 MMOL/L (99-107); GLUCOSE 94 MG/DL (70-104); MAGNESIUM 1.5 MG/DL (1.5-2.4); PHOSPHORUS 3.4 MG/DL (2.3-4.5); SODIUM 140 MMOL/L (135-145); TOTAL CARBON DIOXIDE 22.6 MMOL/L (24-32); TOTAL PROTEIN 6.6 G/DL (6.4-8.2); eGFR 74 ML/MIN
[2020-12-01 15:00] VITALS: BP 92/65
[2020-12-01] MEDS: dextrose 5%-water 1,000 ML IV SCH (17:49)
[2020-12-01 18:00] VITALS: BP 151/132
--- NOTE | 2020-12-01 18:23 | NUR ---
Problems reprioritized. Patient report given, questions answered & plan of care reviewed with Geoff EVANS Traveler.
[2020-12-01] MEDS ORDERED: iohexol 300mg/ml 100ml inj. ONE (18:54)
[2020-12-01] MEDS: insulin glargine (Lantus) pen - multi-dose SQ SCH (20:07)
--- NOTE | 2020-12-01 21:02 | NUR ---
PAGER ID: [phone] MESSAGE: [id number] Omid Walters seems to have converted at approx. @1500 today to aflutter from nsr. bp is also elevated as well. Dewayne marley pcu
[2020-12-01] MEDS: metoprolol succinate 25mg (24-HOUR) SR. Tablet PO SCH (21:21)
[2020-12-01 22:00] VITALS: BP 100/69
[2020-12-02] VITALS (14 sets, daily range): BP systolic 66–150; BP diastolic 40–124
[2020-12-02] MEDS: ipratropium/albuterol 3ml nebule NEB SCH ×6 (02:41→23:32)
[2020-12-02] MEDS: dextrose 5%-water 1,000 ML IV SCH ×3 (03:30→23:30)
--- NOTE | 2020-12-02 06:40 | NUR ---
Patient in room PCU 3012. I have received report from Geoff EVANS and had the opportunity to ask questions and assume patient care.
--- NOTE | 2020-12-02 07:28 | NUR ---
0640 pt's BP 66/45 HR 70, pt remains confused/difficult to assess, denies pain/Chest pain, placed into trendelenberg. Found D5 IV off/not running. 0645 BP 76/60 HR 74; BG 102. content developer notified. 0650 500cc NS bolus commenced. 0700 BP 116/98, HR-70. Pt taken out of trendelenberg. 0705 BP 74/51, HR 78, placed back into trendelenberg. 0710 BP 93/62, HR-74. 0715 pt placed back into flat bed position, BP 96/73, HR 79. Will continue to monitor. paged. [phone] PAGER ID: [phone] MESSAGE: re: room 3012B, Romeo Anne Please call. pt BP's 74/40, 66/45, put into Trendelenberg, NS bolus infusing. [facility] [phone] Rodgers, report given re: above, orders received to hold Lisinopril and Metropolol, continue D5 at 100cc/hr IV. Will continue to monitor.
[2020-12-02] MEDS: lisinopril 10 MG tablet PO SCH (07:45)
[2020-12-02] MEDS: metoprolol succinate 25mg (24-HOUR) SR. Tablet PO SCH (07:45)
[2020-12-02] MEDS: lactobacillus rhamnosus 10,000 MMU CELLS/CAPSULE PO SCH (08:00)
[2020-12-02] MEDS: allopurinol 100mg tablet PO SCH ×2 (08:00→20:02)
[2020-12-02] MEDS: quetiapine 100mg tablet PO SCH ×2 (08:00→20:02)
[2020-12-02] MEDS: multivitamins, therapeutics tablet PO SCH (08:00)
[2020-12-02] MEDS: famotidine 20mg tablet PO SCH (08:00)
[2020-12-02] MEDS: thiamine 100mg tablet PO SCH (08:00)
[2020-12-02] MEDS: guaiFENesin 200 MG/10 ML oral syrup UD cup PO SCH ×2 (08:00→20:02)
[2020-12-02] MEDS: gabapentin 300mg capsule PO SCH ×2 (08:00→20:02)
[2020-12-02] MEDS: folic acid 1mg tablet PO SCH (08:00)
[2020-12-02 08:37] LABS: ALANINE AMINOTRANSFERASE 45 U/L (12-78); ALBUMIN 2.9 G/DL (3.4-5.0); ALBUMIN/GLOBULIN RATIO 0.8 (1.1-1.5); ALKALINE PHOSPHATASE 83 IU/L (46-116); ANION GAP 12 (8-16); ASPARTATE AMINO TRANSFERASE 35 U/L (10-37); BILIRUBIN,TOTAL 1.3 MG/DL (0.1-1.0); BLOOD UREA NITROGEN 37 MG/DL (7-18); BUN/CREATININE RATIO 18.8 (5.4-32.0); CALCIUM 8.7 MG/DL (8.5-10.1); CHLORIDE 103 MMOL/L (99-107); CREATININE 1.97 MG/DL (0.60-1.10); GLUCOSE 126 MG/DL (70-104); MAGNESIUM 1.5 MG/DL (1.5-2.4); PHOSPHORUS 4.5 MG/DL (2.3-4.5); POTASSIUM 4.4 MMOL/L (3.5-5.1); SODIUM 136 MMOL/L (135-145); TOTAL CARBON DIOXIDE 21.5 MMOL/L (24-32); TOTAL PROTEIN 6.7 G/DL (6.4-8.2); eGFR 34 ML/MIN
[2020-12-02 08:40] LABS: BASOPHILS % (AUTO) 0.2 % (0-1); EOSINOPHILS # (AUTO) 0.1 X10'3 (0-0.9); EOSINOPHILS % (AUTO) 1.9 % (0-6); HEMATOCRIT 27.5 % (42.0-52.0); HEMOGLOBIN 9.2 g/dl (14.0-17.9); LYMPHOCYTES # (AUTO) 0.6 X10'3 (1.1-4.8); LYMPHOCYTES % (AUTO) 10.5 % (21-51); MEAN CORPUSCULAR HEMOGLOBIN 32.9 PG (27.0-31.0); MEAN CORPUSCULAR HGB CONC 33.7 g/dL (33.0-36.5); MEAN CORPUSCULAR VOLUME 97.7 FL (78-98); MEAN PLATELET VOLUME 7.1 FL (7.4-10.4); MONOCYTES # (AUTO) 0.4 X10'3 (0-0.9); MONOCYTES % (AUTO) 6.3 % (2-12); NEUTROPHILS # (AUTO) 4.5 X10'3 (1.8-7.7); NEUTROPHILS % (AUTO) 81.1 % (42-75); PLATELET COUNT 182 X10'3 (140-440); RED BLOOD COUNT 2.81 X10'6 (4.70-6.10); RED CELL DISTRIBUTION WIDTH 18.8 % (11.5-14.5); WHITE BLOOD COUNT 5.6 X10'3 (4.5-11.0)
[2020-12-02 09:27] LABS: ANISOCYTOSIS 2+; ELLIPTOCYTES FEW; PLATELET ESTIMATE NORMAL; POLYCHROMASIA FEW; TEAR DROP CELLS FEW
--- NOTE | 2020-12-02 10:33 | NUR ---
PAGER ID: [phone] MESSAGE: re: [id number], Romeo Anne Pt was too sleepy earlier to take a.m. meds and is now refusing to take them. thank you, Sammi [phone]
[2020-12-02] MEDS: nystatin 15 GM powder TP SCH ×3 (13:20→20:09)
--- NOTE | 2020-12-02 15:37 | NUR ---
PAGER ID: [phone] MESSAGE: re: Room 3012B, Romeo Anne May I have an order for a rectal tube? Pt now having multiple watery stools this afternoon. thank you, Sammi WIGGINS [phone] Will continue to monitor.
[2020-12-02] MEDS ORDERED: loperamide 2mg capsule PO ONE (15:45)
[2020-12-02] MEDS ORDERED: loperamide 2mg capsule PO PRN (15:55)
--- NOTE | 2020-12-02 16:04 | NUR ---
0821 Vital signs should have been documented at 0600.
--- NOTE | 2020-12-02 17:00 | NUR ---
Rectal Tube placed at 1600 without difficulty draining watery brown stool. Pt agitated after procedure and was unable to give Imodium PO until now. Also able to give a.m. po dose of Synthroid. Pt refused all other a.m. meds despite 2 attempts to give. aware. Will continue to monitor.
[2020-12-02] MEDS: levoTHYROXINE 100mcg tablet PO SCH (17:04)
[2020-12-02] MEDS: insulin glargine (Lantus) pen - multi-dose SQ SCH (20:08)
[2020-12-03] VITALS (8 sets, daily range): BP systolic 88–135; BP diastolic 50–109
[2020-12-03] MEDS: ipratropium/albuterol 3ml nebule NEB SCH ×7 (03:00→23:07)
[2020-12-03 04:03] LABS: BASOPHILS % (AUTO) 0.4 % (0-1); EOSINOPHILS # (AUTO) 0.1 X10'3 (0-0.9); EOSINOPHILS % (AUTO) 2.5 % (0-6); HEMATOCRIT 23.2 % (42.0-52.0); HEMOGLOBIN 7.8 g/dl (14.0-17.9); LYMPHOCYTES # (AUTO) 0.5 X10'3 (1.1-4.8); LYMPHOCYTES % (AUTO) 10.3 % (21-51); MEAN CORPUSCULAR HEMOGLOBIN 33.1 PG (27.0-31.0); MEAN CORPUSCULAR HGB CONC 33.8 g/dL (33.0-36.5); MEAN CORPUSCULAR VOLUME 97.8 FL (78-98); MEAN PLATELET VOLUME 6.9 FL (7.4-10.4); MONOCYTES # (AUTO) 0.3 X10'3 (0-0.9); MONOCYTES % (AUTO) 6.6 % (2-12); NEUTROPHILS # (AUTO) 3.5 X10'3 (1.8-7.7); NEUTROPHILS % (AUTO) 80.2 % (42-75); PLATELET COUNT 146 X10'3 (140-440); RED BLOOD COUNT 2.37 X10'6 (4.70-6.10); RED CELL DISTRIBUTION WIDTH 18.2 % (11.5-14.5); WHITE BLOOD COUNT 4.4 X10'3 (4.5-11.0)
[2020-12-03 04:20] LABS: ALANINE AMINOTRANSFERASE 54 U/L (12-78); ALBUMIN 2.6 G/DL (3.4-5.0); ALBUMIN/GLOBULIN RATIO 0.7 (1.1-1.5); ALKALINE PHOSPHATASE 75 IU/L (46-116); ANION GAP 11 (8-16); ASPARTATE AMINO TRANSFERASE 61 U/L (10-37); BILIRUBIN,TOTAL 1.1 MG/DL (0.1-1.0); BLOOD UREA NITROGEN 41 MG/DL (7-18); BUN/CREATININE RATIO 21.4 (5.4-32.0); CHLORIDE 102 MMOL/L (99-107); CREATININE 1.92 MG/DL (0.60-1.10); GLUCOSE 118 MG/DL (70-104); POTASSIUM 4.3 MMOL/L (3.5-5.1); PREALBUMIN 24.3 MG/DL (19-36); SODIUM 132 MMOL/L (135-145); TOTAL CARBON DIOXIDE 19.4 MMOL/L (24-32); TOTAL PROTEIN 6.2 G/DL (6.4-8.2); eGFR 35 ML/MIN
--- NOTE | 2020-12-03 06:08 | NUR ---
Pt bladder scanned after no output this evening. 697 ml via bladder scan. Dr. Cannon notified. In& out cath order received. 600ml output.
[2020-12-03] MEDS: levoTHYROXINE 100mcg tablet PO SCH (07:36)
[2020-12-03] MEDS: guaiFENesin 200 MG/10 ML oral syrup UD cup PO SCH ×2 (07:36→19:51)
[2020-12-03] MEDS: gabapentin 300mg capsule PO SCH ×2 (07:36→19:51)
[2020-12-03] MEDS: lisinopril 10 MG tablet PO SCH (07:36)
[2020-12-03] MEDS: multivitamins, therapeutics tablet PO SCH (07:36)
[2020-12-03] MEDS: metoprolol succinate 25mg (24-HOUR) SR. Tablet PO SCH (07:37)
[2020-12-03] MEDS: quetiapine 100mg tablet PO SCH ×2 (07:37→19:51)
[2020-12-03] MEDS: allopurinol 100mg tablet PO SCH ×2 (07:37→19:51)
[2020-12-03] MEDS: famotidine 20mg tablet PO SCH (07:37)
[2020-12-03] MEDS: nystatin 15 GM powder TP SCH ×3 (07:37→19:52)
[2020-12-03] MEDS: folic acid 1mg tablet PO SCH (07:37)
[2020-12-03] MEDS: thiamine 100mg tablet PO SCH (07:37)
--- NOTE | 2020-12-03 13:30 | NUR ---
AT THIS TIME PATIENT HAS UA RETENTION OF [address] MCCLENDON FOR ORDERS HAS PATIENT WAS STARIGHT CATH LAST NIGHT.
--- NOTE | 2020-12-03 13:32 | NUR ---
PAGER ID: [phone] MESSAGE: THIS IS MANNIE PARDO PCU, PATIENT IN 3012B MATT HUTCHINSON I DID BLADDER SCAN HAS PATIENT HAS NOT HAD URINARY OUTPUT AND IT WAS 420, THANKS
--- NOTE | 2020-12-03 14:22 | NUR ---
PAGER ID: [phone] MESSAGE: HI THIS IS MANNIE FROM PCU PATIENT 3[address] MATT HUTCHINSON HAS A RETENTION OF 420 I NEED ORDERS FOR TESFAYE OR STRAIGHT CATH
[2020-12-03] MEDS ORDERED: LIDOcaine 2% 10ml TOPICAL JELLY (Urojet) TP ONE (15:25)
[2020-12-03] MEDS: acetaminophen 325mg tablet PO PRN (17:07)
[2020-12-03] MEDS: dextrose 5%-water 1,000 ML IV SCH ×2 (19:30)
[2020-12-03] MEDS: tamsulosin 0.4mg capsule PO SCH (19:51)
[2020-12-03] MEDS: insulin glargine (Lantus) pen - multi-dose SQ SCH (19:52)
--- NOTE | 2020-12-03 21:54 | NUR ---
Dr. Cannon notified of BP 88/51. Pt drowsy and unable to give medications tonight. Per Dr. Cannon, d/c lisinopril and give 250cc bolus.
[2020-12-03] MEDS ORDERED: normal saline 500ml IV soln 1,000 ML IV SCH (22:00)
[2020-12-04] VITALS (7 sets, daily range): BP systolic 82–141; BP diastolic 39–89
[2020-12-04] MEDS: ipratropium/albuterol 3ml nebule NEB SCH ×6 (03:04→22:53)
[2020-12-04 03:53] LABS: ALANINE AMINOTRANSFERASE 43 U/L (12-78); ALBUMIN 2.5 G/DL (3.4-5.0); ALBUMIN/GLOBULIN RATIO 0.7 (1.1-1.5); ALKALINE PHOSPHATASE 82 IU/L (46-116); ANION GAP 10 (8-16); ASPARTATE AMINO TRANSFERASE 41 U/L (10-37); BILIRUBIN,TOTAL 1.2 MG/DL (0.1-1.0); BLOOD UREA NITROGEN 40 MG/DL (7-18); BUN/CREATININE RATIO 23.7 (5.4-32.0); CALCIUM 7.7 MG/DL (8.5-10.1); CHLORIDE 99 MMOL/L (99-107); CREATININE 1.69 MG/DL (0.60-1.10); GLUCOSE 102 MG/DL (70-104); POTASSIUM 4.3 MMOL/L (3.5-5.1); SODIUM 128 MMOL/L (135-145); TOTAL CARBON DIOXIDE 19.5 MMOL/L (24-32); TOTAL PROTEIN 6.2 G/DL (6.4-8.2); TRIGLYCERIDES 144 MG/DL (20-135); eGFR 40 ML/MIN
[2020-12-04 03:57] LABS: BASOPHILS % (AUTO) 0.1 % (0-1); EOSINOPHILS # (AUTO) 0.1 X10'3 (0-0.9); EOSINOPHILS % (AUTO) 1.5 % (0-6); HEMATOCRIT 22.4 % (42.0-52.0); HEMOGLOBIN 7.7 g/dl (14.0-17.9); LYMPHOCYTES # (AUTO) 0.4 X10'3 (1.1-4.8); LYMPHOCYTES % (AUTO) 6.4 % (21-51); MEAN CORPUSCULAR HEMOGLOBIN 33.3 PG (27.0-31.0); MEAN CORPUSCULAR HGB CONC 34.4 g/dL (33.0-36.5); MEAN PLATELET VOLUME 7.1 FL (7.4-10.4); MONOCYTES # (AUTO) 0.4 X10'3 (0-0.9); MONOCYTES % (AUTO) 6.7 % (2-12); NEUTROPHILS # (AUTO) 4.8 X10'3 (1.8-7.7); NEUTROPHILS % (AUTO) 85.3 % (42-75); PLATELET COUNT 127 X10'3 (140-440); RED BLOOD COUNT 2.31 X10'6 (4.70-6.10); RED CELL DISTRIBUTION WIDTH 17.9 % (11.5-14.5); WHITE BLOOD COUNT 5.6 X10'3 (4.5-11.0)
[2020-12-04] MEDS: dextrose 5%-water 1,000 ML IV SCH ×2 (05:36→15:35)
--- NOTE | 2020-12-04 06:34 | NUR ---
Patient in room PCU 3012. I have received report from Aminta EVANS and had the opportunity to ask questions and assume patient care.
[2020-12-04] MEDS: nystatin 15 GM powder TP SCH ×3 (07:38→20:41)
[2020-12-04] MEDS: guaiFENesin 200 MG/10 ML oral syrup UD cup PO SCH ×2 (07:38→20:00)
[2020-12-04] MEDS: gabapentin 300mg capsule PO SCH ×2 (07:38→20:40)
[2020-12-04] MEDS: thiamine 100mg tablet PO SCH (07:39)
[2020-12-04] MEDS: metoprolol succinate 25mg (24-HOUR) SR. Tablet PO SCH (07:39)
[2020-12-04] MEDS: multivitamins, therapeutics tablet PO SCH (07:39)
[2020-12-04] MEDS: folic acid 1mg tablet PO SCH (07:39)
[2020-12-04] MEDS: quetiapine 100mg tablet PO SCH ×2 (07:39→20:40)
[2020-12-04] MEDS: levoTHYROXINE 100mcg tablet PO SCH (07:40)
[2020-12-04] MEDS: famotidine 20mg tablet PO SCH (07:40)
[2020-12-04] MEDS: allopurinol 100mg tablet PO SCH ×2 (07:40→20:40)
--- NOTE | 2020-12-04 12:33 | NUR ---
PAGER ID: [phone] MESSAGE: Arnaud Anne [id number]. Restraint renewal has been ordered, need you to E-sign it so it can be valid. Thank You, Taylor WIGGINS
--- NOTE | 2020-12-04 18:10 | NUR ---
Problems reprioritized. Patient report given, questions answered & plan of care reviewed with Aminta EVANS.
[2020-12-04] MEDS: insulin glargine (Lantus) pen - multi-dose SQ SCH (20:41)
[2020-12-04] MEDS: tamsulosin 0.4mg capsule PO SCH (20:41)
[2020-12-05] MEDS: dextrose 5%-water 1,000 ML IV SCH ×3 (00:22→18:53)
[2020-12-05 02:00] VITALS: BP 115/58
[2020-12-05] MEDS: ipratropium/albuterol 3ml nebule NEB SCH ×6 (02:49→23:13)
[2020-12-05 04:28] LABS: BASOPHILS % (AUTO) 0.1 % (0-1); EOSINOPHILS # (AUTO) 0.1 X10'3 (0-0.9); EOSINOPHILS % (AUTO) 1.5 % (0-6); HEMOGLOBIN 7.4 g/dl (14.0-17.9); LYMPHOCYTES # (AUTO) 0.4 X10'3 (1.1-4.8); LYMPHOCYTES % (AUTO) 8.2 % (21-51); MEAN CORPUSCULAR HEMOGLOBIN 33.2 PG (27.0-31.0); MEAN CORPUSCULAR HGB CONC 34.3 g/dL (33.0-36.5); MEAN CORPUSCULAR VOLUME 96.9 FL (78-98); MEAN PLATELET VOLUME 7.2 FL (7.4-10.4); MONOCYTES # (AUTO) 0.4 X10'3 (0-0.9); MONOCYTES % (AUTO) 7.7 % (2-12); NEUTROPHILS # (AUTO) 4.3 X10'3 (1.8-7.7); NEUTROPHILS % (AUTO) 82.5 % (42-75); PLATELET COUNT 129 X10'3 (140-440); RED BLOOD COUNT 2.24 X10'6 (4.70-6.10); RED CELL DISTRIBUTION WIDTH 17.5 % (11.5-14.5); WHITE BLOOD COUNT 5.2 X10'3 (4.5-11.0)
[2020-12-05 04:35] LABS: HEMATOCRIT 21.7 % (42.0-52.0)
[2020-12-05 04:37] LABS: ALANINE AMINOTRANSFERASE 41 U/L (12-78); ALBUMIN 2.4 G/DL (3.4-5.0); ALBUMIN/GLOBULIN RATIO 0.6 (1.1-1.5); ALKALINE PHOSPHATASE 86 IU/L (46-116); ANION GAP 12 (8-16); ASPARTATE AMINO TRANSFERASE 40 U/L (10-37); BILIRUBIN,TOTAL 0.9 MG/DL (0.1-1.0); BLOOD UREA NITROGEN 30 MG/DL (7-18); CHLORIDE 102 MMOL/L (99-107); CREATININE 1.07 MG/DL (0.60-1.10); GLUCOSE 109 MG/DL (70-104); SODIUM 132 MMOL/L (135-145); TOTAL CARBON DIOXIDE 18.1 MMOL/L (24-32); TOTAL PROTEIN 6.2 G/DL (6.4-8.2); eGFR 68 ML/MIN
--- NOTE | 2020-12-05 04:40 | NUR ---
Dr. Cannon notified of critical hematocrit 21.7. No new orders received.
[2020-12-05 06:00] VITALS: BP 118/62
--- NOTE | 2020-12-05 06:25 | NUR ---
Patient in room PCU 3012. I have received report from NATHAN Lemos and had the opportunity to ask questions and assume patient care.
--- NOTE | 2020-12-05 06:25 | NUR ---
Patient in room PCU 3012. I have received report from Aminta EVANS and had the opportunity to ask questions and assume patient care. Patient in no distress, no pain, whiteboard updated.
[2020-12-05] MEDS: levoTHYROXINE 100mcg tablet PO SCH (07:30)
[2020-12-05] MEDS: thiamine 100mg tablet PO SCH (08:00)
[2020-12-05] MEDS: folic acid 1mg tablet PO SCH (08:00)
[2020-12-05] MEDS: multivitamins, therapeutics tablet PO SCH (08:00)
[2020-12-05] MEDS: famotidine 20mg tablet PO SCH (08:00)
[2020-12-05] MEDS: allopurinol 100mg tablet PO SCH ×2 (08:00→19:00)
[2020-12-05] MEDS: quetiapine 100mg tablet PO SCH ×2 (08:00→19:00)
[2020-12-05] MEDS: gabapentin 300mg capsule PO SCH ×2 (08:00→19:00)
[2020-12-05] MEDS: metoprolol succinate 25mg (24-HOUR) SR. Tablet PO SCH (08:00)
[2020-12-05] MEDS: nystatin 15 GM powder TP SCH ×3 (08:00→20:02)
[2020-12-05] MEDS: guaiFENesin 200 MG/10 ML oral syrup UD cup PO SCH ×2 (08:00→19:00)
[2020-12-05 11:00] VITALS: BP 136/70
[2020-12-05] MEDS: LORazepam 2 mg/ml vial IV PRN (12:25)
--- NOTE | 2020-12-05 12:27 | NUR ---
F/u 12/05: Pt PO fluctuates overall ~75% avg MM5/thin diet per BROKER ASSISTANT recs meeting needs. Remains ALOC AOx1 w/ metabolic encephalopathy r/t chronic etoh in addition to DX brain tumor per MD note. LBM 12/04 frequent small BM's noted. Noted restraints active w/ feeder for meals and sitter present per EMR. Pt refusing PO meds receiving D5 at 100ml/hr w/ serum Na 132; RD attempted to contact RN regarding holding D5 if MD agreeable given PO hx, low Na, and GLU WNL if MD agreeable. May benefit from IV thiamin, folic, MVI if continues to refuse PO for etoh hx if MD agreeable. Will continue to monitor. Recommendations: 1) Continue MM5/thin diet per BROKER ASSISTANT/MD recs; feeder w/ meals;encourage PO 2) routine bowel care 4) Continue routine MVI, Thiamine, and folic acid for EtOH hx; if continues to refuse PO consider IV as medically indicated if MD agreeable 5) Consider holding D5 given low serum Na, good PO hx, and GLU WNL if MD agreeable 6) Weekly scaled wts Addendum: 12/05/20 at [address] Amended: Links added.
[2020-12-05 15:00] VITALS: BP 148/85
--- NOTE | 2020-12-05 16:34 | NUR ---
Paged Dr Rodgers PAGER ID: [phone] MESSAGE: Romeo Perez [id number] Pt's heart rate sustaining in the 130's. Pt refused all am medications. Please advise. Thank you Nancy [phone]
[2020-12-05] MEDS ORDERED: metoprolol tartrate 1mg/ml inj IV ONE (17:20)
[2020-12-05] MEDS ORDERED: azithromycin/NS 500mg/250ml 250 ML IV ONE (17:20)
[2020-12-05] MEDS ORDERED: CefTRIAXone/D5W-Rocephin 1gm 50 ML IV ONE (17:20)
--- NOTE | 2020-12-05 18:05 | NUR ---
Orientee documentation: I have reviewed and agree with all interventions, assessments performed and documented by NATHAN Castro.
--- NOTE | 2020-12-05 18:05 | NUR ---
Orientee Medication Administration: For this medication-pass time frame, all medication were reviewed, dispensed, administered and documented per hospital policy by NATHAN Castro.
--- NOTE | 2020-12-05 18:10 | NUR ---
Problems reprioritized. Patient report given, questions answered & plan of care reviewed with NATHAN Lemos. Pt sitting up in bed resting comfortably, no signs of distress noted at change of shift. All pt needs met at this time.
--- NOTE | 2020-12-05 18:17 | NUR ---
Problems reprioritized. Patient report given, questions answered & plan of care reviewed with Aminta EVANS.
[2020-12-05] MEDS: acetaminophen 325mg tablet PO PRN (18:59)
[2020-12-05] MEDS: tamsulosin 0.4mg capsule PO SCH (19:02)
[2020-12-05] MEDS: insulin glargine (Lantus) pen - multi-dose SQ SCH (19:51)
[2020-12-05 22:00] VITALS: BP 103/58
[2020-12-06] VITALS (7 sets, daily range): BP systolic 106–139; BP diastolic 72–83
[2020-12-06] MEDS: ipratropium/albuterol 3ml nebule NEB SCH ×6 (03:48→23:09)
[2020-12-06 04:57] LABS: BASOPHILS % (AUTO) 0 % (0-1); EOSINOPHILS # (AUTO) 0.1 X10'3 (0-0.9); EOSINOPHILS % (AUTO) 1.4 % (0-6); HEMOGLOBIN 7.2 g/dl (14.0-17.9); LYMPHOCYTES # (AUTO) 0.5 X10'3 (1.1-4.8); LYMPHOCYTES % (AUTO) 10.1 % (21-51); MEAN CORPUSCULAR HEMOGLOBIN 33.4 PG (27.0-31.0); MEAN CORPUSCULAR HGB CONC 34.7 g/dL (33.0-36.5); MEAN CORPUSCULAR VOLUME 96.2 FL (78-98); MEAN PLATELET VOLUME 7.2 FL (7.4-10.4); MONOCYTES # (AUTO) 0.4 X10'3 (0-0.9); MONOCYTES % (AUTO) 7.6 % (2-12); NEUTROPHILS # (AUTO) 3.9 X10'3 (1.8-7.7); NEUTROPHILS % (AUTO) 80.9 % (42-75); PLATELET COUNT 145 X10'3 (140-440); RED BLOOD COUNT 2.15 X10'6 (4.70-6.10); RED CELL DISTRIBUTION WIDTH 17.8 % (11.5-14.5); WHITE BLOOD COUNT 4.8 X10'3 (4.5-11.0)
[2020-12-06 05:04] LABS: ALANINE AMINOTRANSFERASE 36 U/L (12-78); ALBUMIN 2.3 G/DL (3.4-5.0); ALBUMIN/GLOBULIN RATIO 0.6 (1.1-1.5); ALKALINE PHOSPHATASE 85 IU/L (46-116); ANION GAP 12 (8-16); ASPARTATE AMINO TRANSFERASE 34 U/L (10-37); BILIRUBIN,TOTAL 0.6 MG/DL (0.1-1.0); BLOOD UREA NITROGEN 20 MG/DL (7-18); BUN/CREATININE RATIO 23.8 (5.4-32.0); CALCIUM 8.1 MG/DL (8.5-10.1); CHLORIDE 103 MMOL/L (99-107); CREATININE 0.84 MG/DL (0.60-1.10); GLUCOSE 106 MG/DL (70-104); POTASSIUM 3.8 MMOL/L (3.5-5.1); SODIUM 133 MMOL/L (135-145); TOTAL CARBON DIOXIDE 18.4 MMOL/L (24-32); TOTAL PROTEIN 6.1 G/DL (6.4-8.2); eGFR 90 ML/MIN
[2020-12-06 05:07] LABS: HEMATOCRIT 20.7 % (42.0-52.0)
[2020-12-06] MEDS: LORazepam 2 mg/ml vial IV PRN (05:10)
[2020-12-06] MEDS: dextrose 5%-water 1,000 ML IV SCH ×2 (05:11→19:40)
--- NOTE | 2020-12-06 05:31 | NUR ---
Critical hematocrit: 20.[address] Cannon. No new orders received.
--- NOTE | 2020-12-06 06:10 | NUR ---
Patient in room PCU 3012. I have received report from Aminta EVANS and had the opportunity to ask questions and assume patient care.
[2020-12-06] MEDS: gabapentin 300mg capsule PO SCH ×2 (08:00→19:38)
[2020-12-06] MEDS: guaiFENesin 200 MG/10 ML oral syrup UD cup PO SCH ×2 (08:00→19:54)
[2020-12-06] MEDS: allopurinol 100mg tablet PO SCH ×2 (08:00→19:38)
[2020-12-06] MEDS: folic acid 1mg tablet PO SCH (08:00)
[2020-12-06] MEDS: thiamine 100mg tablet PO SCH (08:00)
[2020-12-06] MEDS: metoprolol succinate 25mg (24-HOUR) SR. Tablet PO SCH (08:00)
[2020-12-06] MEDS: nystatin 15 GM powder TP SCH ×3 (08:00→20:33)
[2020-12-06] MEDS: famotidine 20mg tablet PO SCH (08:00)
[2020-12-06] MEDS: quetiapine 100mg tablet PO SCH ×2 (08:05→19:38)
[2020-12-06] MEDS: CefTRIAXone/D5W-Rocephin 1gm 50 ML IV SCH (08:05)
[2020-12-06] MEDS: levoTHYROXINE 100mcg tablet PO SCH (08:09)
[2020-12-06] MEDS: azithromycin/NS 500mg/250ml 250 ML IV SCH (08:59)
[2020-12-06] MEDS: MULTIVIT-MIN/FERROUS GLUCONATE 9 MG/15 ML LIQUID PO SCH (09:29)
--- NOTE | 2020-12-06 14:34 | NUR ---
PAGER ID: [phone] MESSAGE: Re: Romeo Anne. Room: 3012B. Pt's sister in-law, POA, would like an update concerning Pt. Consuelo -Daniele [facility] #[phone] -Dr. Koch paged concerning Pt's family member.
--- NOTE | 2020-12-06 18:10 | NUR ---
Problems reprioritized. Patient report given, questions answered & plan of care reviewed with Aminta EVANS.
[2020-12-06] MEDS: tamsulosin 0.4mg capsule PO SCH (19:54)
[2020-12-06] MEDS: insulin glargine (Lantus) pen - multi-dose SQ SCH (20:32)
[2020-12-07 02:00] VITALS: BP 136/92
[2020-12-07] MEDS: ipratropium/albuterol 3ml nebule NEB SCH ×2 (03:22→06:40)
[2020-12-07 06:00] VITALS: BP 168/110
--- NOTE | 2020-12-07 06:10 | NUR ---
Patient in room PCU 3012. I have received report from Aminta EVANS and had the opportunity to ask questions and assume patient care.
[2020-12-07 06:36] LABS: BASOPHILS % (AUTO) 0.1 % (0-1); EOSINOPHILS # (AUTO) 0.1 X10'3 (0-0.9); EOSINOPHILS % (AUTO) 1.4 % (0-6); LYMPHOCYTES # (AUTO) 0.4 X10'3 (1.1-4.8); LYMPHOCYTES % (AUTO) 7.8 % (21-51); MEAN CORPUSCULAR HGB CONC 34.3 g/dL (33.0-36.5); MEAN CORPUSCULAR VOLUME 96.3 FL (78-98); MEAN PLATELET VOLUME 7.3 FL (7.4-10.4); MONOCYTES # (AUTO) 0.5 X10'3 (0-0.9); NEUTROPHILS # (AUTO) 4.3 X10'3 (1.8-7.7); NEUTROPHILS % (AUTO) 81.7 % (42-75); PLATELET COUNT 177 X10'3 (140-440); RED BLOOD COUNT 2.13 X10'6 (4.70-6.10); RED CELL DISTRIBUTION WIDTH 17.7 % (11.5-14.5); WHITE BLOOD COUNT 5.3 X10'3 (4.5-11.0)
[2020-12-07 06:41] LABS: HEMATOCRIT 20.5 % (42.0-52.0)
[2020-12-07 07:08] LABS: ALANINE AMINOTRANSFERASE 33 U/L (12-78); ALBUMIN 2.3 G/DL (3.4-5.0); ALBUMIN/GLOBULIN RATIO 0.6 (1.1-1.5); ALKALINE PHOSPHATASE 87 IU/L (46-116); ANION GAP 13 (8-16); ASPARTATE AMINO TRANSFERASE 27 U/L (10-37); BILIRUBIN,TOTAL 0.6 MG/DL (0.1-1.0); BLOOD UREA NITROGEN 15 MG/DL (7-18); CALCIUM 8.8 MG/DL (8.5-10.1); CHLORIDE 102 MMOL/L (99-107); CREATININE 0.79 MG/DL (0.60-1.10); GLUCOSE 102 MG/DL (70-104); SODIUM 133 MMOL/L (135-145); TOTAL PROTEIN 6.4 G/DL (6.4-8.2); eGFR > 90 ML/MIN
--- NOTE | 2020-12-07 07:13 | NUR ---
PAGER ID: [phone] MESSAGE: Re: Romeo Anne. Room: [facility]. Critical morning H&H: 7.0/20.5 -[facility] #[phone] -Dr. Koch paged concerning Pt's critical morning H&H
[2020-12-07] MEDS: CefTRIAXone/D5W-Rocephin 1gm 50 ML IV SCH (07:56)
[2020-12-07] MEDS: guaiFENesin 200 MG/10 ML oral syrup UD cup PO SCH ×2 (08:00→19:29)
[2020-12-07] MEDS: azithromycin/NS 500mg/250ml 250 ML IV SCH (08:42)
[2020-12-07] MEDS: levoTHYROXINE 100mcg tablet PO SCH (08:43)
[2020-12-07] MEDS: metoprolol succinate 25mg (24-HOUR) SR. Tablet PO SCH (08:46)
[2020-12-07] MEDS: allopurinol 100mg tablet PO SCH ×2 (08:46→19:29)
[2020-12-07] MEDS: famotidine 20mg tablet PO SCH (08:48)
[2020-12-07] MEDS: quetiapine 100mg tablet PO SCH ×3 (08:48→19:28)
[2020-12-07] MEDS: thiamine 100mg tablet PO SCH (08:49)
[2020-12-07] MEDS: folic acid 1mg tablet PO SCH (08:49)
[2020-12-07] MEDS: MULTIVIT-MIN/FERROUS GLUCONATE 9 MG/15 ML LIQUID PO SCH (08:52)
[2020-12-07] MEDS: gabapentin 300mg capsule PO SCH ×2 (08:52→19:28)
[2020-12-07] MEDS: nystatin 15 GM powder TP SCH ×3 (08:55→21:38)
[2020-12-07 11:00] VITALS: BP 137/107
[2020-12-07] MEDS: dextrose 5%-water 1,000 ML IV SCH (11:34)
[2020-12-07 13:33] LABS: MEAN CORPUSCULAR HEMOGLOBIN 32.6 PG (27.0-31.0); MEAN CORPUSCULAR HGB CONC 34.2 g/dL (33.0-36.5); MEAN CORPUSCULAR VOLUME 95.4 FL (78-98); MEAN PLATELET VOLUME 6.8 FL (7.4-10.4); PLATELET COUNT 191 X10'3 (140-440); RED BLOOD COUNT 2.16 X10'6 (4.70-6.10); RED CELL DISTRIBUTION WIDTH 17.5 % (11.5-14.5); WHITE BLOOD COUNT 4.9 X10'3 (4.5-11.0)
[2020-12-07 13:36] LABS: HEMATOCRIT 20.6 % (42.0-52.0)
--- NOTE | 2020-12-07 14:01 | NUR ---
PAGER ID: [phone] MESSAGE: Re: Romeo Anne. Room: 3012B. Critical H&H: 7.0/20.6 -Daniele [facility] #[phone] -Dr> Zee paged concerning Pt's critical H&H.
[2020-12-07 15:00] VITALS: BP 110/73
--- NOTE | 2020-12-07 15:49 | NUR ---
PAGER ID: [phone] MESSAGE: Re: Romeo Anne. Room: [facility]. Critical H&H: 7.0/20.6 -[facility] #[phone] -Dr. Koch paged concerning Pt's critical H&H.
--- NOTE | 2020-12-07 16:15 | NUR ---
Spoke with Dr. Koch concerning Pt's critical H&H of 7.0/20.6. No new orders received from Dr. Koch, stated she "wants to wait until tomorrow to see if it drops more".
[2020-12-07 18:00] VITALS: BP 122/81
--- NOTE | 2020-12-07 18:00 | NUR ---
Patient in room PCU 3010. I have received report from Daniele EVANS and had the opportunity to ask questions and assume patient care.
--- NOTE | 2020-12-07 18:15 | NUR ---
Problems reprioritized. Patient report given, questions answered & plan of care reviewed with Nora EVANS.
[2020-12-07] MEDS: LORazepam 2 mg/ml vial IV PRN (18:41)
[2020-12-07] MEDS: lactobacillus rhamnosus 10,000 MMU CELLS/CAPSULE PO SCH (19:28)
[2020-12-07] MEDS: tamsulosin 0.4mg capsule PO SCH (19:29)
[2020-12-07 22:00] VITALS: BP 97/55
[2020-12-08] VITALS (10 sets, daily range): BP systolic 102–158; BP diastolic 58–95
[2020-12-08] MEDS: dextrose 5%-water 1,000 ML IV SCH ×2 (02:05→15:20)
[2020-12-08 02:13] LABS: EOSINOPHILS # (AUTO) 0.1 X10'3 (0-0.9); EOSINOPHILS % (AUTO) 1.4 % (0-6); LYMPHOCYTES # (AUTO) 0.4 X10'3 (1.1-4.8); MEAN CORPUSCULAR HGB CONC 34.3 g/dL (33.0-36.5); MEAN CORPUSCULAR VOLUME 96.2 FL (78-98); MEAN PLATELET VOLUME 6.8 FL (7.4-10.4); MONOCYTES # (AUTO) 0.3 X10'3 (0-0.9); MONOCYTES % (AUTO) 7.4 % (2-12); NEUTROPHILS # (AUTO) 3.8 X10'3 (1.8-7.7); NEUTROPHILS % (AUTO) 82.2 % (42-75); PLATELET COUNT 204 X10'3 (140-440); RED BLOOD COUNT 1.97 X10'6 (4.70-6.10); RED CELL DISTRIBUTION WIDTH 17.5 % (11.5-14.5); WHITE BLOOD COUNT 4.6 X10'3 (4.5-11.0)
[2020-12-08 02:15] LABS: HEMATOCRIT 18.9 % (42.0-52.0); HEMOGLOBIN 6.5 g/dl (14.0-17.9)
--- NOTE | 2020-12-08 02:51 | NUR ---
CRITICAL H/H MD Cannon was made aware of the critical hemaglobin (6.5) and Hematocrit (18.9). MD Cannon ordered a new Type and Screen.
--- NOTE | 2020-12-08 06:23 | NUR ---
Problems reprioritized. Patient report given, questions answered & plan of care reviewed with Taniya EVANS.
--- NOTE | 2020-12-08 06:33 | NUR ---
Patient in room PCU 3012. I have received report from NATHAN Melendez and had the opportunity to ask questions and assume patient care.
--- NOTE | 2020-12-08 07:04 | NUR ---
notified. PAGER ID: [phone] MESSAGE: Re: Romeo Anne. [id number]. Patient has been requiring his medications crushed. He has a Metoprolol XL that cannot be crushed. Could we switch that to a metoprol tartrate that can be crushed? thanks. Also, HGB 6.5. thanks. Taniya [phone].
[2020-12-08] MEDS: LORazepam 2 mg/ml vial IV PRN ×2 (08:02→14:35)
[2020-12-08] MEDS: MULTIVIT-MIN/FERROUS GLUCONATE 9 MG/15 ML LIQUID PO SCH (08:08)
[2020-12-08] MEDS: guaiFENesin 200 MG/10 ML oral syrup UD cup PO SCH ×2 (08:11→21:57)
[2020-12-08] MEDS: CefTRIAXone/D5W-Rocephin 1gm 50 ML IV SCH (08:13)
[2020-12-08] MEDS: gabapentin 300mg capsule PO SCH ×2 (08:14→22:00)
[2020-12-08] MEDS: famotidine 20mg tablet PO SCH (08:15)
[2020-12-08] MEDS: levoTHYROXINE 100mcg tablet PO SCH (08:15)
[2020-12-08] MEDS: lactobacillus rhamnosus 10,000 MMU CELLS/CAPSULE PO SCH ×2 (08:15→21:57)
[2020-12-08] MEDS: folic acid 1mg tablet PO SCH (08:15)
[2020-12-08] MEDS: thiamine 100mg tablet PO SCH (08:15)
[2020-12-08] MEDS: allopurinol 100mg tablet PO SCH ×2 (08:20→21:57)
[2020-12-08] MEDS: nystatin 15 GM powder TP SCH ×3 (08:20→22:06)
[2020-12-08 10:39] LABS: OCCULT BLOOD STOOL NEGATIVE (Neg)
--- NOTE | 2020-12-08 11:30 | NUR ---
Patient converted into Atrial fibrillation and Atrial flutter. Dr. Koch was notified. She would like the heart rate to be monitored closely.
--- NOTE | 2020-12-08 11:38 | NUR ---
notified. PAGER ID: [phone] MESSAGE: Re; AnneRomeo. [id number]. Negative Occult stool. Blood transfusion started. thanks. Also have a question about another patient. Call when you are available. Thanks. Taniya. [phone].
[2020-12-08] MEDS: metoprolol succinate 25mg (24-HOUR) SR. Tablet PO SCH (13:03)
--- NOTE | 2020-12-08 18:05 | NUR ---
Preceptee documentation: I have reviewed and agree with all interventions, assessments performed and documented by NATHAN Hdz. Preceptee Medication Administration: For this medication-pass time frame, all medication were reviewed, dispensed, administered and documented per hospital policy by NATHAN Hdz.
[2020-12-08] MEDS: tamsulosin 0.4mg capsule PO SCH (21:57)
[2020-12-08] MEDS: quetiapine 100mg tablet PO SCH (21:57)
[2020-12-09] VITALS (7 sets, daily range): BP systolic 119–163; BP diastolic 85–103
[2020-12-09 04:33] LABS: BASOPHILS % (AUTO) 0.2 % (0-1); EOSINOPHILS # (AUTO) 0.1 X10'3 (0-0.9); EOSINOPHILS % (AUTO) 1.6 % (0-6); HEMATOCRIT 24.1 % (42.0-52.0); HEMOGLOBIN 8.2 g/dl (14.0-17.9); LYMPHOCYTES # (AUTO) 0.6 X10'3 (1.1-4.8); LYMPHOCYTES % (AUTO) 12.6 % (21-51); MEAN CORPUSCULAR HEMOGLOBIN 32.6 PG (27.0-31.0); MEAN CORPUSCULAR HGB CONC 34.2 g/dL (33.0-36.5); MEAN CORPUSCULAR VOLUME 95.4 FL (78-98); MEAN PLATELET VOLUME 6.8 FL (7.4-10.4); MONOCYTES # (AUTO) 0.4 X10'3 (0-0.9); MONOCYTES % (AUTO) 9.2 % (2-12); NEUTROPHILS # (AUTO) 3.4 X10'3 (1.8-7.7); NEUTROPHILS % (AUTO) 76.4 % (42-75); PLATELET COUNT 233 X10'3 (140-440); RED BLOOD COUNT 2.52 X10'6 (4.70-6.10); RED CELL DISTRIBUTION WIDTH 17.2 % (11.5-14.5); WHITE BLOOD COUNT 4.5 X10'3 (4.5-11.0)
[2020-12-09 04:52] LABS: ALANINE AMINOTRANSFERASE 28 U/L (12-78); ALBUMIN 1.8 G/DL (3.4-5.0); ALBUMIN/GLOBULIN RATIO 0.5 (1.1-1.5); ALKALINE PHOSPHATASE 88 IU/L (46-116); ANION GAP 10 (8-16); ASPARTATE AMINO TRANSFERASE 20 U/L (10-37); BILIRUBIN,TOTAL 0.4 MG/DL (0.1-1.0); BLOOD UREA NITROGEN 9 MG/DL (7-18); BUN/CREATININE RATIO 13.6 (5.4-32.0); CALCIUM 8.4 MG/DL (8.5-10.1); CHLORIDE 106 MMOL/L (99-107); CREATININE 0.66 MG/DL (0.60-1.10); GLUCOSE 115 MG/DL (70-104); POTASSIUM 3.3 MMOL/L (3.5-5.1); SODIUM 135 MMOL/L (135-145); TOTAL CARBON DIOXIDE 19.5 MMOL/L (24-32); TOTAL PROTEIN 5.7 G/DL (6.4-8.2); eGFR > 90 ML/MIN
[2020-12-09] MEDS: dextrose 5%-water 1,000 ML IV SCH ×2 (05:38→19:08)
--- NOTE | 2020-12-09 06:19 | NUR ---
Patient in room PCU 3012. I have received report from Aminta EVANS and had the opportunity to ask questions and assume patient care.
[2020-12-09] MEDS: LORazepam 2 mg/ml vial IV PRN ×3 (08:26→17:49)
[2020-12-09] MEDS: lactobacillus rhamnosus 10,000 MMU CELLS/CAPSULE PO SCH ×2 (08:29→20:00)
[2020-12-09] MEDS: levoTHYROXINE 100mcg tablet PO SCH (08:29)
[2020-12-09] MEDS: famotidine 20mg tablet PO SCH (08:29)
[2020-12-09] MEDS: MULTIVIT-MIN/FERROUS GLUCONATE 9 MG/15 ML LIQUID PO SCH (08:29)
[2020-12-09] MEDS: thiamine 100mg tablet PO SCH (08:29)
[2020-12-09] MEDS: potassium Cl 20 mEq SR tablet PO PRN (08:29)
[2020-12-09] MEDS: guaiFENesin 200 MG/10 ML oral syrup UD cup PO SCH ×2 (08:29→20:00)
[2020-12-09] MEDS: gabapentin 300mg capsule PO SCH ×2 (08:30→20:00)
[2020-12-09] MEDS: metoprolol succinate 25mg (24-HOUR) SR. Tablet PO SCH (08:30)
[2020-12-09] MEDS: allopurinol 100mg tablet PO SCH ×2 (08:30→20:00)
[2020-12-09] MEDS: folic acid 1mg tablet PO SCH (08:30)
[2020-12-09] MEDS: nystatin 15 GM powder TP SCH ×3 (08:30→19:53)
--- NOTE | 2020-12-09 18:20 | NUR ---
Problems reprioritized. Patient report given, questions answered & plan of care reviewed with Aminta EVANS.
[2020-12-09] MEDS: Potassium Cl inj 40 MEQ in normal saline 250ml IV soln 250 ML IV PRN (19:53)
[2020-12-09] MEDS: tamsulosin 0.4mg capsule PO SCH (20:23)
[2020-12-09] MEDS: quetiapine 100mg tablet PO SCH (21:00)
[2020-12-10] VITALS (7 sets, daily range): BP systolic 89–155; BP diastolic 57–86
--- NOTE | 2020-12-10 06:41 | NUR ---
Patient in room PCU 3012. I have received report from Aminta EVANS and had the opportunity to ask questions and assume patient care.
[2020-12-10 07:00] LABS: BASOPHILS % (AUTO) 0.2 % (0-1); EOSINOPHILS % (AUTO) 0.8 % (0-6); HEMOGLOBIN 8.3 g/dl (14.0-17.9); LYMPHOCYTES # (AUTO) 0.6 X10'3 (1.1-4.8); LYMPHOCYTES % (AUTO) 11.4 % (21-51); MEAN CORPUSCULAR HEMOGLOBIN 32.6 PG (27.0-31.0); MEAN CORPUSCULAR HGB CONC 34.5 g/dL (33.0-36.5); MEAN CORPUSCULAR VOLUME 94.4 FL (78-98); MEAN PLATELET VOLUME 6.8 FL (7.4-10.4); MONOCYTES # (AUTO) 0.6 X10'3 (0-0.9); NEUTROPHILS # (AUTO) 4.4 X10'3 (1.8-7.7); NEUTROPHILS % (AUTO) 76.6 % (42-75); PLATELET COUNT 318 X10'3 (140-440); RED BLOOD COUNT 2.54 X10'6 (4.70-6.10); RED CELL DISTRIBUTION WIDTH 16.6 % (11.5-14.5); WHITE BLOOD COUNT 5.7 X10'3 (4.5-11.0)
[2020-12-10 07:25] LABS: ALANINE AMINOTRANSFERASE 29 U/L (12-78); ALBUMIN 2.1 G/DL (3.4-5.0); ALBUMIN/GLOBULIN RATIO 0.5 (1.1-1.5); ALKALINE PHOSPHATASE 94 IU/L (46-116); ANION GAP 10 (8-16); ASPARTATE AMINO TRANSFERASE 26 U/L (10-37); BILIRUBIN,TOTAL 0.5 MG/DL (0.1-1.0); BLOOD UREA NITROGEN 9 MG/DL (7-18); BUN/CREATININE RATIO 12.5 (5.4-32.0); CALCIUM 8.5 MG/DL (8.5-10.1); CHLORIDE 105 MMOL/L (99-107); CREATININE 0.72 MG/DL (0.60-1.10); GLUCOSE 95 MG/DL (70-104); POTASSIUM 4.1 MMOL/L (3.5-5.1); SODIUM 134 MMOL/L (135-145); TOTAL CARBON DIOXIDE 18.8 MMOL/L (24-32); TOTAL PROTEIN 6.2 G/DL (6.4-8.2); eGFR > 90 ML/MIN
[2020-12-10] MEDS: gabapentin 300mg capsule PO SCH ×2 (09:35→21:40)
[2020-12-10] MEDS: guaiFENesin 200 MG/10 ML oral syrup UD cup PO SCH ×2 (09:35→20:00)
[2020-12-10] MEDS: MULTIVIT-MIN/FERROUS GLUCONATE 9 MG/15 ML LIQUID PO SCH (09:35)
[2020-12-10] MEDS: folic acid 1mg tablet PO SCH (09:36)
[2020-12-10] MEDS: famotidine 20mg tablet PO SCH (09:36)
[2020-12-10] MEDS: lactobacillus rhamnosus 10,000 MMU CELLS/CAPSULE PO SCH ×2 (09:36→21:40)
[2020-12-10] MEDS: levoTHYROXINE 100mcg tablet PO SCH (09:36)
[2020-12-10] MEDS: allopurinol 100mg tablet PO SCH ×2 (09:36→21:40)
[2020-12-10] MEDS: metoprolol succinate 25mg (24-HOUR) SR. Tablet PO SCH (09:36)
[2020-12-10] MEDS: nystatin 15 GM powder TP SCH ×3 (09:37→21:41)
[2020-12-10] MEDS: thiamine 100mg tablet PO SCH (09:37)
[2020-12-10] MEDS: dextrose 5%-water 1,000 ML IV SCH (10:16)
[2020-12-10] MEDS: LORazepam 2 mg/ml vial IV PRN (10:16)
[2020-12-10 10:57] LABS: EOSINOPHILS % (MANUAL) 0 % (0-6); LYMPHOCYTES % (MANUAL) 10 % (21-51); TOTAL CELLS COUNTED 200
[2020-12-10 10:58] LABS: ANISOCYTOSIS 1+; PLATELET ESTIMATE NORMAL; ROULEAUX 1+
[2020-12-10 10:59] LABS: ELLIPTOCYTES FEW; SCHISTOCYTES FEW; TEAR DROP CELLS FEW
--- NOTE | 2020-12-10 13:28 | NUR ---
F/u 12/10: Pt PO declining ~25-50% avg meals now consistently refusing dinner per EMR partially meeting needs. PO likely impacting by ALOC AOx1 in restraints w/ feeder at meals per EMR. RD d/w RN who reports pt typically eager to eat during the day when fed likely to drink ONS. Given PO trends RD recommends ensure enlive BIDBL for additional protein/kcals; MD notified. Noted Na 134 up from 132 prior w/ D5 rate down to 70ml/hr from prior 100ml/hr; now providing additional 286kcals/day. LBM 12/10 small; noted rectal tube removed 12/08 though only output noted 12/04-12/05 in EMR. Will continue to monitor for PO trends and ONS acceptance. Recommendations: 1) Continue MM5/thin diet per PLATE PAINTER/MD recs; feeder w/ meals;encourage PO 2) Ensure Enlive BIDBL for additional protein/kcals; pending MD verification in EMR 3) routine bowel care 4) Continue routine MVI, Thiamine, and folic acid for EtOH hx 5) Consider holding D5 given low serum Na and GLU WNL if MD agreeable 6) Weekly scaled wts Addendum: 12/10/20 at [address] Amended: Links added.
[2020-12-10] MEDS: tamsulosin 0.4mg capsule PO SCH (21:40)
[2020-12-10] MEDS: quetiapine 100mg tablet PO SCH (21:40)
[2020-12-11] MEDS: dextrose 5%-water 1,000 ML IV SCH ×2 (00:21→14:50)
[2020-12-11 02:00] VITALS: BP 104/68
[2020-12-11 04:57] LABS: BASOPHILS % (AUTO) 0.2 % (0-1); EOSINOPHILS # (AUTO) 0.1 X10'3 (0-0.9); HEMATOCRIT 23.8 % (42.0-52.0); HEMOGLOBIN 8.2 g/dl (14.0-17.9); LYMPHOCYTES # (AUTO) 0.9 X10'3 (1.1-4.8); LYMPHOCYTES % (AUTO) 16.8 % (21-51); MEAN CORPUSCULAR HEMOGLOBIN 32.2 PG (27.0-31.0); MEAN CORPUSCULAR HGB CONC 34.4 g/dL (33.0-36.5); MEAN CORPUSCULAR VOLUME 93.6 FL (78-98); MEAN PLATELET VOLUME 6.5 FL (7.4-10.4); MONOCYTES # (AUTO) 0.8 X10'3 (0-0.9); MONOCYTES % (AUTO) 14.7 % (2-12); NEUTROPHILS # (AUTO) 3.5 X10'3 (1.8-7.7); NEUTROPHILS % (AUTO) 67.3 % (42-75); PLATELET COUNT 313 X10'3 (140-440); RED BLOOD COUNT 2.54 X10'6 (4.70-6.10); RED CELL DISTRIBUTION WIDTH 16.8 % (11.5-14.5); WHITE BLOOD COUNT 5.1 X10'3 (4.5-11.0)
[2020-12-11 05:09] LABS: ALANINE AMINOTRANSFERASE 24 U/L (12-78); ALBUMIN 1.9 G/DL (3.4-5.0); ALBUMIN/GLOBULIN RATIO 0.5 (1.1-1.5); ALKALINE PHOSPHATASE 89 IU/L (46-116); ANION GAP 7 (8-16); ASPARTATE AMINO TRANSFERASE 28 U/L (10-37); BILIRUBIN,TOTAL 0.6 MG/DL (0.1-1.0); BLOOD UREA NITROGEN 6 MG/DL (7-18); CALCIUM 8.4 MG/DL (8.5-10.1); CHLORIDE 103 MMOL/L (99-107); CREATININE 0.67 MG/DL (0.60-1.10); GLUCOSE 101 MG/DL (70-104); POTASSIUM 3.3 MMOL/L (3.5-5.1); SODIUM 132 MMOL/L (135-145); TOTAL CARBON DIOXIDE 21.9 MMOL/L (24-32); TRIGLYCERIDES 108 MG/DL (20-135); eGFR > 90 ML/MIN
[2020-12-11 05:41] LABS: TOTAL CELLS COUNTED 100
[2020-12-11 05:42] LABS: ANISOCYTOSIS 1+; ELLIPTOCYTES FEW; PLATELET ESTIMATE NORMAL; POLYCHROMASIA FEW; SCHISTOCYTES FEW
--- NOTE | 2020-12-11 06:48 | NUR ---
Patient in room PCU 3012. I have received report from Aminta EVANS and had the opportunity to ask questions and assume patient care.
[2020-12-11 07:00] VITALS: BP 129/85
[2020-12-11] MEDS ORDERED: potassium Cl 20 mEq SR tablet PO PRN (07:00)
[2020-12-11] MEDS ORDERED: potassium Cl 40MEQ/1/2NS 520ml 520 ML IV PRN (07:00)
[2020-12-11] MEDS: lactose-reduced food (Ensure Enlive) - 237ml bottle PO SCH ×2 (07:30→12:30)
[2020-12-11] MEDS: famotidine 20mg tablet PO SCH (08:27)
[2020-12-11] MEDS: lactobacillus rhamnosus 10,000 MMU CELLS/CAPSULE PO SCH ×2 (08:27→20:09)
[2020-12-11] MEDS: guaiFENesin 200 MG/10 ML oral syrup UD cup PO SCH ×2 (08:27→20:12)
[2020-12-11] MEDS: MULTIVIT-MIN/FERROUS GLUCONATE 9 MG/15 ML LIQUID PO SCH (08:27)
[2020-12-11] MEDS: gabapentin 300mg capsule PO SCH ×2 (08:27→20:09)
[2020-12-11] MEDS: metoprolol succinate 25mg (24-HOUR) SR. Tablet PO SCH (08:27)
[2020-12-11] MEDS: levoTHYROXINE 100mcg tablet PO SCH (08:30)
[2020-12-11] MEDS: allopurinol 100mg tablet PO SCH ×2 (08:30→20:09)
[2020-12-11] MEDS: folic acid 1mg tablet PO SCH (08:30)
[2020-12-11] MEDS: potassium Cl 20 mEq SR tablet PO PRN ×3 (08:31→20:10)
[2020-12-11] MEDS: thiamine 100mg tablet PO SCH (08:31)
[2020-12-11] MEDS: nystatin 15 GM powder TP SCH ×3 (08:34→20:11)
[2020-12-11 11:00] VITALS: BP 125/89
[2020-12-11 15:00] VITALS: BP 149/112
[2020-12-11] MEDS: acetaminophen 325mg tablet PO PRN (16:58)
[2020-12-11 18:00] VITALS: BP 151/99
--- NOTE | 2020-12-11 18:20 | NUR ---
Problems reprioritized. Patient report given, questions answered & plan of care reviewed with Aminta EVANS.
[2020-12-11] MEDS: tamsulosin 0.4mg capsule PO SCH (20:09)
[2020-12-11] MEDS: quetiapine 100mg tablet PO SCH (20:10)
[2020-12-11 22:00] VITALS: BP 122/90
[2020-12-12 02:00] VITALS: BP 112/81
[2020-12-12 04:29] LABS: BASOPHILS % (AUTO) 0.4 % (0-1); EOSINOPHILS # (AUTO) 0.1 X10'3 (0-0.9); EOSINOPHILS % (AUTO) 1.2 % (0-6); HEMATOCRIT 24.3 % (42.0-52.0); HEMOGLOBIN 8.5 g/dl (14.0-17.9); LYMPHOCYTES # (AUTO) 1.1 X10'3 (1.1-4.8); LYMPHOCYTES % (AUTO) 21.4 % (21-51); MEAN CORPUSCULAR VOLUME 94.2 FL (78-98); MEAN PLATELET VOLUME 6.5 FL (7.4-10.4); MONOCYTES # (AUTO) 0.7 X10'3 (0-0.9); MONOCYTES % (AUTO) 14.1 % (2-12); NEUTROPHILS # (AUTO) 3.2 X10'3 (1.8-7.7); NEUTROPHILS % (AUTO) 62.9 % (42-75); PLATELET COUNT 340 X10'3 (140-440); RED BLOOD COUNT 2.58 X10'6 (4.70-6.10); RED CELL DISTRIBUTION WIDTH 16.4 % (11.5-14.5); WHITE BLOOD COUNT 5.1 X10'3 (4.5-11.0)
[2020-12-12 04:33] LABS: ALBUMIN 2.1 G/DL (3.4-5.0); ANION GAP 6 (8-16); BLOOD UREA NITROGEN 7 MG/DL (7-18); BUN/CREATININE RATIO 10.4 (5.4-32.0); CALCIUM 8.7 MG/DL (8.5-10.1); CHLORIDE 107 MMOL/L (99-107); CREATININE 0.67 MG/DL (0.60-1.10); GLUCOSE 101 MG/DL (70-104); POTASSIUM 3.7 MMOL/L (3.5-5.1); SODIUM 136 MMOL/L (135-145); TOTAL CARBON DIOXIDE 23.3 MMOL/L (24-32); eGFR > 90 ML/MIN
[2020-12-12] MEDS: dextrose 5%-water 1,000 ML IV SCH ×2 (04:54→21:12)
[2020-12-12 05:11] LABS: ANISOCYTOSIS 1+; NUCLEATED RED BLOOD CELLS 1 /100WBC (0-0); PLATELET ESTIMATE NORMAL; TOTAL CELLS COUNTED 100
[2020-12-12 05:12] LABS: BURR CELLS 1+; POLYCHROMASIA FEW
[2020-12-12 07:00] VITALS: BP 138/74
--- NOTE | 2020-12-12 07:02 | NUR ---
Patient in room PCU 3012. I have received report from Aminta EVANS and had the opportunity to ask questions and assume patient care. Pt supine to the right, in bed, mood disgruntled with disjointed, random word salad statements, including requests for pumpkin pie. alert to voice, heels floated, sitter at bedside. no sob, SRx2, BLL, CL within reach. no s/sx acute distress. pt unable to participate in meaningful conversation.
[2020-12-12] MEDS: nystatin 15 GM powder TP SCH ×3 (08:00→21:14)
[2020-12-12] MEDS: lactobacillus rhamnosus 10,000 MMU CELLS/CAPSULE PO SCH ×2 (08:43→21:13)
[2020-12-12] MEDS: levoTHYROXINE 100mcg tablet PO SCH (08:43)
[2020-12-12] MEDS: metoprolol succinate 25mg (24-HOUR) SR. Tablet PO SCH (08:43)
[2020-12-12] MEDS: allopurinol 100mg tablet PO SCH ×2 (08:43→21:12)
[2020-12-12] MEDS: MULTIVIT-MIN/FERROUS GLUCONATE 9 MG/15 ML LIQUID PO SCH (08:44)
[2020-12-12] MEDS: thiamine 100mg tablet PO SCH (08:44)
[2020-12-12] MEDS: guaiFENesin 200 MG/10 ML oral syrup UD cup PO SCH ×2 (08:44→20:00)
[2020-12-12] MEDS: famotidine 20mg tablet PO SCH (08:44)
[2020-12-12] MEDS: gabapentin 300mg capsule PO SCH ×2 (08:44→21:13)
[2020-12-12] MEDS: folic acid 1mg tablet PO SCH (08:44)
[2020-12-12] MEDS: lactose-reduced food (Ensure Enlive) - 237ml bottle PO SCH ×2 (08:45→12:30)
[2020-12-12 11:00] VITALS: BP 144/96
[2020-12-12 15:00] VITALS: BP 150/96
--- NOTE | 2020-12-12 17:30 | NUR ---
Pt behavior improved. Pt continues without a sitter at bedside. Pt not pulling at lines. pt occasionally calls out with sporadic requests. makes simple needs known, however requests mildly word salad. Pt following simple commands, and making simple needs known. needs anticipated and met. pt repositions himself frequently in the bed, however compliant floating heels this shift. no attempts made to get out of bed. pt content at this hour, intermittently looking out the window and watching tv. no s/sx acute distress.
--- NOTE | 2020-12-12 18:30 | NUR ---
Problems reprioritized. Patient report given, questions answered & plan of care reviewed with Dale RN. Pt alert to voice, continues with mild word salad, follows simple commands. no s/sx acute distress
--- NOTE | 2020-12-12 18:49 | NUR ---
Patient in room PCU 3026. I have received report from Haley EVANS and had the opportunity to ask questions and assume patient care.
[2020-12-12] MEDS: quetiapine 100mg tablet PO SCH (21:13)
[2020-12-12] MEDS: tamsulosin 0.4mg capsule PO SCH (21:13)
[2020-12-12 22:00] VITALS: BP 109/58
[2020-12-13 02:00] VITALS: BP 115/75
--- NOTE | 2020-12-13 06:15 | NUR ---
Patient in room PCU 3026. I have received report from Aminta EVANS and had the opportunity to ask questions and assume patient care. Pt supine in bed, HOB raised to 30 degrees, pt calm at this time, simple education completed secondary to increasing p.o. fluids. pt F/C patent, draining to gravity. IV patent with D5W @ 70ml. SRx2, BLL, CL within reach, no s/sx acute distress or behavioral issues.
[2020-12-13 07:00] VITALS: BP 151/98
[2020-12-13] MEDS: allopurinol 100mg tablet PO SCH ×2 (09:18→20:00)
[2020-12-13] MEDS: famotidine 20mg tablet PO SCH (09:18)
[2020-12-13] MEDS: levoTHYROXINE 100mcg tablet PO SCH (09:18)
[2020-12-13] MEDS: gabapentin 300mg capsule PO SCH ×3 (09:18→22:10)
[2020-12-13] MEDS: folic acid 1mg tablet PO SCH (09:19)
[2020-12-13] MEDS: lactobacillus rhamnosus 10,000 MMU CELLS/CAPSULE PO SCH ×2 (09:19→20:00)
[2020-12-13] MEDS: metoprolol succinate 25mg (24-HOUR) SR. Tablet PO SCH (09:19)
[2020-12-13] MEDS: lactose-reduced food (Ensure Enlive) - 237ml bottle PO SCH ×2 (09:20→12:30)
[2020-12-13] MEDS: thiamine 100mg tablet PO SCH (09:20)
[2020-12-13] MEDS: guaiFENesin 200 MG/10 ML oral syrup UD cup PO SCH ×2 (09:21→20:00)
[2020-12-13] MEDS: MULTIVIT-MIN/FERROUS GLUCONATE 9 MG/15 ML LIQUID PO SCH (09:22)
[2020-12-13] MEDS: nystatin 15 GM powder TP SCH ×3 (09:25→21:50)
[2020-12-13] MEDS: dextrose 5%-water 1,000 ML IV SCH (09:26)
--- NOTE | 2020-12-13 10:25 | NUR ---
Reassessment: Pt continues on MM5 diet with thin liquids per ST recs with most recent BSS 12/12. Pt with average 50% PO intake of meals though refuses most dinners however documented with 75-100% PO intake at dinner 12/11. Pt A/O x 1, confused, and resistive to care per physical assessment. Pt documented to be receiving moderate to total assist with meals. Pt receiving Ensure Enlive BIDBL with 50% PO intake of ONS. Combined PO intake of meals and ONS meeting roughly 64% estimated energy needs and 44% estimated protein needs. D/w dietary to send a shake BIDBL, yogurt WB, and cottage cheese WL to optimize PO intake. No nutrition intervention for dinners at this time given frequent refusals of dinner. Will adjust nutrition intervention recommendations as appropriate pending further trends in PO intake. LBM 12/11 with no bowel care. D/w dietary to send prune juice with next meal to assist with bowel regularity, though pt would benefit from routine bowel care. Will continue to follow closely and make recommendations as appropriate. Recommendations: 1) Continue MM5/thin diet per HAND REAMER/MD recs; feeder with meals;encourage PO 2) Ensure Enlive BIDBL; milkshake BIDBL, yogurt WB, cottage cheese WL; adjust pending further trends in PO intake 3) Routine bowel care 4) Continue routine MVI, Thiamine, and Folic acid for EtOH hx 5) Consider holding D5 given low serum Na and GLU WNL if MD agreeable 6) Weekly scaled wts Addendum: 12/13/20 at [address] Amended: Links added.
[2020-12-13 11:00] VITALS: BP 129/79
--- NOTE | 2020-12-13 13:10 | NUR ---
Spoke to Consuelo Anne, patient's relative at the request of Dr Linares. Patient's family member states that she would like the patient to be placed in terminal worker care on hospice. She feels this is the best option, given his health. She stated if there is a facility that would allow him to take his dogs, that would be great, but she understands if that is nota possibility.
[2020-12-13 15:00] VITALS: BP 159/99
[2020-12-13 19:00] VITALS: BP 145/82
[2020-12-13] MEDS: quetiapine 100mg tablet PO SCH ×2 (21:50→22:13)
[2020-12-13] MEDS: tamsulosin 0.4mg capsule PO SCH ×2 (21:50→22:12)
[2020-12-13 23:00] VITALS: BP 154/79
[2020-12-14 03:00] VITALS: BP 149/96
--- NOTE | 2020-12-14 06:12 | NUR ---
Patient in room PCU 3026. I have received report from Tatum EVANS and had the opportunity to ask questions and assume patient care.
[2020-12-14 07:00] VITALS: BP 127/82
[2020-12-14] MEDS: MULTIVIT-MIN/FERROUS GLUCONATE 9 MG/15 ML LIQUID PO SCH (08:12)
[2020-12-14] MEDS: famotidine 20mg tablet PO SCH (08:12)
[2020-12-14] MEDS: guaiFENesin 200 MG/10 ML oral syrup UD cup PO SCH ×2 (08:12→20:00)
[2020-12-14] MEDS: nystatin 15 GM powder TP SCH ×3 (08:12→20:24)
[2020-12-14] MEDS: levoTHYROXINE 100mcg tablet PO SCH (08:13)
[2020-12-14] MEDS: folic acid 1mg tablet PO SCH (08:13)
[2020-12-14] MEDS: lactose-reduced food (Ensure Enlive) - 237ml bottle PO SCH ×2 (08:13→12:30)
[2020-12-14] MEDS: metoprolol succinate 25mg (24-HOUR) SR. Tablet PO SCH (08:13)
[2020-12-14] MEDS: lactobacillus rhamnosus 10,000 MMU CELLS/CAPSULE PO SCH ×2 (08:13→20:23)
[2020-12-14] MEDS: allopurinol 100mg tablet PO SCH ×2 (08:13→20:24)
[2020-12-14] MEDS: thiamine 100mg tablet PO SCH (08:13)
--- NOTE | 2020-12-14 13:02 | NUR ---
Attempted to give report to Med Surg. Will try again.
--- NOTE | 2020-12-14 13:28 | NUR ---
Problems reprioritized. Patient report given, questions answered & plan of care reviewed with Juancho EVANS in Med Surg. VSS per MD orders. Patient transported via gurney to room 360B
--- NOTE | 2020-12-14 13:34 | NUR ---
Patient wa transferred via gurney to room 360B. Juancho EVANS and aides assisted and helped. All items collectd and meds and chart sent with pt.
[2020-12-14] MEDS: dextrose 5%-water 1,000 ML IV SCH ×2 (13:57→14:20)
[2020-12-14 18:00] VITALS: BP 163/97
--- NOTE | 2020-12-14 18:27 | NUR ---
Patient in room BAO 360. I have received report from RENETTA EVANS and had the opportunity to ask questions and assume patient care.
[2020-12-14] MEDS: tamsulosin 0.4mg capsule PO SCH (20:23)
[2020-12-14] MEDS: gabapentin 300mg capsule PO SCH (20:24)
[2020-12-14] MEDS: quetiapine 100mg tablet PO SCH (20:25)
[2020-12-15] MEDS: dextrose 5%-water 1,000 ML IV SCH ×2 (04:11→17:20)
--- NOTE | 2020-12-15 06:26 | NUR ---
Problems reprioritized. Patient report given, questions answered & plan of care reviewed with BRITTANI EVANS.
--- NOTE | 2020-12-15 07:11 | NUR ---
Patient in room BAO 360. I have received report from NATHAN Cagle and had the opportunity to ask questions and assume patient care.
[2020-12-15 08:00] VITALS: BP 166/91
[2020-12-15] MEDS: guaiFENesin 200 MG/10 ML oral syrup UD cup PO SCH ×2 (08:00→20:29)
[2020-12-15] MEDS: metoprolol succinate 25mg (24-HOUR) SR. Tablet PO SCH (09:13)
[2020-12-15] MEDS: lactose-reduced food (Ensure Enlive) - 237ml bottle PO SCH ×2 (09:13→13:36)
[2020-12-15] MEDS: folic acid 1mg tablet PO SCH (09:13)
[2020-12-15] MEDS: gabapentin 300mg capsule PO SCH ×2 (09:13→20:29)
[2020-12-15] MEDS: famotidine 20mg tablet PO SCH (09:14)
[2020-12-15] MEDS: levoTHYROXINE 100mcg tablet PO SCH (09:14)
[2020-12-15] MEDS: lactobacillus rhamnosus 10,000 MMU CELLS/CAPSULE PO SCH ×2 (09:14→20:29)
[2020-12-15] MEDS: MULTIVIT-MIN/FERROUS GLUCONATE 9 MG/15 ML LIQUID PO SCH (09:14)
[2020-12-15] MEDS: thiamine 100mg tablet PO SCH (09:14)
[2020-12-15] MEDS: allopurinol 100mg tablet PO SCH ×2 (09:14→20:29)
[2020-12-15] MEDS: nystatin 15 GM powder TP SCH ×3 (09:15→20:30)
[2020-12-15 12:00] VITALS: BP 139/94
[2020-12-15 19:00] VITALS: BP 130/71
--- NOTE | 2020-12-15 19:24 | NUR ---
Patient in room BAO 360. I have received report from BRITTANI EVANS and had the opportunity to ask questions and assume patient care.
--- NOTE | 2020-12-15 19:35 | NUR ---
Problems reprioritized. Patient report given, questions answered & plan of care reviewed with NATHAN Buitrago.
[2020-12-15] MEDS: quetiapine 100mg tablet PO SCH (20:29)
[2020-12-15] MEDS: tamsulosin 0.4mg capsule PO SCH (20:29)
[2020-12-16] MEDS: dextrose 5%-water 1,000 ML IV SCH (05:02)
--- NOTE | 2020-12-16 06:30 | NUR ---
Patient in room BAO 360. I have received report from NATHAN Buitrago and had the opportunity to ask questions and assume patient care.
--- NOTE | 2020-12-16 06:35 | NUR ---
Problems reprioritized. Patient report given, questions answered & plan of care reviewed with AUSTIN RN.
[2020-12-16 07:33] VITALS: BP 111/81
[2020-12-16] MEDS: lactose-reduced food (Ensure Enlive) - 237ml bottle PO SCH ×2 (08:00→12:41)
[2020-12-16] MEDS: gabapentin 300mg capsule PO SCH ×2 (09:27→21:01)
[2020-12-16] MEDS: allopurinol 100mg tablet PO SCH ×2 (09:27→21:01)
[2020-12-16] MEDS: MULTIVIT-MIN/FERROUS GLUCONATE 9 MG/15 ML LIQUID PO SCH (09:27)
[2020-12-16] MEDS: thiamine 100mg tablet PO SCH (09:27)
[2020-12-16] MEDS: lactobacillus rhamnosus 10,000 MMU CELLS/CAPSULE PO SCH ×2 (09:27→21:01)
[2020-12-16] MEDS: levoTHYROXINE 100mcg tablet PO SCH (09:27)
[2020-12-16] MEDS: guaiFENesin 200 MG/10 ML oral syrup UD cup PO SCH ×2 (09:27→20:57)
[2020-12-16] MEDS: metoprolol succinate 25mg (24-HOUR) SR. Tablet PO SCH (09:27)
[2020-12-16] MEDS: famotidine 20mg tablet PO SCH (09:27)
[2020-12-16] MEDS: folic acid 1mg tablet PO SCH (09:28)
[2020-12-16] MEDS: nystatin 15 GM powder TP SCH ×2 (09:29→21:02)
[2020-12-16 11:50] VITALS: BP 110/66
--- NOTE | 2020-12-16 15:32 | NUR ---
F/u 12/16: Pt PO continues to fluctuate ~50-75% ensure enlive BIDBL and overall ~25-50% avg meals w/ occasional 75-100% breakfast/lunch today. Partially meeting needs though likely closer to kcal/protein goals w/ prior high kcal food provisions at meals listed below. LBM 12/14. RD d/w RN regarding stopping D5 at 70ml/hr if MD agreeable given no labs since 12/12 and serum Na low previously. Will continue to monitor. Recommendations: 1) Continue MM5/thin diet per OPERATIONS RECRUITER/MD recs; feeder with meals;encourage PO 2) Ensure Enlive BIDBL; milkshake BIDBL, yogurt WB, cottage cheese WL; adjust pending further trends in PO intake 3) Routine bowel care 4) Continue routine MVI, Thiamine, and Folic acid for EtOH hx 5) Consider holding D5 given low serum Na and GLU WNL if MD agreeable 6) Weekly scaled wts Addendum: 12/16/20 at [address] Amended: Links added.
[2020-12-16] MEDS: LORazepam 2 mg/ml vial IV PRN ×2 (16:33→21:20)
--- NOTE | 2020-12-16 18:40 | NUR ---
Problems reprioritized. Patient report given, questions answered & plan of care reviewed with Kay RN.
[2020-12-16 19:30] VITALS: BP 147/95
[2020-12-16] MEDS: acetaminophen 325mg tablet PO PRN (21:00)
[2020-12-16] MEDS: tamsulosin 0.4mg capsule PO SCH (21:01)
[2020-12-16] MEDS: quetiapine 100mg tablet PO SCH (21:01)
[2020-12-16 23:30] VITALS: BP 100/72
--- NOTE | 2020-12-17 06:57 | NUR ---
Patient in room BAO 360. I have received report from PAT RN and had the opportunity to ask questions and assume patient care.
[2020-12-17] MEDS: lactose-reduced food (Ensure Enlive) - 237ml bottle PO SCH ×2 (07:30→13:11)
[2020-12-17 08:00] VITALS: BP 125/81
[2020-12-17] MEDS: nystatin 15 GM powder TP SCH ×2 (08:00→20:10)
[2020-12-17] MEDS: thiamine 100mg tablet PO SCH (08:57)
[2020-12-17] MEDS: MULTIVIT-MIN/FERROUS GLUCONATE 9 MG/15 ML LIQUID PO SCH (08:57)
[2020-12-17] MEDS: folic acid 1mg tablet PO SCH (08:57)
[2020-12-17] MEDS: gabapentin 300mg capsule PO SCH ×2 (08:57→20:09)
[2020-12-17] MEDS: metoprolol succinate 25mg (24-HOUR) SR. Tablet PO SCH (08:57)
[2020-12-17] MEDS: famotidine 20mg tablet PO SCH (08:57)
[2020-12-17] MEDS: allopurinol 100mg tablet PO SCH ×2 (08:57→20:09)
[2020-12-17] MEDS: lactobacillus rhamnosus 10,000 MMU CELLS/CAPSULE PO SCH ×2 (08:57→20:09)
[2020-12-17] MEDS: acetaminophen 325mg tablet PO PRN (09:04)
[2020-12-17] MEDS: levoTHYROXINE 100mcg tablet PO SCH (09:05)
[2020-12-17] MEDS: guaiFENesin 200 MG/10 ML oral syrup UD cup PO SCH ×2 (09:05→20:24)
[2020-12-17] MEDS: LORazepam 2 mg/ml vial IV PRN ×2 (10:52→20:05)
--- NOTE | 2020-12-17 10:54 | NUR ---
patient compliant in taking pills, became agitated yelling out and wanting to climb out of bed to see his "dogs". patient medicated with Ativan will continue to monitor.
[2020-12-17 11:00] VITALS: BP 126/74
--- NOTE | 2020-12-17 18:55 | NUR ---
Problems reprioritized. Patient report given, questions answered & plan of care reviewed with florencia EVANS.
[2020-12-17 19:54] VITALS: BP 164/66
[2020-12-17] MEDS: tamsulosin 0.4mg capsule PO SCH (20:10)
[2020-12-17] MEDS: quetiapine 100mg tablet PO SCH (20:10)
--- NOTE | 2020-12-17 21:53 | NUR ---
I have received report from Emma EVANS and had the opportunity to ask questions and assume patient care.
--- NOTE | 2020-12-17 23:01 | NUR ---
paged regarding pt: pt is painful and anxious. pt was given 1mg Ativan and is still restless/anxious. pt does not have anything for pain. could he please have iv pain medication? and /or something more for agitation IV? pt spits out pills.
[2020-12-18] MEDS: LORazepam 2 mg/ml vial IV PRN ×2 (01:42→09:33)
--- NOTE | 2020-12-18 06:24 | NUR ---
Patient in room BAO 360. I have received report from NATHAN Gusman and had the opportunity to ask questions and assume patient care.
--- NOTE | 2020-12-18 06:48 | NUR ---
Problems reprioritized. Patient report given, questions answered & plan of care reviewed with Lon EVANS.
[2020-12-18 07:00] VITALS: BP 190/91
[2020-12-18] MEDS: levoTHYROXINE 100mcg tablet PO SCH (08:01)
[2020-12-18] MEDS: MULTIVIT-MIN/FERROUS GLUCONATE 9 MG/15 ML LIQUID PO SCH (08:01)
[2020-12-18] MEDS: allopurinol 100mg tablet PO SCH (08:02)
[2020-12-18] MEDS: famotidine 20mg tablet PO SCH (08:02)
[2020-12-18] MEDS: thiamine 100mg tablet PO SCH (08:02)
[2020-12-18] MEDS: gabapentin 300mg capsule PO SCH (08:02)
[2020-12-18] MEDS: lactobacillus rhamnosus 10,000 MMU CELLS/CAPSULE PO SCH (08:02)
[2020-12-18] MEDS: metoprolol succinate 25mg (24-HOUR) SR. Tablet PO SCH (08:02)
[2020-12-18] MEDS: nystatin 15 GM powder TP SCH (08:02)
[2020-12-18] MEDS: folic acid 1mg tablet PO SCH (08:02)
[2020-12-18] MEDS: guaiFENesin 200 MG/10 ML oral syrup UD cup PO SCH (08:07)
[2020-12-18] MEDS: lactose-reduced food (Ensure Enlive) - 237ml bottle PO SCH (08:11)
[2020-12-18 09:40] VITALS: BP 116/81
--- NOTE | 2020-12-18 09:52 | NUR ---
Patient's has 1 belongings bag. 4 rings total (2 yellow color and 2 silver color) in denture cup with patients label placed in belongings bag. Calling [facility] to give report but placed on hold. Addendum: 12/18/20 at 1001 by Oneal Smith RN placed on hold and unable to give report to receiving nurse Stephania. Was notified that Stephania "is probably tied up in another room right now she will call you back." Phone number given to call back at. Awaiting Stephania to call back for report.
--- NOTE | 2020-12-18 10:37 | NUR ---
Report given to [facility] to transfer to [facility]. Shante and Fallon given the opportunity to ask and have questions answered. They are aware patient has guerra and was placed in a brief for transport as patient is incontinent of bowel and bladder. Patient sent with all personal belongings. PICC dc'd and wound pictures taken.
--- NOTE | 2020-12-18 10:50 | NUR ---
Report called and given to Nurse Cat Addendum: 12/18/20 at 1051 by Oneal Smith RN Report called and given to Nurse Cat at [facility].
== END 2020-12-18 10:35 | DRG 870 ==
LOC: ER 17:38 → ED HOLD 11-06 00:42 → ICU 2S 11-06 16:10 → PCU 3S 11-09 17:22 → CICU 2S 11-12 07:58 → PCU 3S 11-26 13:05 → SUR 3N 12-14 13:41
PROVIDERS: ADMIT Surgery; ATTEND Surgery
PROC: 5A0935A Assistance with Respiratory Ventilation, Less than 24 Consecutive Hours, High Flow/Velocity Cannula (ICD-10-PCS; 2020-11-11)
PROC: 0BH17EZ Insertion of Endotracheal Airway into Trachea, Via Natural or Artificial Opening (ICD-10-PCS; principal; 2020-11-12)
PROC: 5A1955Z Respiratory Ventilation, Greater than 96 Consecutive Hours (ICD-10-PCS; 2020-11-12)
PROC: 04HY32Z Insertion of Monitoring Device into Lower Artery, Percutaneous Approach (ICD-10-PCS; 2020-11-12)
PROC: 4A133B1 Monitoring of Arterial Pressure, Peripheral, Percutaneous Approach (ICD-10-PCS; 2020-11-12)
PROC: 4A133J1 Monitoring of Arterial Pulse, Peripheral, Percutaneous Approach (ICD-10-PCS; 2020-11-12)
PROC: 06HY33Z Insertion of Infusion Device into Lower Vein, Percutaneous Approach (ICD-10-PCS; 2020-11-12)
PROC: 02HV33Z Insertion of Infusion Device into Superior Vena Cava, Percutaneous Approach (ICD-10-PCS; 2020-11-15)
PROC: B548ZZA Ultrasonography of Superior Vena Cava, Guidance (ICD-10-PCS; 2020-11-15)
PROC: 30233N1 Transfusion of Nonautologous Red Blood Cells into Peripheral Vein, Percutaneous Approach (ICD-10-PCS; 2020-11-18)
PROC: 5A0945A Assistance with Respiratory Ventilation, 24-96 Consecutive Hours, High Flow/Velocity Cannula (ICD-10-PCS; 2020-11-24)
PROC: BW281ZZ Computerized Tomography (CT Scan) of Head using Low Osmolar Contrast (ICD-10-PCS; 2020-12-01)
DX: A41.9 Sepsis, unspecified organism (principal); R65.21 Severe sepsis with septic shock; G93.41 Metabolic encephalopathy; J69.0 Pneumonitis due to inhalation of food and vomit; J96.01 Acute respiratory failure with hypoxia; M62.82 Rhabdomyolysis; N17.9 Acute kidney failure, unspecified; E87.4 Mixed disorder of acid-base balance; F10.29 Alcohol dependence with unspecified alcohol-induced disorder; I10 Essential (primary) hypertension; D32.9 Benign neoplasm of meninges, unspecified; I48.91 Unspecified atrial fibrillation; Z20.822 Contact with and (suspected) exposure to COVID-19; Z51.5 Encounter for palliative care; Z66 Do not resuscitate; L89.152 Pressure ulcer of sacral region, stage 2; G89.29 Other chronic pain; N13.9 Obstructive and reflux uropathy, unspecified; M10.9 Gout, unspecified; R62.7 Adult failure to thrive; M54.9 Dorsalgia, unspecified; F41.9 Anxiety disorder, unspecified; D64.9 Anemia, unspecified; E87.6 Hypokalemia; E03.9 Hypothyroidism, unspecified; S30.0XXA Contusion of lower back and pelvis, initial encounter; W19.XXXA Unspecified fall, initial encounter; Z78.1 Physical restraint status; Z85.038 Personal history of other malignant neoplasm of large intestine; Z85.46 Personal history of malignant neoplasm of prostate; Z79.899 Other long term (current) drug therapy; Z68.25 Body mass index [BMI] 25.0-25.9, adult
CPT/HCPCS: 36415; 36430; 36573; 36600; 70450; 70470; 71045; 71250; 72125; 74018; 74176; 80048; 80053; 80305; 80320; 81001; 82140; 82272; 82550; 82803; 82948; 83036; 83605; 83735; 84100; 84132; 84134; 84145; 84443; 84478; 84484; 85007; 85008; 85018; 85025; 85027; 85379; 85610; 85730; 86885; 86900; 86901; 86920; 87040; 87045; 87046; 87070; 87077; 87081; 87088; 87186; 87324; 87426; 87449; 92508; 92616; 93005; 93306; 93970; 94002; 94003; 94640; 94760; 94799; 97110; 97116; 97161; 97164; 97530; 97535; 99291; G0378; J0290; J0456; J0696; J1160; J1644; J1650; J1815; J1885; J1940; J1956; J2060; J2250; J2543; J2560; J2704; J2765; J2920; J2930; J3010; J3411; J3475; J3480; J3490; J7030; J7042; J7050; J7060; J7070; J7120; J7512; P9016; P9045; P9047; Q9963; Q9967